=== PATIENT | female | born 1950 | race Caucasian/White ===

== ENCOUNTER 2017-01-15 14:22 | Emergency (ER) | payer MEDICARE, OTHER ==
[2017-01-15 14:43] VITALS: BP 113/45
--- NOTE | 2017-01-15 15:23 | UC ---
Minor Trauma HPI - HPI Summary HPI Summary: neck pain x 1 day s/p fall backward , hit her neck to a wooden stick , c/o neck pain , pain radiates to his shoulders, + numbness of both hand no loc , no headache, no n/v - History of Current Complaint Chief Complaint: UCHeadInjury Stated Complaint: DIZZY HEAD INJURY Time Seen by Provider: 01/15/17 14:45 Hx Obtained From: Patient Hx Last Menstrual Period: 08/29/92 Onset/Duration: Sudden Onset, Lasting Hours - 5, Still Present Onset Of Pain: Immediate Severity Initially: Moderate Severity Currently: Moderate Mechanism Of Injury: Blunt Trauma, Direct Blow, Fall From A Standing Position Aggravating Factor(s): Movement Alleviating Factor(s): Nothing Associated Signs And Symptoms: Negative: Loss Of Consciousness, Ecchymosis, Swelling - Allergies/Home Medications Allergies/Adverse Reactions: Allergies Allergy/AdvReac Type Severity Reaction Status Date / Time Bupropion [From Wellbutrin] Allergy See Comment Verified 01/15/17 14:31 Home Medications: Home Medications Ibuprofen [Ibuprofen 200 MG] 600 mg PO Q6H PRN 01/15/17 [History Confirmed 01/15] PMH/Surg Hx/FS Hx/Imm Hx Endocrine History: Diabetes Cardiovascular History: Cardiac Disease - Surgical History Surgical History: Yes Surgery Procedure, Year, and Place: t/a 1970, hysterectomy 1992, d & C x 8, cardiac stents x 6- last stent was placed 02/2015- [facility] - Family History Known Family History: Positive: Hypertension, Diabetes - Social History Alcohol Use: None Substance Use Type: Prescribed Smoking Status (MU): Never Smoked Tobacco - Immunization History Most Recent Tetanus Shot: 2009 Review of Systems Constitutional: Negative Skin: Negative Eyes: Negative ENT: Negative Respiratory: Negative Cardiovascular: Negative Neurovascular: Decreased Sensation - bilateral hand Musculoskeletal: Arthralgia - neck pain All Other Systems Reviewed And Are Negative: Yes Physical Exam Triage Information Reviewed: Yes Appearance: Well-Appearing, Pain Distress, Obese Vital Signs: Initial Vital Signs Temp 97.7 F 01/15/17 14:36 Pulse 65 01/15/17 14:36 Resp 18 01/15/17 14:36 BP 113/45 01/15/17 14:36 Pulse Ox 98 01/15/17 14:36 Vital Signs Reviewed: Yes Eyes: Positive: Conjunctiva Clear ENT: Positive: Normal ENT inspection, Hearing grossly normal, Pharynx normal Neck: Positive: Supple, Nontender, No Lymphadenopathy Respiratory: Positive: Chest non-tender, Lungs clear, Normal breath sounds Cardiovascular: Positive: RRR, No Murmur, Pulses Normal Abdominal Exam: Normal Abdomen Description: Positive: Nontender, Soft. Negative: CVA Tenderness (R), CVA Tenderness (L), Distended, Guarding Bowel Sounds: Positive: Present Musculoskeletal: Positive: Strength Intact, No Edema, ROM Limited @, Other: - neck: no cervical spine tenderness, limited ROM on flexion , extension, rotation Neurological: Positive: Alert Skin Exam: Normal Minor Trauma Course/Dx - Differential Dx/Diagnosis Provider Diagnoses: contusion neck Discharge - Discharge Plan Condition: Stable Disposition: HOME Patient Education Materials: Contusion in Adults (ED), Cervical Sprain (ED) Referrals: Jason Mercado MD [Primary Care Provider] - 5 Days
--- NOTE | 2017-01-15 15:46 | RAD ---
Indication: Neck pain. 3 views of the cervical spine demonstrates vertebral bodies to be normal in height. Disc space narrowing at C2-C3, C5-C6 is noted. The entire cervical spine is not visualized. IMPRESSION: Degenerative disc disease at C2-C3 and C5-C6. C7-T1 is not visualized.
== END 2017-01-15 15:50 | disposition home or self-care (01) ==
LOC: UCCORT 14:22
DX: S10.93XA Contusion of unspecified part of neck, initial encounter (principal); W18.09XA Striking against other object with subsequent fall, initial encounter; Y93.9 Activity, unspecified; Y92.9 Unspecified place or not applicable; E11.8 Type 2 diabetes mellitus with unspecified complications; E66.9 Obesity, unspecified; Z95.5 Presence of coronary angioplasty implant and graft; Z90.710 Acquired absence of both cervix and uterus
CPT/HCPCS: 72040; 99212; G0463

== ENCOUNTER 2017-05-14 06:50 | Inpatient (IN) | payer MEDICARE ==
--- NOTE | 2017-05-06 18:57 | HP ---
HISTORY AND PHYSICAL: DATE OF ADMISSION/SURGERY: 05/14/17 DATE OF OFFICE VISIT: 05/04/17 SURGEON: Cait Heller MD * (DICTATED BY THERESE DURON) PROCEDURE: Right total hip arthroplasty. CHIEF COMPLAINT: Right hip pain. HISTORY OF PRESENT ILLNESS: Ms. Smith is a 66-year-old female with complaints of right hip pain secondary to end-stage osteoarthritis. She has failed conservative management and elected to proceed with a right total hip arthroplasty, which is scheduled for 05/14/[address] Heller. PAST MEDICAL HISTORY: Diabetes, hypertension, prior KS, high cholesterol, hemochromatosis, sleep apnea. PAST SURGICAL HISTORY: Six cardiac stents placed, tonsillectomy, adenoidectomy , hysterectomy. CURRENT MEDICATIONS: 1. Oxycodone 15 mg every 4 hours. 2. Valsartan 40 mg daily. 3. Amlodipine 10 mg daily. 4. Cyclobenzaprine 10 mg 3 times a day as needed. 5. Lantus. 6. NovoLog. 7. Zolpidem tartrate 10 mg daily. 8. Atorvastatin calcium 40 mg daily. 9. Carvedilol 3.125 mg 3 times a day. 10. Plavix 75 mg daily. 11. Fenofibrate 54 mg daily. 12. Glipizide 10 mg twice a day. 13. Ranexa 1000 mg twice a day. 14. Aspirin 81 mg daily. 15. Gabapentin 600 mg twice a day, 300 mg q.h.s. ALLERGIES: To WELLBUTRIN and TYLENOL. FAMILY HISTORY: Heart disease, hypertension, diabetes, stroke, and Alzheimer's. SOCIAL HISTORY: She is a 66-year-old female. She lives with her daughter. She does not smoke, use drugs or alcohol. She is a retired nurse. REVIEW OF SYSTEMS: A complete 14-point review of systems was reviewed with the patient, was positive for diabetes. She denies history of DVT, PE, or anesthesia problems. PHYSICAL EXAMINATION GENERAL: She is well developed, well nourished, in no acute distress. VITAL SIGNS: She stands 5 feet 2 inches tall, weighs 197 pounds. Her blood pressure is 129/60, heart rate is 72. HEENT: Normocephalic, atraumatic. NECK: Supple. No palpable lymph nodes. PULMONARY: Lungs are clear to auscultation bilaterally. CARDIO: Regular rate and rhythm. Strong S1, S2. ABDOMEN: Soft, nontender, nondistended. NEUROLOGICAL: Alert and oriented x3. Cranial nerves II through XII are intact. MUSCULOSKELETAL: Right lower extremity, skin is intact. There are no open wounds or abrasions. She has decreased internal and external rotation of her right hip. She walks with an antalgic type gait. She has 2+ dorsalis pedis pulses. Her lower extremity muscle group strengths are intact at 5/5 and she has intact sensation. ASSESSMENT AND PLAN: Ms. Smith is a 66-year-old female with complaints of right hip pain secondary to end-stage osteoarthritis. She has failed conservative management and elected to proceed with a right total hip arthroplasty, which is scheduled for 05/14/[address] Heller discussed the risks and benefits of the surgery at today's visit and all of her questions were answered. She was told to stop her Plavix and aspirin 1 week prior to the surgery. She will follow up with Dr. Heller in 2 weeks after the surgery. THERESE DURON [id number]/[facility] #: [id number] MYRTLE
[~2017-05-14 06:50] MED LIST: Buffered Lidocaine 0.9% SYRIN* 5 ML/SYR SYRINGE INTRADERM ONE; Famotidine IV* 10 MG/ML 2 ML (20 mg) IV ONE; Metoclopramide TAB* 10 MG PO ONE
[2017-05-14] MEDS ORDERED: Metoclopramide TAB* 10 MG ONE (07:03)
[2017-05-14] MEDS ORDERED: Famotidine IV* 10 MG/ML 2 ML (20 mg) ONE (07:03)
[2017-05-14] MEDS ORDERED: Buffered Lidocaine 0.9% SYRIN* 5 ML/SYR SYRINGE ONE (07:04)
[2017-05-14] MEDS ORDERED: Ketorolac INJ* 30 MG/ML 1 ML VIAL ONE (07:40)
[2017-05-14] MEDS ORDERED: Propofol* 10 MG/ML 20 ML BTL IV PUSH ONE (07:40)
[2017-05-14] MEDS ORDERED: fentaNYL* 50 MCG/ML 2 ML VIAL (100 MCG VIAL) ONE ×3 (07:40→11:38)
[2017-05-14] MEDS ORDERED: Ondansetron INJ* 2 MG/ML VIAL ONE (07:40)
[2017-05-14] MEDS ORDERED: Lidocaine 2% PF * 5 ML VIAL ONE (07:40)
[2017-05-14] MEDS ORDERED: Dexamethasone IV* 4 MG/ML 1 ML (4 MG) ONE (07:40)
[2017-05-14] MEDS ORDERED: KETAMINE HCL* 50 MG/ML 10 ML VIAL ONE (07:40)
[2017-05-14] MEDS ORDERED: Midazolam* 1 MG/ML 5 ML VIAL (5 MG) ONE (07:40)
[2017-05-14] MEDS ORDERED: ceFAZolin 2 GM PREMIX (*) 2 GM/50 ML BAG IVPB ONE (07:53)
[2017-05-14] MEDS ORDERED: EPHEDrine (Pressors)* 50 MG/ML VIAL ONE (08:15)
[2017-05-14] MEDS ORDERED: Cisatracurium* 2 MG/ML MDV 5 ML ONE (08:15)
[2017-05-14] MEDS ORDERED: Phenylephrine IV* 40 MCG/ML 10 ML SYRINGE ONE ×2 (08:31→08:40)
[2017-05-14] MEDS ORDERED: Phenylephrine INJ* 10 MG/ML 1 ML VIAL (10 MG) ONE (08:40)
[2017-05-14] MEDS ORDERED: fentaNYL* 50 MCG/ML 5 ML VIAL (250 MCG VIAL) ONE (08:50)
[2017-05-14] MEDS ORDERED: Polyethylene Glycol 3350* 17 GM PACKET PO PRN (08:56)
[2017-05-14] MEDS ORDERED: diPHENhydraMINE IV* 50 MG/ML 1 ml VIAL (BENADRYL) IV PRN (08:56)
[2017-05-14] MEDS ORDERED: diPHENhydraMINE PO* 25 MG PO PRN (08:56)
[2017-05-14] MEDS ORDERED: Morphine INJ* 2 MG/ML 1 ML CARPUJECT IV PRN ×2 (08:56→09:14)
[2017-05-14] MEDS ORDERED: Ondansetron INJ* 2 MG/ML VIAL IV PRN ×2 (08:56→09:28)
[2017-05-14] MEDS ORDERED: Bisacodyl SUPP* 10 MG SUPP PR PRN (08:56)
[2017-05-14] MEDS ORDERED: Glycopyrrolate IV* 0.2 MG/ML 1 ML VIAL ONE (09:01)
[2017-05-14] MEDS ORDERED: Ibuprofen TAB* 600 MG PO PRN (09:06)
[2017-05-14] MEDS ORDERED: Bupivacaine 0.5% SDV PF* 30 ML VIAL ONE (09:59)
--- NOTE | 2017-05-14 10:21 | RAD ---
HISTORY: Right hip replacement COMPARISONS: February 23, 2017 VIEWS: 1, frontal portable intraoperative view of the right hip FINDINGS: Single portable intraoperative view of the right hip performed during right hip arthroplasty demonstrates a right hip arthroplasty with a temporary femoral sizing component. IMPRESSION: LIMITED PORTABLE INTRAOPERATIVE VIEW OF THE RIGHT HIP DURING ARTHROPLASTY
[2017-05-14] MEDS ORDERED: HYDROmorphone INJ* 1 MG/ML CARPUJECT SYRINGE ONE ×2 (10:53→12:32)
[2017-05-14] MEDS: HYDROmorphone INJ* 1 MG/ML CARPUJECT SYRINGE IV PRN ×2 (10:55→11:21)
[2017-05-14] MEDS ORDERED: Dextrose 50% Syringe 50 ML* 25 GM/50 ML SYRINGE IV PUSH PRN (11:00)
[2017-05-14] MEDS: fentaNYL* 50 MCG/ML 2 ML VIAL (100 MCG VIAL) IV PRN ×4 (11:02→12:18)
[2017-05-14] MEDS: oxyCODONE TAB* 5 MG TAB PO PRN ×3 (11:23→21:59)
[2017-05-14] MEDS ORDERED: oxyCODONE TAB* 5 MG TAB ONE (11:24)
--- NOTE | 2017-05-14 11:26 | RAD ---
INDICATION: Status post right hip arthroplasty COMPARISON: Preoperative x-ray February 23, 2017 TECHNIQUE: 3 views of the right hip were obtained. FINDINGS: The right hip prosthesis is anatomically aligned in the AP and lateral projections. There is no evidence of periprostatic fracture. Many visualized bones are intact and appropriately aligned. IMPRESSION: Anatomic alignment of recently placed right hip prosthesis.
[2017-05-14] MEDS: Insulin LISPRO* 1 UNITS UNIT SUBCUT SCH ×2 (13:56→17:51)
[2017-05-14] MEDS: Gabapentin CAP(*) 300 MG PO SCH ×2 (13:57→21:25)
[2017-05-14] MEDS: Cyclobenzaprine TAB* 10 MG PO SCH ×2 (13:57→21:25)
[2017-05-14] MEDS ORDERED: Carvedilol TAB* 3.125 MG PO SCH (14:00)
[2017-05-14] MEDS: Docusate CAP* 100 MG PO SCH ×2 (14:02→21:20)
[2017-05-14] MEDS: Carvedilol TAB* 3.125 MG PO SCH ×2 (14:31→21:23)
[2017-05-14] MEDS: Morphine INJ* 2 MG/ML 1 ML SYRINGE (TWO MG - NEW SYRINGE VERSION) IV PRN (15:31)
[2017-05-14] MEDS: ceFAZolin 1 GM VIAL(*) 1 GM in NS 0.9% 50 ML* 50 ML IVPB SCH (16:52)
[2017-05-14] MEDS ORDERED: Warfarin TAB(*) 6 MG PO ONE (17:00)
[2017-05-14] MEDS: Atorvastatin* 40 MG TAB PO SCH (17:50)
--- NOTE | 2017-05-14 19:13 | CONS ---
CC: Dr. Mercado; Dr. Heller * CONSULTATION REPORT: DATE OF CONSULT: 05/14/17 PRIMARY CARE PROVIDER: Dr. Mercado. REQUESTING PHYSICIAN IN CONSULT: Dr. Heller. ATTENDING PHYSICIAN WHILE IN THE HOSPITAL: Nicolasa Jean Baptiste MD (report being dictated by Yoshi James NP). REASON FOR MEDICAL CONSULTATION: Medical management of comorbid medical conditions. HISTORY OF PRESENTING ILLNESS: I refer you to Dr. Heller's H and P for further details. In short, Ms. Smith is a 66-year-old female patient with a complex medical history. She is diabetic, has a history of CAD, SHAKIR, hypertension, hyperlipidemia, hemochromatosis, history of arthritis, and neuropathy, who presented in the outpatient setting to Dr. Heller's services with complaints of right hip pain. She failed conservative therapy and it was felt that she would benefit from a possible right total hip replacement. The patient underwent the procedure today. She underwent cardiac risk stratification with her PCP and her poultry process worker, but because of her complexity , we were asked to evaluate and consult and help manage her during her hospital stay. She was evaluated in the PACU. She states she is not having any chest pain. She denies any shortness of breath. Biggest complaint right now is that she is having some right hip pain. She is denying having any abdominal discomfort. No nausea, no vomiting. She denies feeling lightheaded and states that she does not feel like she is going to pass out. She, otherwise, is offering no other complaints besides the right hip pain. PAST MEDICAL HISTORY: Significant for: 1. Diabetes. 2. Hypertension. 3. CAD. 4. Hyperlipidemia. 5. SHAKIR. 6. Hemochromatosis. 7. Arthritis. 8. Neuropathy. PAST SURGICAL HISTORY: 1. She has had heart catheterization. 2. She has had tonsillectomy. 3. Hysterectomy. HOME MEDICATIONS: According to the preop list include: 1. Glipizide 1 tablet p.o. b.i.d. 2. Carvedilol 3.125 mg p.o. t.i.d. 3. Neurontin 600 mg p.o. t.i.d. 4. Ranexa 1000 mg p.o. b.i.d. 5. Norvasc 10 mg p.o. daily. 6. Ambien 10 mg at bedtime. 7. Oxycodone 15 mg every 6 hours as needed. 8. Imdur 60 mg p.o. in the morning. 9. Losartan 40 mg p.o. daily. 10. Ibuprofen 600 mg every 6 hours as needed. 11. Lantus, she states she was taking 90 units in the morning and 80 units at bedtime. 12. Lispro 40 units t.i.d. 13. Aspirin 81 mg daily. 14. Lipitor 40 mg daily. 15. Plavix 75 mg daily. 16. Flexeril 10 mg p.o. t.i.d. 17. Fenofibrate 54 mg p.o. at bedtime. 18. Lasix 40 mg daily. ALLERGIES TO MEDICATIONS: Include WELLBUTRIN and TYLENOL. She states TYLENOL does not work. FAMILY HISTORY: Both her mom and father had a history of CAD. SOCIAL HISTORY: She does not smoke, she does not drink. Surrogate decision maker is her daughter, Ronnell. REVIEW OF SYSTEMS: There is no documented fever. She denied having any significant weight change. There is no double vision. She denies having any ear discharge. There is no rhinorrhea. No sore throat. No thyroid enlargement. She denies having any chest pain, there is no orthopnea, there is no nocturnal dyspnea. There was no abdominal pain. There is no nausea, no vomiting. There is no dysuria, no frequency, no seizure, no loss of consciousness. No pruritus and no skin ulcerations. Review of 14 systems completed, all others negative. PHYSICAL EXAMINATION: General: At this time, Ms. Smith is a 66-year-old female patient. She is sitting in the PACU stretcher. She does not appear to be in any acute distress. Vital Signs: Blood pressure 91/57, pulse 63, respirations 16, O2 sat 95% on 3 L, temperature 97.5. HEENT: Head: Atraumatic , normocephalic. Eyes: Sclerae anicteric, not pale. Pupils reactive to light. Neck: Supple. Throat: Oral mucosa appears to be dry. No oropharyngeal erythema. Lungs: Clear to auscultation bilaterally. No wheezes, rales, or rhonchi. Heart: Sounds S1, S2. Regular rate and rhythm. No murmurs, rubs or gallops. Abdomen: Soft, flat, nontender. Bowel sounds hypoactive. Extremities: Pulses 2+ throughout. Distal CSM checks are intact bilaterally. She is unable to move the lower extremity as she is in a hip abductor pillow. She is moving her upper extremities with 5/5 strength. Neurological: She is drowsy, but she does awaken to her name being called. She answers questions. She is alert and oriented x3. Her speech is clear. Her tongue is midline. She had no gross focal deficits. Skin: Skin is intact with the exception that she has an incision to the right hip, which is covered with ABD dressing, which is clean, dry, and intact. DIAGNOSTIC STUDIES/LAB DATA: Her labs preoperatively, WBC is 6.8, RBC of 3.96, hemoglobin of 12.6, hematocrit 36, platelet count of 249,000. INR 1.04. Sodium 140, potassium 4.1, chloride 105, bicarb 28, BUN 16, creatinine 0.96, glucose of 71. Total bili 0.4, AST 15, ALT 6, and alk phos 78. Urine preop showed 2+ leukocyte esterase, 2+ WBC. Microbiology was negative. She did have a verbal report of a stress test from November of this year, which was negative from her cardiology notes. Also, EKG showed a sinus rhythm, rate of 71, no ST elevations or T-wave inversions. She did have a preop chest x-ray, which showed no acute disease. Old medical records reviewed. ASSESSMENT AND PLAN: Ms. Smith is a 66-year-old female patient with multiple medical problems, coming into our orthopedic services today for elective right total hip. Recommendations at this point are: 1. Status post right total hip. We will defer the management to Dr. Heller and her team. 2. Diabetes. I am going to cut her Lantus in half to 45 units subcu b.i.d. She is on 80 at night and 90 in the morning typically. When she is more awake and eating more, we will slowly increase her dose back to her baseline and we will continue the sliding scale. When she goes home, she can go back on glipizide and Lantus. 3. Hypertension. I am just going to continue her Imdur and her carvedilol with hold parameters. I am holding the amlodipine and the Lasix for the time being. We will restart these when her blood pressure tolerates. Her last blood pressure was 105/66. We will continue to follow this closely. 4. Coronary artery disease. The Orthopedics did restart her Plavix. When it is deemed safe, she should go back also on her aspirin, but this could be addressed with the primary as long as she is at least on the Plavix. We will go ahead and continue the beta navi and her Imdur, and I would continue her Ranexa. In the immediate postoperative setting, I am holding her ARB. She is on valsartan. 5. Coronary artery disease. We will restart her ARB when able. Also, she is on a statin therapy as well. 6. Hyperlipidemia. Continue statin therapy. 7. Obstructive sleep apnea. Continue CPAP. 8. Arthritis. She can follow up with her PCP. 9. Neuropathy. P.r.n. pain meds have been made available. 10. Hemochromatosis. Again, we will continue to monitor. Not an active issue currently. 11. DVT prophylaxis. Defer to the primary team. 12. Code status. Full code. 13. Fluids, electrolytes, and nutrition. I would recommend a consistent carb diet. TIME SPENT: On this consult, 60 minutes, greater than half the time was spent face- to-face with the patient obtaining my history and physical, other half time was spent going over the plan of care with the patient and implementing the plan of care. I did discuss the plan of care with my attending, Dr. Jean Baptiste; she is in agreement. YOSHI JAMES, LINA [id number]/[facility] #: [id number] MYRTLE
[2017-05-14] MEDS ORDERED: Zolpidem TAB* 10 MG PO SCH (21:00)
[2017-05-14] MEDS: CMCS:Ranolazine (NF) 500 MG TAB PO SCH (21:25)
[2017-05-14] MEDS: Magnesium Hydroxide LIQ* 30 ML UDC PO SCH (21:26)
[2017-05-14] MEDS: Insulin GLARGINE(*) 1 UNITS UNIT SUBCUT SCH (21:26)
[2017-05-14] MEDS: FENOFIBRATE 54 MG PO SCH (21:26)
[2017-05-15] MEDS: ceFAZolin 1 GM VIAL(*) 1 GM in NS 0.9% 50 ML* 50 ML IVPB SCH ×2 (00:28→09:47)
[2017-05-15] MEDS: Morphine INJ* 2 MG/ML 1 ML SYRINGE (TWO MG - NEW SYRINGE VERSION) IV PRN ×3 (00:29→20:51)
[2017-05-15] MEDS: Zolpidem TAB* 10 MG PO PRN ×2 (00:29→23:39)
[2017-05-15 05:40] LABS: Hematocrit 25 % (35-47); Hemoglobin 8.5 g/dl (12.0-16.0); Mean Corpuscular HGB Conc 34 g/dl (31-36); Mean Corpuscular Hemoglobin 32 pg (27-31); Mean Corpuscular Volume 94 fL (80-97); Mean Platelet Volume 10 um3 (7.4-10.4); Red Blood Count 2.66 10^6/ul (4.0-5.4); Red Cell Distribution Width 13 % (10.5-15); White Blood Count 12.9 10^3/ul (3.5-10.8)
[2017-05-15 05:50] LABS: BUN/Creatinine Ratio 24.1 (8-20); Calcium 8.7 mg/dL (8.6-10.3); EGFR African American 60.5 (>60)
[2017-05-15 05:52] LABS: Potassium 5.1 mmol/L (3.5-5.0)
[2017-05-15] MEDS: Insulin LISPRO* 1 UNITS UNIT SUBCUT SCH ×3 (08:38→17:33)
[2017-05-15] MEDS: Insulin GLARGINE(*) 1 UNITS UNIT SUBCUT SCH ×2 (08:39→20:48)
[2017-05-15] MEDS: Cyclobenzaprine TAB* 10 MG PO SCH ×3 (08:42→20:47)
[2017-05-15] MEDS: oxyCODONE TAB* 5 MG TAB PO PRN ×4 (08:42→23:39)
[2017-05-15] MEDS: CMCS:Ranolazine (NF) 500 MG TAB PO SCH ×2 (08:42→20:50)
[2017-05-15] MEDS: Gabapentin CAP(*) 300 MG PO SCH ×3 (08:43→20:48)
[2017-05-15] MEDS: Docusate CAP* 100 MG PO SCH ×2 (08:43→20:47)
[2017-05-15] MEDS: Carvedilol TAB* 3.125 MG PO SCH ×3 (08:44→20:46)
[2017-05-15] MEDS: Isosorbide Mononitrate ER TAB* 60 MG PO SCH (08:44)
[2017-05-15] MEDS: Magnesium Hydroxide LIQ* 30 ML UDC PO SCH ×2 (08:47→20:28)
[2017-05-15] MEDS ORDERED: amLODIPine TAB* 5 MG PO SCH (09:00)
[2017-05-15] MEDS ORDERED: Enoxaparin(*) 40 MG/0.4 ML SYR SUBCUT SCH (09:00)
[2017-05-15] MEDS ORDERED: Vitamin THERAPEUTIC TAB PO SCH (09:00)
[2017-05-15] MEDS ORDERED: Pneumococcal *Vac Polyvalent 0.5 ML VIAL IM ONE (09:00)
[2017-05-15] MEDS ORDERED: Isosorbide Mononitrate ER TAB* 60 MG PO SCH (09:00)
[2017-05-15] MEDS ORDERED: Furosemide TAB* 20 MG PO SCH (09:00)
[2017-05-15] MEDS ORDERED: Valsartan TAB* 40 MG PO SCH (09:00)
--- NOTE | 2017-05-15 09:33 | PN ---
Subjective Date of Service: 05/15/17 Interval History: Patient seen this morning. Reports pain fairly well controlled. Appetite is returning. No N/V. Pires removed, has not urinated yet. Passing gas. States she has had 6 stents placed, has been told she will need CABG in the future. Family History: Unchanged from Admission Social History: Unchanged from Admission Past Medical History: Unchanged from Admission Objective Active Medications: Atorvastatin Calcium (Lipitor*) 40 mg PO QPM [facility] Last Admin: 05/14/17 17:50 Dose: 40 mg Bisacodyl (Dulcolax Supp*) 10 mg MS DAILY PRN PRN Reason: constipation Carvedilol (Coreg Tab*) 3.125 mg PO TID [facility] Last Admin: 05/15/17 08:44 Dose: 3.125 mg Clopidogrel Bisulfate (Plavix Tab*) 75 mg PO QAM [facility] Cyclobenzaprine HCl (Flexeril Tab*) 10 mg PO TID [facility] Last Admin: 05/15/17 08:42 Dose: 10 mg Dextrose (D50w Syringe 50 Ml*) 12.5 gm IV PUSH .FOR FS < 60 - SS PRN PRN Reason: FS < 60 Diphenhydramine HCl (Benadryl Iv*) 25 mg IV Q6H PRN PRN Reason: itching Diphenhydramine HCl (Benadryl Po*) 25 mg PO Q6H PRN PRN Reason: itching Docusate Sodium (Colace Cap*) 100 mg PO BID [facility] Last Admin: 05/15/17 08:43 Dose: 100 mg Enoxaparin Sodium (Lovenox(*)) 40 mg SUBCUT Q24H [facility] Last Admin: 05/15/17 08:47 Dose: 40 mg Gabapentin (Neurontin Cap(*)) 600 mg PO TID [facility] Last Admin: 05/15/17 08:43 Dose: 600 mg Lactated Ringer's (Lactated Ringers 1000 Ml Bag*) 1,000 mls @ 100 mls/hr IV PER RATE [facility] Last Admin: 05/15/17 00:27 Dose: 100 mls/hr Ibuprofen (Motrin Tab*) 600 mg PO Q6H PRN PRN Reason: PAIN Insulin Glargine (Lantus(*)) 45 units SUBCUT Q12H [facility] Last Admin: 05/15/17 08:39 Dose: 45 units Insulin Human Lispro (Humalog*) 0 units SUBCUT AC [facility] PRN Reason: Protocol Last Admin: 05/15/17 08:38 Dose: 2 units Isosorbide Mononitrate (Imdur Er Tab*) 60 mg PO QAM [facility] Last Admin: 05/15/17 08:44 Dose: 60 mg Lactulose (Lactulose*) 30 ml PO Q6H PRN PRN Reason: constipation Magnesium Hydroxide (Milk Of Magnesia Liq*) 30 ml PO BID [facility] Last Admin: 05/15/17 08:47 Dose: Not Given Morphine Sulfate (Morphine Inj (Syringe)*) 2 mg IV Q3H PRN PRN Reason: PAIN Last Admin: 05/15/17 00:29 Dose: 2 mg Multivitamins (Theragran Tab*) 1 tab PO DAILY [facility] Last Admin: 05/15/17 08:43 Dose: 1 tab Nf* (Fenofibrate [ (Fenofibrate] 54 Mg)) 54 mg PO BEDTIME [facility] Last Admin: 05/14/17 21:26 Dose: Not Given Ondansetron HCl (Zofran Inj*) 4 mg IV Q6H PRN PRN Reason: nausea Oxycodone HCl (Roxycodone Tab*) 15 mg PO Q4H PRN PRN Reason: PAIN - MILD TO MODERATE Last Admin: 05/14/17 17:57 Dose: 15 mg Oxycodone HCl (Roxycodone Tab*) 20 mg PO Q4H PRN PRN Reason: PAIN - MODERATE TO SEVERE Last Admin: 05/15/17 08:42 Dose: 20 mg Polyethylene Glycol/Electrolytes (Miralax*) 17 gm PO DAILY PRN PRN Reason: Constipation Ranolazine (Ranexa (Nf)) 1,000 mg PO BID [facility] Last Admin: 05/15/17 08:42 Dose: 1,000 mg Zolpidem Tartrate (Ambien Tab*) 10 mg PO BEDTIME PRN PRN Reason: SLEEP Last Admin: 05/15/17 00:29 Dose: 10 mg Vital Signs 05/14/17 05/14/17 05/14/17 10:42 10:45 10:49 Temperature 97.5 F Pulse Rate 63 64 Respiratory 16 16 Rate Blood Pressure 91/57 78/45 (mmHg) O2 Sat by Pulse 95 95 94 Oximetry 05/14/17 05/14/17 05/14/17 12:30 12:45 13:18 Temperature 97.7 F Pulse Rate 68 67 66 Respiratory 23 18 18 Rate Blood Pressure 114/54 103/55 101/52 (mmHg) O2 Sat by Pulse 97 96 99 Oximetry 05/15/17 05/15/17 05/15/17 03:23 07:41 08:42 Temperature 98.3 F 98.2 F Pulse Rate 79 77 Respiratory 18 16 16 Rate Blood Pressure 112/45 103/49 (mmHg) O2 Sat by Pulse 98 94 Oximetry Oxygen Devices in Use Now: None Appearance: Middle-aged, F, sitting in chair in NAD Eyes: No Scleral Icterus Ears/Nose/Mouth/Throat: Mucous Membranes Moist Neck: NL Appearance and Movements; NL JVP Respiratory: Symmetrical Chest Expansion and Respiratory Effort, Clear to Auscultation Cardiovascular: NL Sounds; No Murmurs; No JVD, RRR Abdominal: NL Sounds; No Tenderness; No Distention Lymphatic: No Cervical Adenopathy Extremities: - - R hip dressing in place, c/d/i, minimal edema in RLE Skin: No Rash or Ulcers Neurological: Alert and Oriented x 3 Result Diagrams: 05/15/17 04:53 05/15/17 04:53 Assess/Plan/Problems-Billing Assessment: R LUIS ARMANDO in a 66 yo F with hx of HTN, CAD s/p stent x 6, DM, hemochromatosis, neuropathy, SHAKIR, hemochromatosis - Patient Problems (1) Status post total hip replacement, right Current Visit: Yes Comment: Mangement as per Ortho. Patient on Coumadin/Lovenox. (2) HTN (hypertension) Current Visit: Yes Comment: BPs stable. Continue Coreg and Imdur. Continue to hold Losartan, Amlodipine and Lasix for now. (3) Diabetes Current Visit: Yes Comment: BGs well controlled. Continue reduced Lantus and HISS. Holding home Glipizide. (4) CAD (coronary artery disease) Current Visit: Yes Comment: Plavix to resume today. Holding ASA as patient will be on Coumadin. Continue beta-navi and statin. Continue Ranexa. (5) SHAKIR (obstructive sleep apnea) Current Visit: Yes Comment: CPAP qhs (6) Hemochromatosis Current Visit: Yes Comment: Not an active issue at this time. F/U as outpatient. (7) DVT prophylaxis Current Visit: Yes Comment: Lovenox/Coumadin
[2017-05-15] MEDS: Clopidogrel TAB* 75 MG PO SCH (09:47)
--- NOTE | 2017-05-15 11:28 | PN ---
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 Patient c/o hip pain, however is doing well with pain medication. VSS afebrile overnight. Objective: General- Well appearing, NAD, AO MSK- Dressing intact, no drainage noted, non-indurated. + DF/PF b/l, PT 2+ b/ l, neg homans b/l. 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 Plan: - Elevated K- continue to monitor, D/C daily MVI, lab draw tomorrow - DVT prophl- Coumadin 4mg tonight, continue lovenox. - Elevated creatinine- mild, continue to monitor - Resume plavix for stents - Continue PT - Continue current pain regimen - Patient for D/C to [facility], likely Thursday, has own transportation. Active Medications Generic Name Dose Route Start Last Admin Trade Name Freq PRN Reason Stop Dose Admin Atorvastatin Calcium 40 mg 05/14/17 18:00 05/14/17 17:50 Lipitor* PO 40 mg QPM YONNY Administration Bisacodyl 10 mg 05/14/17 08:56 Dulcolax Supp* DE DAILY PRN constipation Carvedilol 3.125 mg 05/14/17 14:00 05/15/17 08:44 Coreg Tab* PO 3.125 mg TID YONNY Administration Clopidogrel Bisulfate 75 mg 05/15/17 09:00 05/15/17 09:47 Plavix Tab* PO 75 mg QAM YONNY Administration Cyclobenzaprine HCl 10 mg 05/14/17 14:00 05/15/17 08:42 Flexeril Tab* PO 10 mg TID YONNY Administration Dextrose 12.5 gm 05/14/17 11:00 D50w Syringe 50 Ml* IV PUSH .FOR FS < 60 - SS PRN FS < 60 Diphenhydramine HCl 25 mg 05/14/17 08:56 Benadryl Iv* IV Q6H PRN itching Diphenhydramine HCl 25 mg 05/14/17 08:56 Benadryl Po* PO Q6H PRN itching Docusate Sodium 100 mg 05/14/17 09:00 05/15/17 08:43 Colace Cap* PO 100 mg BID YONNY Administration Enoxaparin Sodium 40 mg 05/15/17 09:00 05/15/17 08:47 Lovenox(*) SUBCUT 40 mg Q24H YONNY Administration Gabapentin 600 mg 05/14/17 14:00 05/15/17 08:43 Neurontin Cap(*) PO 600 mg TID YONNY Administration Lactated Ringer's 1,000 mls @ 100 mls/hr 05/14/17 09:00 05/15/17 00:27 Lactated Ringers 1000 Ml Bag* IV 100 mls/hr PER RATE YONNY Administration Insulin Glargine 45 units 05/14/17 21:00 05/15/17 08:39 Lantus(*) SUBCUT 45 units Q12H YONNY Administration Insulin Human Lispro 0 units 05/14/17 11:30 05/15/17 08:38 Humalog* SUBCUT 2 units AC YONNY Administration Protocol Isosorbide Mononitrate 60 mg 05/15/17 09:00 05/15/17 08:44 Imdur Er Tab* PO 60 mg QAM YONNY Administration Lactulose 30 ml 05/14/17 08:56 Lactulose* PO Q6H PRN constipation Magnesium Hydroxide 30 ml 05/14/17 21:00 05/15/17 08:47 Milk Of Magnesia Liq* PO Not Given BID YONNY Morphine Sulfate 2 mg 05/14/17 15:21 05/15/17 11:12 Morphine Inj (Syringe)* IV 2 mg Q3H PRN Administration PAIN Nf* (Fenofibrate [ 54 mg 05/14/17 21:00 05/14/17 21:26 Fenofibrate] 54 Mg) PO Not Given BEDTIME YONNY Ondansetron HCl 4 mg 05/14/17 08:56 Zofran Inj* IV Q6H PRN nausea Oxycodone HCl 15 mg 05/14/17 08:56 05/14/17 17:57 Roxycodone Tab* PO 15 mg Q4H PRN Administration PAIN - MILD TO MODERATE Oxycodone HCl 20 mg 05/14/17 09:09 05/15/17 08:42 Roxycodone Tab* PO 20 mg Q4H PRN Administration PAIN - MODERATE TO SEVERE Polyethylene Glycol/Electrolytes 17 gm 05/14/17 08:56 Miralax* PO DAILY PRN Constipation Ranolazine 1,000 mg 05/14/17 21:00 05/15/17 08:42 Ranexa (Nf) PO 1,000 mg BID YONNY Administration Warfarin Sodium 4 mg 05/15/17 17:00 Coumadin Tab(*) PO 05/15/17 17:01 ONCE@1700 ONE Protocol Zolpidem Tartrate 10 mg 05/14/17 10:59 05/15/17 00:29 Ambien Tab* PO 10 mg BEDTIME PRN Administration SLEEP
--- NOTE | 2017-05-15 14:03 | OP ---
OPERATIVE REPORT: DATE OF OPERATION: 05/14/17 DATE OF : 54 SURGEON: Cait Heller MD. HUMAN RESOURCES MGR: THERESE Gil. Douglas did help throughout the procedure with preparation of the leg, wound retraction, manipul ation of the hip, and wound closure. ANESTHESIOLOGIST: Dr. Nichols. ANESTHESIA: General. PRE-OP DIAGNOSIS: Severe endstage degenerative osteoarthritis of the right hip joint. POST-OP DIAGNOSIS: Severe endstage degenerative osteoarthritis of the right hip joint. OPERATIVE PROCEDURE: Right total hip arthroplasty. HARDWARE USED: This is Oli uncemented total hip arthroplasty hardware. For the cup, a Tritanium cluster hole hell 50D. A single 20 mm cancellous bone screw. For the insert, a Trident X3 0-degree polyethylene insert 32D. For the stem, an Accolade TMZF size 1 with 127 degree neck. For the head, a Biolox delta ceramic V40 femoral head 32, +0. COMPLICATIONS: None. ESTIMATED BLOOD LOSS: 300 cc. SPECIMEN: Femoral head and acetabular reaming sent to pathology. BRIEF HISTORY/INDICATIONS: Ms. Smith is a 66-year-old female with over 6 months of increasingly severe right hip pain. Radiographs showed [id number] arthritis. She failed conservative treatment with anti-inflammatories, pain medication, physical therapy, and ambulatory assistive devices. She elected to undergo right total hip arthroplasty due to continued pain and decreased quality of life. Informed consent was obtained from the patient. She understood the risks of surgery included but we re not limited to bleeding, infection, damage to nearby structures, continued pain, need for further surgery, intraoperative fracture, nerve palsy, hardware failure or loosening, dislocation, leg length discrepancy, stroke, heart attack, blood clot, and . She wished to proceed. INTRAOPERATIVE FINDINGS: Intraoperatively, the patient was noted to have endstage arthritis with com plete loss of cartilage along the acetabulum and femoral head. There was significant osteophyte forma tion as well. DESCRIPTION OF PROCEDURE: Ms. Smith was identified in the preanesthesia unit. Her right lower ex tremity was marked as the correct operative side. Informed consent was signed and placed in the aster t. The patient was taken to the operating room and placed under general anesthesia. A Pires cathete r was placed. She was placed in the left lateral decubitus position on the pegboard. All bony promi nences were well padded. Right lower extremity was prepped and draped in the usual sterile fashion. Preop time-out was made to correctly identify the patient's side and site. Appropriate perioperativ e antibiotics were given within 1 hour of incision. A 12-cm posterior hip incision was made with a 10 blade and carried down to the lateral fascial layer . The lateral fascial layer was then incised in line with the skin and a Charnley retractor was plac ed. The piriformis and conjoined tendons were identified off the posterolateral femur and tagged wit h #5 Ethibonds. The posterolateral capsular flap was also made with electrocautery and tagged with # 5 Ethibonds. The hip was carefully dislocated. Lesser troch to center of the femoral head measured 55 mm. The oscillating saw was used to make the appropriate femoral neck cut. Femoral head was sent to Pathology. The femur was carefully retracted anteriorly. After appropriate placement of retractors, the acetabu lum was visualized. Long handled knife was used to sharply remove any labrum from the acetabular rim . Any soft tissue was removed from the condylar notch. The acetabulum was sequentially reamed up to a size 49. Subchondral bleeding bone bed was obtained. A 49 trial had excellent fit and stability. Final implant chosen was Tritanium cluster hole shell 50D. This was impacted into the acetabulum wit hout difficulty. Stability of the cup was excellent with appropriate anteversion and abduction angle . A single 20 mm screw was placed in the superior posterior quadrant for extra stability. Trident X 3 0- degree liner 32D was chosen and impacted into the acetabulum. Stability of the liner was checke d and rechecked and noted to be stable. Attention was next turned to the preparation of the femoral canal. A canal finder was used to enter the proximal femur. The femur was sequentially broached up to a size 1. Size 1 had excellent fit an d appropriate anteversion. Final implant chosen was an Accolade TMZF size 1 with a 127 degree neck. This was impacted into the femur without difficulty. A 32, +0 femoral head trial was chosen and viviana martin. Lesser troch to the center of the femoral head measured 56 mm. The hip was reduced and taken th rough range of motion. The hip was stable in all positions. There was good soft tissue tension and appropriate leg lengths. A 36, +0 ceramic Biolox V40 femoral head was chosen as the final implant. This was impacted onto the femoral neck without difficulty. The hip was copiously irrigated with miguel rile saline. The hip was carefully reduced and taken through range of motion. The hip was stable in all positions. Previously tagged capsule and tendons were reapproximated to the posterolateral femu r through 2 trochanteric drill holes. Lateral fascia layer was closed using interrupted #1 Vicryls. The rest of the incision was closed in a layered fashion using 0 and 2-0 Vicryls. Skin was closed u sing running 3-0 Monocryl suture and Dermabond. Sterile Adaptic, 4x4s, and paper tape were placed ov er the incision. The patient's anesthesia was reversed without difficulty. She was taken to the PACU in stable condit ion. Intended weightbearing will be weightbearing as tolerated with posterior hip precautions. Inte nded DVT prophylaxis will be Coumadin with a Lovenox bridge. [id number]/[facility] #: [id number]
[2017-05-15] MEDS ORDERED: Warfarin TAB(*) 4 MG PO ONE (17:00)
[2017-05-15] MEDS ORDERED: Nitroglycerin TAB 0.4 MG* 0.4 MG TAB SL PRN (17:29)
[2017-05-15] MEDS: Atorvastatin* 40 MG TAB PO SCH (17:53)
[2017-05-15] MEDS: FENOFIBRATE 54 MG PO SCH (20:47)
[2017-05-15] MEDS: Isosorbide Mononitrate ER TAB* 30 MG PO SCH (20:50)
[2017-05-16] MEDS: oxyCODONE TAB* 5 MG TAB PO PRN ×4 (03:48→22:47)
[2017-05-16 05:14] LABS: Hematocrit 24 % (35-47); Hemoglobin 8.6 g/dl (12.0-16.0)
[2017-05-16 05:28] LABS: BUN/Creatinine Ratio 24.8 (8-20); Calcium 8.5 mg/dL (8.6-10.3); EGFR African American 67.9 (>60); EGFR Non-African American 52.8 (>60); Potassium 3.9 mmol/L (3.5-5.0)
[2017-05-16] MEDS: Insulin LISPRO* 1 UNITS UNIT SUBCUT SCH ×3 (07:49→16:47)
[2017-05-16] MEDS: Gabapentin CAP(*) 300 MG PO SCH ×3 (08:47→22:23)
[2017-05-16] MEDS: Isosorbide Mononitrate ER TAB* 60 MG PO SCH (08:47)
[2017-05-16] MEDS: Docusate CAP* 100 MG PO SCH ×2 (08:47→22:23)
[2017-05-16] MEDS: Cyclobenzaprine TAB* 10 MG PO SCH ×3 (08:47→22:19)
[2017-05-16] MEDS: CMCS:Ranolazine (NF) 500 MG TAB PO SCH ×2 (08:47→22:20)
[2017-05-16] MEDS: Clopidogrel TAB* 75 MG PO SCH (08:47)
[2017-05-16] MEDS: Carvedilol TAB* 3.125 MG PO SCH ×3 (08:47→22:19)
[2017-05-16] MEDS: Insulin GLARGINE(*) 1 UNITS UNIT SUBCUT SCH ×3 (08:48→23:26)
[2017-05-16] MEDS: Magnesium Hydroxide LIQ* 30 ML UDC PO SCH ×2 (08:48→22:24)
--- NOTE | 2017-05-16 09:23 | PN ---
Progress Note - Progress Note Date of Service: 05/16/17 SOAP: Subjective: Pt. is alert, pain is controlled. Plan to go to [facility] in [place] tomorrow 10 am. Objective: RLE - dressing changed, inc c/i, with mod drainage. distally nvi. Vital Signs: Temp Pulse Resp BP Pulse Ox 98.7 F 78 16 119/56 95 05/16/17 07:53 05/16/17 07:53 05/16/17 08:47 05/16/17 07:53 05/16/17 07:53 Laboratory Results - last 24 hr 05/15/17 05/15/17 05/16/17 12:16 17:09 04:58 Hgb 8.6 L Hct 24 L INR (Anticoag Therapy) Sodium Potassium Chloride Carbon Dioxide Anion Gap BUN Creatinine Est GFR ( Amer) Est GFR (Non-Af Amer) BUN/Creatinine Ratio Glucose POC Glucose (mg/dL) 184 H 94 Calcium 05/16/17 05/16/17 05/16/17 04:58 04:58 07:33 Hgb Hct INR (Anticoag Therapy) 2.86 H Sodium 135 Potassium 3.9 Chloride 102 Carbon Dioxide 30 Anion Gap 3 BUN 26 H Creatinine 1.05 H Est GFR ( Amer) 67.9 Est GFR (Non-Af Amer) 52.8 BUN/Creatinine Ratio 24.8 H Glucose 108 H POC Glucose (mg/dL) 114 H Calcium 8.5 L Assessment: 66 yo F pod 2 s/p RTHA Plan: wbat - post hip precautions pt/ot d/c lovenox hold coumadin tonight plan d/c to [facility] in [place] tomorrow 05/17
[2017-05-16] MEDS: Morphine INJ* 2 MG/ML 1 ML SYRINGE (TWO MG - NEW SYRINGE VERSION) IV PRN (10:20)
--- NOTE | 2017-05-16 15:36 | PN ---
Subjective Date of Service: 05/16/17 Interval History: Patient seen this afternoon. Reports episode of chest pain last night that she said she would normally take nitro for, however it resolved prior to nitro being available. Initially I was under the impression that these episodes were fairly common for the patient but she states it has been months since her last anginal episode. Today has not had any further events. Feels she did well with PT today, planning for SNF tomorrow. Family History: Unchanged from Admission Social History: Unchanged from Admission Past Medical History: Unchanged from Admission Objective Active Medications: Atorvastatin Calcium (Lipitor*) 40 mg PO QPM YONNY Bisacodyl (Dulcolax Supp*) 10 mg AR DAILY PRN Carvedilol (Coreg Tab*) 3.125 mg PO TID YONNY Clopidogrel Bisulfate (Plavix Tab*) 75 mg PO QAM YONNY Cyclobenzaprine HCl (Flexeril Tab*) 10 mg PO TID YONNY Dextrose (D50w Syringe 50 Ml*) 12.5 gm IV PUSH .FOR FS < 60 - SS PRN Diphenhydramine HCl (Benadryl Iv*) 25 mg IV Q6H PRN Diphenhydramine HCl (Benadryl Po*) 25 mg PO Q6H PRN Docusate Sodium (Colace Cap*) 100 mg PO BID YONNY Gabapentin (Neurontin Cap(*)) 600 mg PO TID YONNY Lactated Ringer's (Lactated Ringers 1000 Ml Bag*) 1,000 mls @ 100 mls/hr IV PER RATE YONNY Insulin Glargine (Lantus(*)) 45 units SUBCUT Q12H YONNY Insulin Human Lispro (Humalog*) 0 units SUBCUT AC YONNY Isosorbide Mononitrate (Imdur Er Tab*) 60 mg PO QAM YONNY Isosorbide Mononitrate (Imdur Er Tab*) 30 mg PO BEDTIME YONNY Lactulose (Lactulose*) 30 ml PO Q6H PRN Magnesium Hydroxide (Milk Of Magnesia Liq*) 30 ml PO BID YONNY Morphine Sulfate (Morphine Inj (Syringe)*) 2 mg IV Q3H PRN Nitroglycerin (Nitroglycerin Tab 0.4 Mg*) 0.4 mg SL Q5M PRN Nf* (Fenofibrate [ (Fenofibrate] 54 Mg)) 54 mg PO BEDTIME YONNY Ondansetron HCl (Zofran Inj*) 4 mg IV Q6H PRN Oxycodone HCl (Roxycodone Tab*) 15 mg PO Q4H PRN Oxycodone HCl (Roxycodone Tab*) 20 mg PO Q4H PRN Pharmacy Profile Note (Coumadin Daily Reminder*) 1 note FOLLOW UP 1700 YONNY Polyethylene Glycol/Electrolytes (Miralax*) 17 gm PO DAILY PRN Ranolazine (Ranexa (Nf)) 1,000 mg PO BID OYNNY Zolpidem Tartrate (Ambien Tab*) 10 mg PO BEDTIME PRN Vital Signs 05/15/17 05/15/17 05/15/17 17:32 17:53 20:01 Temperature 98.0 F Pulse Rate 80 Respiratory 16 16 18 Rate Blood Pressure 120/52 (mmHg) O2 Sat by Pulse 97 Oximetry 05/16/17 05/16/17 05/16/17 07:53 08:47 10:20 Temperature 98.7 F Pulse Rate 78 Respiratory 18 16 16 Rate Blood Pressure 119/56 (mmHg) O2 Sat by Pulse 95 Oximetry 05/16/17 05/16/17 05/16/17 10:47 11:24 11:31 Temperature 98.7 F Pulse Rate 72 Respiratory 16 16 16 Rate Blood Pressure 109/57 (mmHg) O2 Sat by Pulse 96 Oximetry Oxygen Devices in Use Now: None Appearance: Middle-aged, F, laying in bed in NAD Eyes: No Scleral Icterus Ears/Nose/Mouth/Throat: Mucous Membranes Moist Neck: NL Appearance and Movements; NL JVP Respiratory: Symmetrical Chest Expansion and Respiratory Effort, Clear to Auscultation Cardiovascular: NL Sounds; No Murmurs; No JVD, RRR Abdominal: NL Sounds; No Tenderness; No Distention Lymphatic: No Cervical Adenopathy Extremities: No Edema Skin: - - Did not assess wound area Neurological: Alert and Oriented x 3 Result Diagrams: 05/16/17 04:58 05/16/17 04:58 Assess/Plan/Problems-Billing Assessment: R LUIS ARMANDO in a 66 yo F with hx of HTN, CAD s/p stent x 6, DM, hemochromatosis, neuropathy, SHAKIR, hemochromatosis - Patient Problems (1) Status post total hip replacement, right Current Visit: Yes Comment: Mangement as per Ortho. Mild post-op anemia, normally would not transfuse but with patient's history of CAD and anginal episode yesterday, will order 1u PRBC. Patient on Coumadin for DVT ppx. (2) HTN (hypertension) Current Visit: Yes Comment: BPs stable. Continue Coreg and Imdur 60 mg in AM and 30 mg qPM (corrected on home meds). Continue to hold Losartan, Amlodipine and Lasix for now. (3) Diabetes Current Visit: Yes Comment: BGs well controlled. Continue reduced Lantus and HISS. Holding home Glipizide. (4) CAD (coronary artery disease) Current Visit: Yes Comment: Transfuse as above. Continue Plavix. Holding ASA as patient will be on Coumadin. Continue beta-navi and statin. Continue Ranexa. (5) SHAKIR (obstructive sleep apnea) Current Visit: Yes Comment: CPAP qhs (6) Hemochromatosis Current Visit: Yes Comment: Not an active issue at this time. F/U as outpatient. (7) DVT prophylaxis Current Visit: Yes Comment: Coumadin
[2017-05-16] MEDS: Atorvastatin* 40 MG TAB PO SCH (17:54)
[2017-05-16] MEDS: Isosorbide Mononitrate ER TAB* 30 MG PO SCH (22:20)
[2017-05-16] MEDS: FENOFIBRATE 54 MG PO SCH (22:23)
[2017-05-16] MEDS ORDERED: Insulin GLARGINE(*) 1 UNITS UNIT ONE (23:26)
[2017-05-17] MEDS: Morphine INJ* 2 MG/ML 1 ML SYRINGE (TWO MG - NEW SYRINGE VERSION) IV PRN (01:03)
[2017-05-17 05:48] LABS: Hematocrit 26 % (35-47); Hemoglobin 9.3 g/dl (12.0-16.0)
[2017-05-17] MEDS: oxyCODONE TAB* 5 MG TAB PO PRN ×2 (05:58→10:04)
[2017-05-17] MEDS: Insulin LISPRO* 1 UNITS UNIT SUBCUT SCH ×2 (08:35→12:43)
[2017-05-17] MEDS: Clopidogrel TAB* 75 MG PO SCH (10:03)
[2017-05-17] MEDS: Cyclobenzaprine TAB* 10 MG PO SCH ×2 (10:03→12:50)
[2017-05-17] MEDS: Gabapentin CAP(*) 300 MG PO SCH ×2 (10:03→12:50)
[2017-05-17] MEDS: Isosorbide Mononitrate ER TAB* 60 MG PO SCH (10:03)
[2017-05-17] MEDS: Carvedilol TAB* 3.125 MG PO SCH ×2 (10:04→12:49)
[2017-05-17] MEDS: CMCS:Ranolazine (NF) 500 MG TAB PO SCH (10:04)
[2017-05-17] MEDS: Docusate CAP* 100 MG PO SCH (10:04)
[2017-05-17] MEDS: Magnesium Hydroxide LIQ* 30 ML UDC PO SCH (10:08)
--- NOTE | 2017-05-17 10:16 | PN ---
Progress Note - Progress Note Date of Service: 05/17/17 SOAP: Subjective: Pt is doing well. She had pain overnight in her hips and shoulders and required IV morphine. She is feeling a little better this am. She is doing well with PT. She denies Cp,SOB, F/C or calf pain. Objective: General 66 y/o F NAD lying in bed comfortably RLE- dressing changed, inc no warmth, erythema or discharge, +F/E knee, +DF/PF ankle, calf soft NT, NVI Vital Signs Temp Pulse Resp BP Pulse Ox 98.2 F 79 16 110/67 95 05/17/17 07:31 05/17/17 07:31 05/17/17 10:04 05/17/17 07:31 05/17/17 08:25 Laboratory Results - last 24 hr 05/16/17 05/16/17 05/16/17 04:55 11:46 16:22 Hgb Hct INR (Anticoag Therapy) POC Glucose (mg/dL) 103 H 88 Blood Type Cancelled Antibody Screen Cancelled Crossmatch See Detail 05/16/17 05/17/17 05/17/17 21:22 05:20 05:20 Hgb 9.3 L Hct 26 L INR (Anticoag Therapy) 2.21 H POC Glucose (mg/dL) 94 Blood Type Antibody Screen Crossmatch 05/17/17 08:27 Hgb Hct INR (Anticoag Therapy) POC Glucose (mg/dL) 83 Blood Type Antibody Screen Crossmatch Assessment: 66 yo F pod 3 s/p RTHA Plan: wbat - post hip precautions pt/ot hold coumadin tonight cont coumadin for dvt prophylaxis, plavix for stents, colace for constipation and oxycodone and oxycontin for pain plan d/c to [facility] in [place] today
[2017-05-17] MEDS ORDERED: oxyCODONE SR TAB(*) 10 MG TAB.SR PO ONE (12:00)
[2017-05-17 12:25] VITALS: BP 135/52
[2017-05-17] MEDS: Insulin GLARGINE(*) 1 UNITS UNIT SUBCUT SCH (12:50)
--- NOTE | 2017-05-18 00:13 | DS ---
DISCHARGE SUMMARY: DATE OF ADMISSION: 05/14/17 DATE OF DISCHARGE: 05/17/17 PROVIDER: Cait Heller MD * (DICTATED BY THERESE SIMMONS) ADMITTING DIAGNOSIS: Status post right total hip arthroplasty for treatment of severe right hip osteoarthritis. SECONDARY DIAGNOSES: 1. Diabetes. 2. Hypertension. 3. Prior myocardial infarction with 6 stents. 4. High cholesterol. 5. Hemochromatosis. 6. Sleep apnea. CONSULTATIONS: Physical Therapy, Occupational Therapy, Medicine. HISTORY OF PRESENT ILLNESS: Ms. Smith is a 66-year-old female with complaints of right hip pain due to severe end-stage osteoarthritis. She failed conservative measures, therefore elected to undergo a right total hip arthroplasty with Dr. Heller on 05/14/17. HOSPITAL COURSE: The patient was admitted to [facility] on 05/14/17. She underwent a right total hip arthroplasty. Post-operatively, she recovered on the short- stay surgical unit. By postop day 1, the Pires was removed. She was able to urinate on her own. She was advanced to a regular diet without difficulty and her pain was controlled with p.o. Percocet. She was restarted on home medications. Labs and vitals remained stable. She was able to weight bear as tolerated on the right lower extremity. She advanced appropriately with physical therapy and occupational therapy. DVT prophylaxis was managed with Lovenox and Coumadin until she reached a therapeutic INR. By postop day 3, she was orthopedically and medically stable for discharge to [facility] for acute rehab. PHYSICAL EXAMINATION: General: A 66-year-old well-developed, well-nourished female, in no acute distress. Alert and oriented x3 with appropriate mood and affect. Right lower extremity: The dressing was changed. The incision is healing well with no warmth, erythema or signs of infection. Able to flex and extend the knee. Positive plantar flexion and dorsiflexion of the ankle. Calves soft and nontender. Posterior DP pulses. Sensation is intact to light touch distally. DISCHARGE CONDITION: Stable. DISCHARGE MEDICATIONS: Home medications continued on discharge to include: 1. Gabapentin 300 mg, 600 mg by mouth 3 times a day. 2. Flexeril 10 mg 1 by mouth 3 times a day. 3. Aspirin 81 mg by mouth in the morning. The patient should discontinue this while on the Coumadin. 4. Zolpidem (Ambien) 10 mg 1 by mouth at bedtime. 5. Humalog 1 unit-0.01 mL per vial 400 units 3 times a day. 6. Lantus 100 units per mL 90 units subcu twice a day. 7. Plavix 75 mg 1 by mouth in the morning. 8. Isosorbide mononitrate 60 mg by mouth every morning. 9. Lasix 20 mg, 40 mg by mouth daily. 10. Fenofibrate 54 mg 1 by mouth at bedtime. 11. Atorvastatin 40 mg 1 by mouth in the evening. 12. Ranexa 1000 mg 1 by mouth twice a day. 13. Coreg 3.125 mg by mouth 3 times a day. 14. Amlodipine 5 mg, 10 mg by mouth in the morning. 14. Ibuprofen 200 mg, 600 mg by mouth every 6 hours as needed. 15. Valsartan 40 mg 1 by mouth in the morning. 16. Glipizide 10 mg 1 by mouth twice a day. 17. Isosorbide mononitrate ER 30 mg at bedtime. 18. Oxycodone 50 mg 1 to 2 by mouth every 6 hours as needed for pain with an MDD of 6. New medications on discharge to include: 1. Colace 100 mg 1 by mouth twice a day. 2. Warfarin 2 mg 1 to 5 tablets by mouth daily as directed by the doctor. 3. Oxycodone SR 10 mg tablets 1 by mouth twice a day x5 days for pain. DISCHARGE INSTRUCTIONS: The patient is weightbearing as tolerated on the right lower extremity. It is okay for her to shower. No bathing, swimming, or submerging in the water. She should use gentle soap and pat dry. Cover with gauze and tape. She should call the orthopedic office with increased drainage, redness, increased pain or fever. She should go to the ER with shortness of breath or chest pain. Diet, regular diet. Increase fluids and fiber. Continue to use a stool softener and call if no bowel movement within 48 hours. Continue posterior hip precautions. Do not cross the legs or bend the leg greater than 90 degrees. Continue PT and OT. Nurses to do wound checks and blood draws. Continue Coumadin for DVT prophylaxis x1 month, dose on Thursday, hold, redraw on 11/20/17. Continue Plavix. Do not take the aspirin. We will restart the aspirin in 1 month when the Coumadin is discontinued. This was explained to the patient. Pain control with oxycodone 15 mg 1 to 2 tablets every 6 hours as needed for pain. Oxycodone twice a day x5 days. Continue Colace for constipation. She will require antibiotics prior to any future dental work. She will follow up with Dr. Heller 10 to 14 days postop. THERESE SIMMONS [id number]/[facility] #: [id number] [facility]ALSy
== END 2017-05-17 13:35 | DRG 470 ==
LOC: AA 06:50 → SSU 13:14
PROVIDERS: ADMIT Orthopaedic Surgery Adult Reconstructive Orthopaedic Surgery; ATTEND Hospitalist
PROC: 0SR904A Replacement of Right Hip Joint with Ceramic on Polyethylene Synthetic Substitute, Uncemented, Open Approach (ICD-10-PCS; 2017-05-14)
PROC: 30233N1 Transfusion of Nonautologous Red Blood Cells into Peripheral Vein, Percutaneous Approach (ICD-10-PCS; principal; 2017-05-14 08:00)
DX: M16.11 Unilateral primary osteoarthritis, right hip (principal); E11.40 Type 2 diabetes mellitus with diabetic neuropathy, unspecified; I10 Essential (primary) hypertension; E83.119 Hemochromatosis, unspecified; I25.10 Atherosclerotic heart disease of native coronary artery without angina pectoris; G47.33 Obstructive sleep apnea (adult) (pediatric); D64.9 Anemia, unspecified; E78.5 Hyperlipidemia, unspecified; M25.751 Osteophyte, right hip; I25.2 Old myocardial infarction; Z95.5 Presence of coronary angioplasty implant and graft; Z79.82 Long term (current) use of aspirin; Z79.4 Long term (current) use of insulin; Z79.02 Long term (current) use of antithrombotics/antiplatelets; Z79.01 Long term (current) use of anticoagulants; Z90.710 Acquired absence of both cervix and uterus; Z88.8 Allergy status to other drugs, medicaments and biological substances; Z88.6 Allergy status to analgesic agent; Z82.49 Family history of ischemic heart disease and other diseases of the circulatory system; Z83.3 Family history of diabetes mellitus; Z82.3 Family history of stroke; Z82.0 Family history of epilepsy and other diseases of the nervous system; Z23 Encounter for immunization
CPT/HCPCS: 36415; 80048; 85014; 85018; 85025; 85610; 88304; 88311; 90732; 94660; A9270-GY; C1713; C1776; J0690; J1100; J1170; J1650; J1885; J2250; J2270; J2405; J2704; J3010

== ENCOUNTER 2017-11-05 06:24 | Day surgery (SDC) | payer MEDICARE ==
--- NOTE | 2017-10-26 10:59 | HP ---
HISTORY AND PHYSICAL: DATE OF SURGERY: 11/05/17 DATE OF OFFICE VISIT: 10/09/17 SURGEON: Cait Heller MD * (DICTATED BY THERESE DURON) PROCEDURE: Right carpal tunnel release. CHIEF COMPLAINT: Right wrist pain. HISTORY OF PRESENT ILLNESS: Ms. Smith is a 67-year-old female with continued complaints of right wrist pain and numbness and tingling in the first 3 fingers of her right hand. The symptoms are worse at night, waking her up from sleep. She has failed conservative management and EMG studies do confirm bilateral carpal tunnel syndrome and she has elected to proceed with right carpal tunnel release. PAST MEDICAL HISTORY: Diabetes, hypertension, prior SC, high cholesterol, hemochromatosis and sleep apnea. PAST SURGICAL HISTORY: Right total hip arthroplasty, 6 cardiac stents, tonsillectomy, adenoidectomy and hysterectomy. CURRENT MEDICATIONS: 1. Oxycodone 10 mg twice a day. 2. Valsartan 40 mg daily. 3. Carvedilol 3.125 three times a day. 4. Plavix 75 mg daily. 5. Amlodipine 10 mg daily. 6. Flexeril 10 mg daily. 7. Aldactone 25 mg twice a day. 8. Fenofibrate 54 mg q.h.s. 9. Ranexa 1000 mg twice a day. 10. Aspirin 81 mg daily. 11. Gabapentin 600 mg 3 times a day. 12. Atorvastatin calcium 40 mg daily. 13. Zolpidem 10 mg daily. 14. NovoLog. 15. Lantus. ALLERGIES: WELLBUTRIN and TYLENOL. FAMILY HISTORY: Heart disease, hypertension, diabetes, stroke, and Alzheimer's disease. SOCIAL HISTORY: She is a 67-year-old female. She lives with her daughter. She does not smoke, use drugs or alcohol. REVIEW OF SYSTEMS: A complete 14-point review of systems was reviewed with the patient; it was positive for diabetes, seizures, hemochromatosis, and occasional exertional chest pain. PHYSICAL EXAMINATION GENERAL: She is well developed, well nourished, in no acute distress. VITAL SIGNS: She stands 5 feet 2 inches tall, weighs 190 pounds. Blood pressure is 136/60, heart rate is 72. HEENT: Normocephalic, atraumatic. NECK: Supple. No palpable lymph nodes. PULMONARY: Lungs are clear to auscultation bilaterally. CARDIO: Regular rate and rhythm. Strong S1, S2. ABDOMEN: Soft, nontender, nondistended. NEUROLOGICAL: She is alert and oriented x3. Cranial nerves II through XII are intact. MUSCULOSKELETAL: Right upper extremity, the skin is intact. There are no open wounds or abrasions. She has a positive Tinel's at the right wrist. She has slightly diminished sensation over the first 3 fingers of the right hand, 5/5 right handgrip, 2+ distal radial pulses. ASSESSMENT AND PLAN: Ms. Smith is a 67-year-old female with complaints of right wrist pain, numbness and tingling of the first 3 fingers of the right hand. EMG has confirmed carpal tunnel syndrome and she has elected to proceeded with a right carpal tunnel release, which is scheduled for 11/05/[address] Heller discussed the risks and benefits of the surgery at today's visit and all of her questions were answered. She will follow up with Dr. Heller in 10 to 14 days after the surgery. THERESE DURON [id number]/CPS #: [id number] MYRTLE
[~2017-11-05 06:24] MED LIST changes: -Famotidine IV* 10 MG/ML 2 ML (20 mg) IV ONE; +Famotidine TAB* 20 MG PO ONE; -Metoclopramide TAB* 10 MG PO ONE
[2017-11-05] MEDS ORDERED: Famotidine TAB* 20 MG ONE (06:37)
[2017-11-05] MEDS ORDERED: ceFAZolin 2 GM PREMIX (*) 2 GM/50 ML BAG IVPB ONE (06:38)
[2017-11-05] MEDS ORDERED: Midazolam* 1 MG/ML 5 ML VIAL (5 MG) ONE (07:03)
[2017-11-05] MEDS ORDERED: fentaNYL* 50 MCG/ML 2 ML VIAL (100 MCG VIAL) ONE (07:03)
[2017-11-05] MEDS ORDERED: Ondansetron INJ* 2 MG/ML VIAL ONE (07:03)
[2017-11-05] MEDS ORDERED: Dexamethasone IV* 4 MG/ML 1 ML (4 MG) ONE (07:03)
[2017-11-05] MEDS ORDERED: Propofol* 10 MG/ML 20 ML BTL IV PUSH ONE (07:03)
[2017-11-05] MEDS ORDERED: Lidocaine 2% PF * 5 ML VIAL ONE (07:03)
[2017-11-05] MEDS ORDERED: Ketorolac INJ* 30 MG/ML 1 ML VIAL ONE (07:03)
[2017-11-05] MEDS ORDERED: Bupivacaine 0.25% SDV* 30 ML ONE (07:31)
[2017-11-05] MEDS ORDERED: Lidocaine 1% INJ* 10 MG/ML 30 ML SDV ONE (07:39)
[2017-11-05] MEDS ORDERED: EPHEDrine (Pressors)* 50 MG/ML VIAL ONE (07:43)
[2017-11-05] MEDS ORDERED: Ondansetron ODT TAB* 4 MG PO PRN (08:26)
[2017-11-05] MEDS ORDERED: Naloxone* 0.4 MG/ML 1 ML VIAL IV PRN (08:26)
[2017-11-05] MEDS ORDERED: fentaNYL* 50 MCG/ML 2 ML VIAL (100 MCG VIAL) IV PRN (08:26)
[2017-11-05] MEDS ORDERED: oxyCODONE TAB* 5 MG TAB PO PRN (08:26)
[2017-11-05 09:37] VITALS: BP 128/57
--- NOTE | 2017-11-06 09:18 | OP ---
DATE OF OPERATION: 11/05/17 - [facility] DATE OF : 54 SURGEON: Cait Heller M.D. INSIDE SALES: THERESE Ryan. Ms. Mckay did help throughout the procedure with preparation of the arm retraction and wound retraction. ANESTHESIOLOGIST: Dr. Nichols. ANESTHESIA: Local MAC with 0.25% Marcaine. PRE-OP DIAGNOSIS: Right wrist carpal tunnel syndrome or median nerve compression at the wrist. POST-OP DIAGNOSIS: Right wrist carpal tunnel syndrome or median nerve compression at the wrist. OPERATIVE PROCEDURE: Open right carpal tunnel release at the wrist. TOURNIQUET TIME: Six minutes. COMPLICATIONS: None. EBL: Less than 25 mL. SPECIMEN: None. BRIEF HISTORY/INDICATIONS: Ms. Smith is a 67-year-old female who developed right wrist carpal tunnel syndrome with numbness and weakness with pinch strength. She has some thenar wasting. EMG nerve conduction study did confirm carpal tunnel syndrome. We discussed the risks and benefits of an open carpal tunnel release and she wished to proceed due to the failure of conservative treatment. INTRAOPERATIVE FINDINGS: Intraoperatively, the patient had no mass or abnormal appearance of the nerve or tendon. DESCRIPTION OF PROCEDURE: Ms. Smith was identified in the preanesthesia unit. Her right upper extremity was marked as the correct operative side. Informed consent was signed and placed in the chart. The patient was taken to the operating room and placed under anesthesia. A tourniquet was placed on the right arm. Right upper extremity was prepped and draped in the usual sterile fashion. Preop time-out was made to correctly identify the patient's side and site. Appropriate perioperative antibiotics were given within 1 hour of incision. A 10-mL of 0.5% Marcaine was used for local anesthesia near the carpal tunnel. Tourniquet was inflated and total tourniquet time for this procedure was 6 minutes. A 2-cm incision was made in the thenar crease. Tenotomies were used to dissect down to the becker fascia. A 10 blade was used to incise the becker fascia in line with these skin incisions. After appropriate placement of retractors, the transverse becker ligament was easily visualized. 10 blade was then used to carefully incise the transverse carpal ligament in line with the skin incision. Tenotomies were used to extend this release distally and proximally until there was no further compression of the nerves and tendon. Median nerves and some tendons were clearly visualized. There was no masses or abnormal appearance noted. The wound was copiously irrigated with sterile saline. Tourniquet was turned down at 6 minutes. A vertical mattress interrupted 4-0 nylon sutures were used to close the incision. Sterile Xeroform , 4x4s, and Webril were used to cover the incision. A well-padded volar plaster splint was applied. The patient's anesthesia was reversed without difficulty. She was taken to the PACU in stable condition. Intended weightbearing will be nonweightbearing, no heavy lifting with the right upper extremity. She will follow up in clinic in one week time for a dressing change. [id number]/CPS #: [id number] MTDD
== END 2017-11-05 09:39 | disposition home or self-care (01) ==
LOC: OR 06:24
PROVIDERS: ATTEND Orthopaedic Surgery Adult Reconstructive Orthopaedic Surgery
DX: G56.01 Carpal tunnel syndrome, right upper limb (principal); E11.9 Type 2 diabetes mellitus without complications; Z79.4 Long term (current) use of insulin; I10 Essential (primary) hypertension; I25.2 Old myocardial infarction; E78.00 Pure hypercholesterolemia, unspecified; E83.119 Hemochromatosis, unspecified; G47.30 Sleep apnea, unspecified; Z95.5 Presence of coronary angioplasty implant and graft; Z79.01 Long term (current) use of anticoagulants
CPT/HCPCS: A9270-GY; J0690; J1100; J1885; J2250; J2405; J2704; J3010

== ENCOUNTER 2018-08-10 06:39 | Inpatient (IN) | payer MEDICARE ==
--- NOTE | 2018-07-29 15:03 | HP ---
HISTORY AND PHYSICAL: DATE OF ADMISSION/SURGERY: 08/10/18 DATE OF OFFICE VISIT: 07/28/18 SURGEON: Cait Heller MD.* (DICTATED BY THERESE DURON) PROCEDURE: Left total hip arthroplasty. CHIEF COMPLAINT: Left hip pain. HISTORY OF PRESENT ILLNESS: Ms. Smith is a 68-year-old female with continued complaints of left hip pain. She has failed conservative treatment and elected to proceed with the left total hip arthroplasty. PAST MEDICAL HISTORY: Hypertension, diabetes, high cholesterol, coronary artery disease, prior AR, 6 heart stents, hemochromatosis, and sleep apnea. PAST SURGICAL HISTORY: Stent placements, hysterectomy, tonsillectomy, adenoidectomy, right total hip arthroplasty, and right carpal tunnel release. CURRENT MEDICATIONS: 1. Oxycodone 10 mg every 4 hours. 2. Amlodipine 10 mg daily. 3. Tizanidine 4 mg. 4. Lantus 30 units in the morning, 30 at night. 5. Carvedilol 6.25 mg twice a day. 6. Fenofibrate 54 mg daily. 7. Ranexa 1000 mg twice a day. 8. Plavix 75 mg daily. 9. Aspirin 81 mg daily. 10. Imdur 90 mg a day. 11. Gabapentin 600 mg 3 times a day. 12. Lipitor 40 mg q.h.s. 13. Ambien 10 mg q.h.s. 14. Spironolactone 50 mg daily. 15. Furosemide 20 mg daily. 16. Losartan 25 mg daily. ALLERGIES: WELLBUTRIN, TYLENOL, and IBUPROFEN. FAMILY HISTORY: Hemochromatosis, diabetes, and coronary artery disease. SOCIAL HISTORY: She is a 68-year-old female. Lives with her daughter. She does not smoke or use drugs or alcohol. REVIEW OF SYSTEMS: A complete 14-point review of systems was reviewed with the patient, it was positive for diabetes and a history of seizure in 1995. She denies history of DVT, PE, hepatitis, HIV, or anesthesia problems. PHYSICAL EXAMINATION GENERAL: She is well developed, well nourished in no acute distress. VITAL SIGNS: She stands 62 inches tall, weighs 195 pounds. Blood pressure is 158/68, heart rate 78. HEENT: Normocephalic, atraumatic. NECK: Supple. No palpable lymph nodes. PULMONARY: The lungs are clear to auscultation bilaterally. CARDIO: Regular rate and rhythm. Strong S1 and S2. ABDOMEN: Soft, nontender, nondistended. NEUROLOGIC: She is alert and oriented x3. MUSCULOSKELETAL: Left lower extremity: The skin is intact. There are no open wounds or abrasions. She walks with an antalgic type gait, favoring the left leg. She has decreased internal and external rotation of the left hip. She has 2+ dorsalis pedis pulse. Intact sensation to lower extremity. Muscular group strengths are intact at 5/5. ASSESSMENT AND PLAN: Ms. Smith is a 68-year-old female with continued complaints of left hip pain. She has failed conservative treatment and elected to proceed with a left total hip arthroplasty. The surgery is scheduled for 08/10/[address] Heller discussed the risks and benefits of the surgery at today's visit and all of her questions were answered. She will follow with Dr. Heller 2 weeks after the surgery. THERESE DURON [id number]/CPS #: [id number]
[~2018-08-10 06:39] MED LIST changes: -Buffered Lidocaine 0.9% SYRIN* 5 ML/SYR SYRINGE INTRADERM ONE; +Buffered Lidocaine 1% SYRIN* 1 ML/SYRINGE INTRADERM ONE; -Famotidine TAB* 20 MG PO ONE; +Gabapentin CAP(*) 300 MG PO ONE; +Lactated Ringers 1000 ML Bag* 1,000 ML IV SCH
--- OUTSIDE RECORDS SUMMARY | 2018-08-10 06:42 | XMS REPORT | Continuity of Care Document ---
:1950 External Reference #:[id number] Author Name Zahra Gonsalves Care Team Providers Name Role Phone Jason Mercado MD Primary Care Physician Unavailable Payers Type Date Identification Numbers Payment Provider Subscriber Policy Number: [id number] [facility] Bethany Nunezerty PayID: [id number] [address] [address] Attn: [place] [address] Policy Number: [id number] [facility] Ppo Bethany Nunezerty PayID: [id number] [address] [address] [place] [address] Advance Directives Description No Information Available Problems Date Description Provider Status Onset: 03/16/2017 Localized, primary osteoarthritis of Karly Heller M.D. Active pelvic region and thigh Onset: 03/16/2017 Arthralgia of the pelvic region and thigh Cait Heller M.D. Active Onset: 09/11/2017 Carpal tunnel syndrome of right wrist Cait Heller M.D. Active Onset: 09/11/2017 Carpal tunnel syndrome of left wrist Cait Heller M.D. Active Onset: 09/11/2017 Acquired trigger finger Cait Heller M.D. Active Onset: 11/11/2017 Localized, primary osteoarthritis of the Cait Heller M.D. Active shoulder region Onset: 11/11/2017 Disorder of shoulder Cait Heller M.D. Active Onset: 11/11/2017 Sprain of shoulder and upper arm Cait Heller M.D. Active Family History Date Family Member(s) Problem(s) Comments General Diabetes General Heart Disease General Hypertension General Stroke General Hemochromatosis Father Heart Disease Father Diabetes Type II Father Hemochromatosis with liver complications Father Hypertension Father open heart surgery Father paternal grandfather-diabetes,heart disease and hemochromatosis Father paternal grandmother-heart disease,stroke Mother Heart Disease Mother Hypertension Mother Osteoarthritis Mother spinal stenosis Mother maternal grandmother-heart and liver disease.aLzeheimers Mother maternal grandfather-diabetes and HTN Social History Type Date Description Comments Sex Unknown Marital Status Lives With Daughter Occupation Retired ETOH Use Denies alcohol use Tobacco Use Start: Unknown Patient has never smoked Recreational Drug Use Denies Drug Use Smoking Status Reviewed: 06/14/18 Patient has never smoked Exercise Type/Frequency Exercises regularly JOINED [employer] Allergies, Adverse Reactions, Alerts Date Description Reaction Status Severity Comments 02/23/2017 Wellbutrin Active seizures 03/16/2017 Tylenol Active 12/21/2017 Ibuprofen Active Severe kidneys Medications Medication Date Status Form Strength Qnty SIG Indications Ordering Provider Dayron 12/15 Active Gel 1% 100gm apply 2 grams to affected Arron, area 2-3 M.D. times daily for pain Tramadol HCL 11/06 Active Tablets 50mg 14tab 1 tablet by s mouth every 8 Arron, hours as M.D. needed pain Oxycodone HCL Active Tablets 10mg 1 po every 4 [place], /0000 hrs terrance Gomez MD Amlodipine Active Tablets 10mg 1 po daily Davidsera Besylate /0000 , MD You Cyclobenzaprine Active Tablets 10mg Take One Unknown HCL /0000 Tablet By Mouth Three Times A Day as Needed Lantus Solostar Active Solution 100Unit/M Inject 40 Unknown /0000 Pen-Injec L Units Under t The Skin In A.M and 40 Uints at hs Carvedilol Active Tablets 3.125mg Take One Unknown /0000 Tablet By Mouth Three Times A Day Fenofibrate Active Tablets 54mg Take One Unknown /0000 Tablet By Mouth Every Day Ranexa Active Tablets 1000mg Take One Unknown /0000 ER 12HR Tablet By Mouth Twice A Day Plavix Active Tablets 75mg 1 by mouth Unknown /0000 every day Aspirin Active Tablets 81mg 1 by mouth Unknown /0000 DR every day Imdur Active Tablets 90mg 1 by mouth Unknown /0000 ER 24HR every day Gabapentin Active Tablets 600-600-6 Unknown /0000 00 Lipitor Active Tablets 40mg 1 by mouth at Unknown /0000 bedtime Ambien Active Tablets 10mg take 1 tab as Unknown /0000 needed for insomnia Valsartan Active Tablets 40mg Take One Unknown /0000 Tablet By Mouth Every Day Spironolactone Active Tablets 25mg Take One Unknown /0000 Tablet By Mouth Every Day Furosemide Active Tablets 20mg 1 by mouth Unknown /0000 every day Ibuprofen 07/03 Hx Tablets 800mg 60tab 1 tab by s mouth every 8 Arron, - hours as M.D. 12/21 needed with food Oxycontin 05/17 Hx Tab ER 10mg 10tab take 1 by 12H s mouth two Arron, - Abuse-Det times a day x M.D. 05/28 Warfarin Sodium 05/16 Hx Tablets 2mg 60tab take 1-5 tabs s by mouth Arron, - daily as M.D. 12/21 directed by doctor Colgeorge 05/16 Hx Capsules 100mg 90cap 1 tab by s mouth three Arron, - times a day M.D. 12/21 as needed constipation Valsartan Hx Tablets 40mg 1 po daily Jess, /0000 Antionette Gomez MD 03/15 Spironolactone Hx Tablets 25mg Jess, Antionette Gomez MD 02/22 Novolog Flexpen Hx Solution 100Unit/M Inject 4O Unknown /0000 Pen-Injec L Units 40 - t Units And 30 03/15 Units Directed Zolpidem Hx Tablets 10mg Take One Unknown Tartrate /0000 Tablet By - Mouth prn 03/15 Atorvastatin Hx Tablets 40mg Take One Unknown Calcium /0000 Tablet By - Mouth Every Clopidogrel Hx Tablets 75mg Take One Unknown Bisulfate /0000 Tablet By - Mouth Every Glipizide Hx Tablets 10mg Take One Unknown /0000 Tablet By - Mouth Twice A Humalog Hx 45-45-30 Unknown /0000 - 12/21 Lasix Hx Tablets 40mg 1 by mouth as Unknown /0000 needed - 12/21 Medications Administered in Office Medication Date Status Form Strength Qnty SIG Indications Ordering Provider [place] Administered Injection Cait 40MG 018 Vargas Heller Immunizations Description No Information Available Vital Signs Date Vital Result Comment 06/14/2018 3:07pm Height 62 inches 5'2" Weight 195.00 lb Heart Rate 64 /min Respiratory Rate 18 /min Pain Level 9 BMI (Body Mass Index) 35.7 kg/m2 02/03/2018 10:17am Height 62 inches 5'2" Weight 195.00 lb Heart Rate 58 /min BP Systolic Sitting 104 mmHg BP Diastolic Sitting 60 mmHg Respiratory Rate 16 /min Pain Level 2 BMI (Body Mass Index) 35.7 kg/m2 12/21/2017 1:50pm Height 62 inches 5'2" Weight 190.00 lb BP Systolic Sitting 130 mmHg BP Diastolic Sitting 70 mmHg Respiratory Rate 16 /min Body Temperature 97.9 F Pain Level 6 BMI (Body Mass Index) 34.7 kg/m2 11/16/2017 12:58pm Height 62 inches 5'2" Weight 190.00 lb Heart Rate 56 /min BP Systolic 142 mmHg BP Diastolic 66 mmHg Body Temperature 97.6 F Pain Level 3 BMI (Body Mass Index) 34.7 kg/m2 11/11/2017 8:12am Height 62 inches 5'2" Heart Rate 60 /min BP Systolic 122 mmHg BP Diastolic 60 mmHg Respiratory Rate 20 /min Body Temperature 97.7 F Pain Level 0 10/09/2017 8:24am Height 62 inches 5'2" Heart Rate 72 /min BP Systolic 136 mmHg BP Diastolic 60 mmHg Respiratory Rate 16 /min Body Temperature 98.2 F Pain Level 2 09/11/2017 9:47am Height 62 inches 5'2" Weight 190.00 lb Heart Rate 83 /min Respiratory Rate 16 /min Body Temperature 98.1 F Pain Level 4 BMI (Body Mass Index) 34.7 kg/m2 07/08/2017 9:16am Height 62 inches 5'2" Weight 190.00 lb per pt Heart Rate 78 /min reg BP Systolic Sitting 140 mmHg Rue, lg cuff BP Diastolic Sitting 80 mmHg Rue, lg cuff Respiratory Rate 16 /min Pain Level 4 right hip BMI (Body Mass Index) 34.7 kg/m2 05/29/2017 10:21am Height 62 inches 5'2" Weight 190.00 lb BP Systolic 108 mmHg BP Diastolic 56 mmHg Body Temperature 98.3 F Pain Level 4 BMI (Body Mass Index) 34.7 kg/m2 05/04/2017 9:23am Height 62 inches 5'2" Weight 197.00 lb Heart Rate 72 /min BP Systolic 129 mmHg BP Diastolic 60 mmHg BMI (Body Mass Index) 36.0 kg/m2 03/16/2017 2:55pm Height 62 inches 5'2" Weight 202.00 lb Heart Rate 79 /min BP Systolic 129 mmHg BP Diastolic 66 mmHg Body Temperature 98.8 F BMI (Body Mass Index) 36.9 kg/m2 02/23/2017 11:24am Height 62.75 inches 5'2.75" Weight 202.00 lb Heart Rate 72 /min BP Systolic Sitting 132 mmHg BP Diastolic Sitting 66 mmHg Respiratory Rate 24 /min No respiratory difficulties Pain Level 3 BMI (Body Mass Index) 36.1 kg/m2 Results Test Date Facility Test Result H/L Range Note Laboratory test 11/05/2017 [facility] Point of Care 131 mg/dL High 70-100 [address] [place] [address] [phone] Laboratory test 11/05/2017 [facility] Point of Care 140 mg/dL High 70-100 [address] [place] [address] [phone] Comp Metabolic 05/04/2017 [facility] Sodium 140 mmol/L N 133- [address] [place] [address] [phone] Potassium 4.1 mmol/L N 3.5-5.0 Chloride 105 mmol/L N 101-111 Co2 Carbon Dioxide 28 mmol/L N 22-32 Anion Gap 7 mmol/L N 2-11 Glucose 71 mg/dL N 70-100 Blood Urea Nitrogen 16 mg/dL N 6-24 Creatinine 0.96 mg/dL High 0.51-0.95 BUN/Creatinine Ratio 16.7 N 8-20 Calcium 9.8 mg/dL N 8.6-10.3 Total Protein 7.7 g/dL N 6.4-8.9 Albumin 4.3 g/dL N 3.2-5.2 Globulin 3.4 g/dL N 2-4 Albumin/Globulin Ratio 1.3 N 1-3 Total Bilirubin 0.40 mg/dL N 0.2-1.0 Alkaline Phosphatase 78 U/L N 34-104 Alt 16 U/L N 7-52 Ast 15 U/L N 13-39 Egfr Non- 58.5 N >60 Egfr 75.3 N >60 3 Type & Screen 05/04/2017 [facility] Patient Blood Type O Negative [address] [place], [place] [id number] [phone] Antibody Screen NEGATIVE Urine Culture And 05/04/2017 [facility] Urine Culture SEE RESULT [address] [place], [place] [id number] [phone] Laboratory test 05/04/2017 [facility] Packed Cells SEE RESULTS [address] [place]O <[place] [address] NOTE> [phone] Laboratory test 05/04/2017 [facility] Partial 30.2 seconds N 26.0- finding [address] Thrombo Time 36.3 [place] [address] PTT [phone] Inr/Protime 05/04/2017 [facility] Inr 1.02 N 0.89- [address] 1.11 [place] [address] [phone] CBC No Diff 05/04/2017 [facility] White Blood 6.8 10^3/uL N 3.5-[address] Count 0.8 [place] [address] [phone] Red Blood Count 3.96 10^6/uL Low 4.0-5.4 Hemoglobin 12.6 g/dL N 12.0-16.0 Hematocrit 36 % N 35-47 Mean Corpuscular Volume 92 fL N 80-97 Mean Corpuscular Hemoglobin 32 pg High 27-31 Mean Corpuscular HGB Conc 35 g/dL N 31-36 Red Cell Distribution Width 13 % N 10.5-15 Platelet Count 249 10^3/uL N 150-450 Mean Platelet Volume 10 um3 N 7.4-10.4 Urinalysis Profile 05/04/2017 [facility] Urine Color Yellow N [address] [place] [address] [phone] Urine Appearance Clear N Urine Specific Gay 1.012 N 1.010-1.030 Urine pH 5.0 N 5-9 Urine Urobilinogen Negative N Negative Urine Ketones Negative N Negative Urine Protein Negative N Negative Urine Leukocytes 2+ Abnormal Negative Urine Blood Negative N Negative Urine Nitrite Negative N Negative Urine Bilirubin Negative N Negative Urine Glucose Negative N Negative Urine White Blood Cell 3+(>20/hpf) Abnormal Absent Urine Red Blood Cell Absent N Absent Urine Bacteria Absent N Absent Urine Squamous Epithelial Cell Present Abnormal Absent Urine Hyaline Casts Present Abnormal Absent 1 Partridge Farmer: [id number] 2 Partridge Farmer: [id number] 3 Because ethnic data is not always readily available, this report includes an eGFR for both -Americans and non- Americans. The National Kidney Disease Education Program (NKDEP) does not endorse the use of the MDRD equation for patients that are not between the ages of 18 and 70, are , have extremes of body size, muscle mass, or nutritional status, or are non- or non-. According to the National Kidney Foundation, irrespective of diagnosis, the stage of the disease is based on the level of kidney function: Stage Description GFR(mL/min/1.73 m(2)) 1 Kidney damage with normal or decreased GFR 90 2 Kidney damage with mild decrease in GFR 60-89 3 Moderate decrease in GFR 30-59 4 Severe decrease in GFR 15-29 5 Kidney failure <15 (or dialysis) 4 SEE RESULT BELOW Name: BETHANY EDWARDS : [address]: Cait Heller MD Acct: [id number] Unit: [id number] AGE: 66 Location: [facility] Re05/04/17 SEX: F Status: REG REF SPEC: [id number] JAZMINE: 05/04/17 [facility] DR: Cait Heller MD REQ: [id number] RECD: 05/04/17 STATUS: IVELISSE FELDER DR: Jason Mercado MD _ SOURCE: URINE SPDESC: ORDERED: Urine Culture QUERIES: Urine Source: Clean Catch Procedure Result Reported Site Urine Culture Final 05/05/17- 1218 ML No Growth (<1,000 CFU/mL) * ML - MAIN LAB ([facility]) . END OF REPORT * ML=Testing performed at Main Lab DEPARTMENT OF PATHOLOGY, [address] [place] [address] [place] [address] Frank Monroy M.D. Director [facility] # [id number] 5 SEE RESULTS BELOW [id number] ON TRANSFUSED 05/16/17 1611 Procedures Date Code Description Status 11/11/2017 16297 Inject/Drain Joint/Bursa Major W/O US Completed 11/05/2017 85191 Carpal Tunnel Release Completed 11/05/2017 06102 Carpal Tunnel Release Completed 10/07/2017 78345 Nerve Conduction 07-08 Studies Completed 05/14/2017 20326 THR Total Hip Replacement Completed 05/14/2017 59108 THR Total Hip Replacement Completed 05/04/2017 17793 EKG, Interpretation Only Completed 02/23/2017 20864 Radiologic Exam Hip Unilateral With Pelvis 2-3 Views Completed Encounters Type Date Location Provider Dx Diagnosis Office Visit 06/14/2018 [facility] Carpal tunnel 2:30p Of [place] Kaye syndrome, right upper limb G56.02 Carpal tunnel syndrome, left upper limb M25.532 Pain in left wrist M25.531 Pain in right wrist M25.551 Pain in right hip Z96.641 Presence of right artificial hip joint M25.552 Pain in left hip M16.12 Unilateral primary osteoarthritis, left hip Office Visit 11/16/2017 1:00p [facility] Carpal tunnel Services Of Nika Kaye syndrome, right upper limb G56.02 Carpal tunnel syndrome, left upper limb M25.532 Pain in left wrist Office Visit 11/11/2017 8:00a [facility]01 Carpal tunnel Services Of [place] syndrome, right upper limb M19.011 Primary osteoarthritis, right shoulder G56.02 Carpal tunnel syndrome, left upper limb M75.41 Impingement syndrome of right shoulder M25.511 Pain in right shoulder S46.011A Strain of musc/tend the rotator cuff of right shoulder, init Office Visit 10/09/2017 8:15a [facility] Cait Heller M25.531 Pain in right Of [facility] Mis. wrist G56.01 Carpal tunnel syndrome, right upper limb Office Visit 09/11/2017 8:45a Orthopedic Cait Heller, M65.331 Trigger Services Of [place] Kaye finger, right middle finger M25.532 Pain in left wrist M25.531 Pain in right wrist Z47.1 Aftercare following joint replacement surgery Z96.641 Presence of right artificial hip joint M25.551 Pain in right hip G56.01 Carpal tunnel syndrome, right upper limb G56.02 Carpal tunnel syndrome, left upper limb [facility],pc MD Gianluca unspecified Hospitalists E11.8 Type 2 diabetes mellitus with unspecified complications I10 Essential (primary) hypertension Z96.641 Presence of right artificial hip joint Office Visit 05/15/2017 4:07p [facility] Gilberto Hough, 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 hip M25.551 Pain in right hip Office Visit 02/23/2017 Orthopedic Arron Calabrese M16.11 Unilateral primary 11:00a Services Of Redd Laws MD osteoarthritis, right AT [place] hip M25.551 Pain in right hip Plan of Treatment Future Appointment(s):08/10/2018 11:30 am - Chas Prasad PA-C at [facility]08/10/2018 11:30 am - THERESE Black at [facility]08/10/2018 11:30 am - Cait Heller M.D. at [facility]07/28/2018 11:30 am - Cait Heller M.D. at [facility]06/14/2018 - Cait Heller M.D.G56.01 Carpal tunnel syndrome, right upper limbG56.02 Carpal tunnel syndrome, left upper limbM25.532 Pain in left moyvoJ58.531 Pain in right kfnwgM33.551 Pain in right hipZ96.641 Presence of right artificial hip rtokoT79.552 Pain in left hipM16.12 Unilateral primary osteoarthritis, left hipNew Therapy:Physical TherapyFollow up:Follow up: 7-10 days before surgery
--- OUTSIDE RECORDS SUMMARY | 2018-08-10 06:43 | XMS REPORT | Continuity of Care Document ---
:1950 External Reference #:[id number] Author Name Annamaria Madrigal MD Address [address] [place] [address] Care Team Providers Name Role Phone Jason Mercado MD Care Team Information Base Remover Unavailable Jason Mercado MD Primary Care Physician Unavailable Payers Type Date Identification Numbers Payment Provider Subscriber Effective: Policy Number: [id number] [employer] Eufemia Smith 2016 Expires: 2017 PayID: [id number] [address] [place] [address] Policy Number: [id number] [employer] [facility] Eufemia Smith PayID: [id number] [address] [address] [place] [address] Advance Directives Description No Information Available Problems Date Description Provider Status Onset: 03/12/2011 Coronary arteriosclerosis Tera Davidson MD, PhD Active Onset: 03/12/2011 Benign essential hypertension Tera Davidson MD, PhD Active Onset: 03/12/2011 Angina pectoris Tera Davidson MD, PhD Active Onset: 03/12/2011 Pure hyperglyceridemia Tera Davidson MD, PhD Active Onset: 03/12/2011 Hyperlipidemia You Monahan Active M.D., FACC Onset: 09/15/2012 Strain of rotator cuff capsule Loyd Greene MD Active Onset: 06/14/2014 Localized, primary osteoarthritis Roddy Hudson MD, Active of the shoulder region FACS Onset: 06/14/2014 Full thickness rotator cuff tear Roddy Hudson MD, Active FACS Onset: 08/03/2014 Mixed hyperlipidemia You Monahan Active M.Sumit, FACC Onset: 08/03/2014 Type II diabetes mellitus You Monahan, Active uncontrolled M.DYung, FACC Onset: 08/03/2014 Hereditary hemochromatosis You Monahan Active M.Sumit, FACC Onset: 03/09/2015 Type II diabetes mellitus You Monahan, Active uncontrolled M.DYung, FACC Onset: 03/09/2015 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, Active [place] coronary artery with other M.DYung, FACC forms of angina pectoris Onset: 03/09/2015 Essential hypertension You Monahan Active M.Sumit, FACC Onset: 04/04/2015 Essential hypertension Nichole Marsh, Active MSN, PERIOPERATIVE TECH Onset: 04/19/2015 Carotid artery occlusion Nichole Masrh, Active MSN, PERIOPERATIVE TECH Onset: 10/25/2015 Malaise and fatigue You Monahan Active M.Sumit, FACC Onset: 10/25/2015 Edema You Monahan Active M.DYung, FACC Onset: 03/26/2017 Chest pain You Monahan Active M.DYung, FACC Onset: 03/26/2017 Preoperative cardiovascular You Monahan Active examination M.DYung, FACC Family History Date Family Member(s) Problem(s) Comments Father due to Diabetes () : (age 67 Years) Father due to Liver Disease Social History Type Date Description Comments Sex Unknown Lives With Daughter Diet Patient follows no dietary restrictions Occupation Currently Working RN ADL's/IADL's Independent with all ADL's Tobacco Use Start: Unknown Never Smoked Cigarettes ETOH Use Denies alcohol use Tobacco Use Start: Unknown End: Unknown Patient is a former smoker Smoking Status Reviewed: 07/21/18 Patient is a former smoker Allergies, Adverse Reactions, Alerts Date Description Reaction Status Severity Comments 08/09/2008 Wellbutrin causes seizures Active 07/10/2016 Lisinopril Active 09/17/2017 Tylenol Active 07/21/2018 Ibuprofen Active Medications Medication Date Status Form Strength Qnty SIG Indications Ordering Provider Losartan Potassium 01/14 Active Tablets 25mg 45tab 1 tab by Rohan s mouth every MD Annamaria Cpap 09/17 Active everynight Teresa You M.D., [facility] Nitrostat 03/14 Active Tablets 0.4mg 25tab 1 tab sl Rohan Sub s every 5 min MD Annamaria x3 chest pain Atorvastatin 08/03 Active Tablets 40mg 90tab take one I25.118 Davidenko Calcium s tablet by , You mouth every M., M.D., day [facility] Amlodipine 06/17 Active Tablets 10mg 90tab take one I10 Davidenko Besylate s tablet by , You mouth every M., M.D., day [facility] Fenofibrate 03/12 Active Tablets 54mg 90tab take one E78.1 Davidenko s tablet by , You mouth every M., M.D., day [facility] Aspirin Active Tablets 81mg 1 po qd You HADLEY M.D., [facility] Lantus Solostar Active Solution 150Unit/M 40 u in Unknown L morning 30 U hs Ambien Active Tablets 10mg 30tab 1 tab po s qpm Ranexa Active Tablets 1000mg 180ta take one ER 12HR bs tablet by You mouth twice M., M.D., a day [facility] Lasix Active Tablets 20mg 1 by mouth every day and take another as needed for additional edema Humalog Kwikpen Active Solution 100Unit/M 20 U Before Pen-Injec L Breakfast t Or Lunch For Sugar Over 100 Isosorbide Active Tablets 30mg 1 po tid Unknown Mononitrate ER /0000 ER 24HR Oxycodone HCL Active Tablets 10mg 1 by mouth Unknown /0000 every 4-6 hour as needed pain Plavix Active Tablets 75mg 30tab Take One s Tablet By You Every Vargas Heaton, Day [facility] Spironolactone Active Tablets 50mg 1 by mouth every day Carvedilol Active Tablets 6.25mg take one tablet by mouth twice a day Tizanidine HCL Active Capsules 4mg 1 by mouth 4 times a day as needed mdd 4 Gabapentin Active Tablets 600mg Take 1 PO 4 Times Daily Losartan Potassium 06/20 Hx Tablets 50mg 90tab 1 by mouth s every day , You Heaton M.D., [facility] Lisinopril 06/20 Hx Tablets 20mg 90tab 1 by mouth s every day , You Heaton M.D., [facility] Valsartan 05/12 Hx Tablets 80mg 30tab 1 by mouth Marsh s every day Nichole Mario 06/20 , MSN, /2015 PERIOPERATIVE TECH Benicar HCT 04/30 Hx Tablets 20-12.5mg 30tab 1 by mouth I10 Marsh s every day Nichole Mario , MSN, PERIOPERATIVE TECH Irbesartan 05/01 Hx Tablets 75mg 90tab Take One I10 Rohan s Tablet By MD Annamaria - Mouth Every Furosemide 04/19 Hx Tablets 20mg 150ta 1 by mouth R60.9 Rohan, bs every day MD Annamaria with extra 1/2 tablet as needed edema Medrol (Byron) 04/04 Hx Tablets 4mg 1pack one pack M79.604 Marsh with dosage Nichole titration Fabiano schedule as , MSN, included PERIOPERATIVE TECH Lexapro 03/14 Hx Tablets 10mg 30tab 1 by mouth s every day , You Heaton M.D., [facility] Furosemide 01/08 Hx Tablets 20mg 30tab Take One R60.9 Rohan s Tablet By MD Annamaria - Mouth Every 04/19 Day Needed Isosorbide 12/13 Hx Tablets 60mg 30tab take one Jovani, Mononitrate ER 24HR s tablet by Marlyss - mouth every B., PA 03/26 day Lasix 11/01 Hx Tablets 20mg 90tab 1 by mouth s every day Tera Mi, as needed , PhD Ketorolac 01/24 Hx Tablets 10mg 20tab 1 tab by Jc Tromethamine s mouth every Loyd 6 hours. MD Benoit first dose in or Hydrocodone/Acetam 01/24 Hx Tablets 5-325mg 20tab 1 tab by Jc inophen s mouth every Loyd 4 hours as MD Benoit needed Aldactone 12/29 Hx Tablets 25mg 90tab take 1 s tablet by You mouth every MVargas Barragan, day [facility] Pravachol 03/25 Hx Tablets 40mg 90tab 1 po qd s Antionette Canada MD, PhD 04/19 Pravachol 02/26 Hx Tablets 80mg 90tab 1 po q day s Tera Mi - , PhD 03/25 Effient 09/17 Hx Tablets 10mg 90tab 1 po qd s Tera Mi MD, PhD Imdur 06/25 Hx Tablets 60mg 90tab one po qd ER 24HR s Antionette Canada MD, PhD 12/13 Imdur 06/24 Hx Tablets 30mg 90tab po qd ER 24HR s You M.D., 06/25 [facility] Benicar 03/12 Hx Tablets 20mg 90tab 1 by mouth 401.1 s every other Antionette Canada MD, PhD 10/09 Spironolactone 03/07 Hx Tablets 25mg 90tab /2 by 401.1 Davidson s mouth every shailesh Canada MD, PhD Carvedilol 03/07 Hx Tablets 3.125mg 135ta Take One I25.118 bs Tablet By You Three MVargas Barragan, Times A Day [facility] Potassium Chloride 09/19 Hx Capsules 10Meq 30cap po qd Daviden ER s You M.D., 03/07 [facility] Furosemide 03/22 Hx Tabs 20mg 90tab Take 1 s Tablet By You - Mouth Every MVargas Barragan, 03/[address] [facility] Needed For Edema Atenolol 03/22 Hx Tabs 50mg 90tab Take 1/2 414.01 s Tablet PO , You - bid Vargas Heaton, 03/[address] [facility] Atenolol 03/08 Hx Tablets 25mg 1/2 by Teresa mouth twice You a day Vargas Heaton, [facility] Ranexa 02/25 Hx Tablets 500mg 60tab Take One ER 12HR s Tablet By You Mouth Twice Vargas Heaton, A Day [facility] Ativan 06/06 Hx Tablets 0.5mg 90tab 1 po q8h 311 Marsh, s prn Nichole Mario , MSN, PERIOPERATIVE TECH Lexapro 06/06 Hx Tablets 10mg 45tab 1 and 06/30 311 Davidson, s po qd Tera Mi MD, PhD Lasix 06/06 Hx Tablets 20mg 30tab 1 tab po qd 428.0 Marsh, s prn edema Nichole Mario , MSN, PERIOPERATIVE TECH Benicar HCT 06/06 Hx Tablets 20-12.5mg 30tab Take 1 401.1 s Tablet By , You - Mouth Every MVargas Barragan, 03/[address] [facility] Amlodipine Hx Tablets 10mg 30tab 1 po qd Teresako Besylate / You ruiz M.D., 03/07 [facility] Atenolol Hx Tablets 50mg 90tab 1 1/2 tabs Davidenko / s po qam and You - 1 qpm Vargas Heaton, 03/08 [facility] Folic Acid Hx Tablets 1mg 90tab 1 po qd Davidenko / s You M.D., [facility] Ambien CR Hx Tablets 12.5mg 30tab po qod prn Marsh, ER s Nichole - Fabiano 08/21 , MSN, PERIOPERATIVE TECH Hydrochlorothiazid Hx Tablets 25mg 90tab 1 po qd 401.1 Taniya You ruiz M.D., 06/06 [facility] Aspirin Ec Hx Tablets 325mg 1 po qd Daviden You HADLEY M.D., [facility] Nitroglycerin Hx Tablets 0.4mg 1 tab prn Teresa You Downey M.D., [facility] Lantus Hx Solution 100Unit/M 70 units sq Constantinoen L qpm You M.D., 08/27 [facility] Humalog Hx Solution 100Unit/M 18 units Davidenko /0000 L bid,15 , You units qpm Vargas Heaton, [facility] Lipitor Hx Tablets 20mg 90tab 2 po qd s Trea Mi MD, PhD Metformin HCL ER Hx Tablets 500mg po bid Daviden ER 24HR , You Heaton M.D., [facility] Ambien Hx Tablets 10mg 30tab 1 tab po qd Davidson s prn Tera Mi MD, PhD Isosorbide Hx Tablets 30mg 90tab 1 po qd Davidenko Mononitrate ER 24HR You ruiz M.D., 03/07 [facility] Fish Oil Hx Capsules 1000mg po qd Daviden You M.D., [facility] Potassium Chloride Hx Capsules 10Meq po qd Marsh, ER Nichole - Simonetta 09/19 , MSN, /2010 PERIOPERATIVE TECH Plavix Hx Tabs 75mg 30tab Take 1 Teresa s Tablet By You Every Vargas Heaton, Day FACC Humalog Kwikpen Hx Solution 100Unit/M as directed Unknown /0000 L Lexapro Hx Tablets 10mg 1 po qd 311 Unknown / Ambien Hx Tablets 10mg 1 tab po Unknown qpm/prn Ranexa Hx Tablets 1000mg 1 po bid Unknown / ER 12HR - 06/17 Lexapro Hx Tablets 10mg 90tab 1/2 tab po 311 Davidson, / s qd Tera Mi MD, PhD Atorvastatin Hx Tablets 40mg 30tab 1 po qd Unknown Calcium s - 02/26 Atorvastatin Hx Tablets 40mg 90tab take 1 , Calcium s tablet once nehemiah Canada MD, PhD Oxycodone HCL Hx Tablets 5mg 1 tab po Unknown q4-6h prn Aldactone Hx Tablets 12.5mg 90tab 1 po qd s - 12/29 Lipitor Hx Tablets 40mg 30tab 1 po qd s Coreg Hx Tablets 3.125mg 60tab 1 po bid Unknown s Baclofen Hx Tablets 5mg po bid prn Ibuprofen Hx Tablets 600mg 30tab 1 po q6h Unknown / s prn pain use as first line pain control Benicar HCT Hx Tablets 20-12.5mg 45tab 1 by mouth I10 , / s every other Tera Mi, - shailesh HECTOR, PhD 04/19 I25.10 Cyclobenzaprine HCL Hx Tablets 10mg 30tabs 1 tab by Pompo, mouth every Sg, M.D. night at bedtime as needed Tramadol HCL Hx Tablets 100mg 20tabs 1 po tid Unknown Oxycodone HCL - Hx Capsules 15mg 24caps 1 tab po Unknown 09/17/2017 tid prn Lexapro Hx Tablets 10mg 90tabs po qd 311 Tera Davidson MD, PhD Lasix - Hx Tablets 20mg 1 po qd Unknown 01/08/2015 Lexapro Hx Tablets 5mg 1 by mouth 311 Unknown every day Gabapentin - Hx Capsules 300mg 90caps 2 po tid Unknown 07/21/2018 Benicar - Hx Tablets 20mg 30tabs 1 tab by I10 Marsh, 05/01/2015 mouth every Nichole day Fabiano, MSN, PERIOPERATIVE TECH Benicar Hx Tablets 20mg 1 by mouth Unknown every day Valsartan - Hx Tablets 80mg 90tabs 1 by mouth Taniay, 03/26/2017 every day You Heaton M.D., [facility] Valsartan - Hx Tablets 40mg 90tabs 1 by mouth Taniya, 01/14/2018 every day You Heaton M.D., [facility] Immunizations Description No Information Available Vital Signs Date Vital Result Comment 07/21/2018 2:33pm BP Systolic Sitting Left Arm 150 mmHg BP Diastolic Sitting Left Arm 48 mmHg Heart Rate 66 /min Respiratory Rate 16 /min Height 62 inches 5'2" Weight 198.00 lb BMI (Body Mass Index) 36.2 kg/m2 BSA (Body Surface Area) 1.90 m2 [place] body weight in kilograms 50 kg O2 % BldC Oximetry 97 % 09/17/2017 1:36pm BP Systolic Sitting Left Arm 128 mmHg BP Diastolic Sitting Left Arm 58 mmHg Heart Rate 64 /min Respiratory Rate 16 /min Height 62 inches 5'2" Weight 205.00 lb BMI (Body Mass Index) 37.5 kg/m2 BSA (Body Surface Area) 1.93 m2 [place] body weight in kilograms 50 kg 03/26/2017 2:48pm BP Systolic Sitting Right Arm 132 mmHg BP Diastolic Sitting Right Arm 64 mmHg Heart Rate 72 /min Respiratory Rate 16 /min Height 62 inches 5'2" Weight 206.00 lb BMI (Body Mass Index) 37.7 kg/m2 BSA (Body Surface Area) 1.94 m2 [place] body weight in kilograms 50 kg 10/06/2016 8:19am BP Systolic Sitting Left Arm 132 mmHg BP Diastolic Sitting Left Arm 66 mmHg Heart Rate 72 /min Respiratory Rate 18 /min Height 62 inches 5'2" Weight 200.00 lb BMI (Body Mass Index) 36.6 kg/m2 BSA (Body Surface Area) 1.91 m2 [place] body weight in kilograms 50 kg 04/30/2016 2:12pm BP Systolic Sitting Left Arm 142 mmHg BP Diastolic Sitting Left Arm 66 mmHg Heart Rate 76 /min Respiratory Rate 16 /min Weight 198.00 lb 10/25/2015 3:26pm BP Systolic Sitting Right Arm 144 mmHg BP Diastolic Sitting Right Arm 66 mmHg Heart Rate 74 /min Respiratory Rate 16 /min Weight 200.00 lb 04/19/2015 2:07pm BP Systolic Sitting Left Arm 154 mmHg BP Diastolic Sitting Left Arm 70 mmHg Heart Rate 80 /min Respiratory Rate 16 /min Weight 202.00 lb 04/04/2015 9:09am BP Systolic Sitting Right Arm 132 mmHg BP Diastolic Sitting Right Arm 55 mmHg Respiratory Rate 16 /min 03/09/2015 1:23pm BP Systolic Sitting Right Arm 152 mmHg BP Diastolic Sitting Right Arm 68 mmHg Heart Rate 80 /min Respiratory Rate 16 /min Height 62 inches 5'2" Weight 195.00 lb BMI (Body Mass Index) 35.7 kg/m2 BSA (Body Surface Area) 1.89 m2 08/03/2014 10:35am Heart Rate 80 /min Respiratory Rate 16 /min Height 62 inches 5'2" Weight 190.00 lb BMI (Body Mass Index) 34.7 kg/m2 BSA (Body Surface Area) 1.87 m2 06/15/2014 9:44am BP Systolic Sitting Right Arm 122 mmHg BP Diastolic Sitting Right Arm 56 mmHg Heart Rate 76 /min Respiratory Rate 16 /min Height 62 inches 5'2" Weight 193.00 lb BMI (Body Mass Index) 35.3 kg/m2 BSA (Body Surface Area) 1.88 m2 09/01/2013 9:46am BP Systolic Sitting Left Arm 130 mmHg BP Diastolic Sitting Left Arm 66 mmHg Heart Rate 70 /min Respiratory Rate 14 /min Height 62 inches 5'2" Weight 193.00 lb BMI (Body Mass Index) 35.3 kg/m2 BSA (Body Surface Area) 1.88 m2 03/02/2013 10:59am BP Systolic Sitting Right Arm 126 mmHg BP Diastolic Sitting Right Arm 56 mmHg Heart Rate 69 /min Respiratory Rate 14 /min Height 62 inches 5'2" Weight 193.00 lb BMI (Body Mass Index) 35.3 kg/m2 BSA (Body Surface Area) 1.88 m2 09/15/2012 8:57am BP Systolic Sitting Right Arm 134 mmHg BP Diastolic Sitting Right Arm 68 mmHg Height 62 inches 5'2" Weight 196.00 lb BMI (Body Mass Index) 35.8 kg/m2 08/03/2012 9:41am BP Systolic Sitting Right Arm 138 mmHg BP Diastolic Sitting Right Arm 64 mmHg Heart Rate 78 /min Respiratory Rate 16 /min Height 63.75 inches 5'3.75" Weight 196.00 lb BMI (Body Mass Index) 33.9 kg/m2 01/23/2012 1:13pm BP Systolic Sitting Left Arm 126 mmHg BP Diastolic Sitting Left Arm 64 mmHg Heart Rate 78 /min Respiratory Rate 14 /min Height 63.75 inches 5'3.75" Weight 195.00 lb BMI (Body Mass Index) 33.7 kg/m2 07/24/2011 10:52am BP Systolic Sitting Left Arm 122 mmHg BP Diastolic Sitting Left Arm 52 mmHg Heart Rate 72 /min Respiratory Rate 16 /min Height 63.75 inches 5'3.75" Weight 197.00 lb BMI (Body Mass Index) 34.1 kg/m2 06/17/2011 11:10am BP Systolic Sitting Left Arm 126 mmHg BP Diastolic Sitting Left Arm 66 mmHg Heart Rate 65 /min Respiratory Rate 16 /min Height 63.75 inches 5'3.75" Weight 194.00 lb BMI (Body Mass Index) 33.6 kg/m2 06/02/2011 9:10am BP Systolic Sitting Right Arm 122 mmHg BP Diastolic Sitting Right Arm 68 mmHg Heart Rate 65 /min Respiratory Rate 16 /min Height 63.75 inches 5'3.75" Weight 197.00 lb BMI (Body Mass Index) 34.1 kg/m2 04/28/2011 11:40am BP Systolic Sitting Left Arm 116 mmHg BP Diastolic Sitting Left Arm 60 mmHg Heart Rate 64 /min Respiratory Rate 16 /min Height 63.75 inches 5'3.75" Weight 190.00 lb BMI (Body Mass Index) 32.9 kg/m2 03/25/2011 2:45pm BP Systolic Sitting Left Arm 130 mmHg BP Diastolic Sitting Left Arm 68 mmHg Heart Rate 84 /min Respiratory Rate 16 /min Height 63.75 inches 5'3.75" Weight 184.00 lb BMI (Body Mass Index) 31.8 kg/m2 03/12/2011 9:01am BP Systolic Sitting Left Arm 128 mmHg BP Diastolic Sitting Left Arm 78 mmHg Heart Rate 62 /min Respiratory Rate 16 /min Height 63.75 inches 5'3.75" Weight 186.00 lb BMI (Body Mass Index) 32.2 kg/m2 03/07/2011 8:19am BP Systolic Sitting Right Arm 124 mmHg BP Diastolic Sitting Right Arm 68 mmHg Heart Rate 72 /min Respiratory Rate 14 /min Height 63.75 inches 5'3.75" Weight 188.00 lb BMI (Body Mass Index) 32.5 kg/m2 08/27/2010 2:08pm BP Systolic Sitting Right Arm 128 mmHg BP Diastolic Sitting Right Arm 62 mmHg Heart Rate 63 /min Respiratory Rate 16 /min Height 62.5 inches 5'2.50" Weight 203.00 lb BMI (Body Mass Index) 36.5 kg/m2 03/08/2010 1:04pm Heart Rate 60 /min Respiratory Rate 16 /min Weight 196.00 lb 09/17/2009 1:35pm Heart Rate 64 /min Respiratory Rate 16 /min Weight 199.00 lb 06/19/2009 9:55am Heart Rate 60 /min Regular Respiratory Rate 16 /min Weight 200.00 lb 06/06/2009 10:23am Heart Rate 62 /min Regular Respiratory Rate 16 /min Weight 198.00 lb 03/20/2009 11:18am Heart Rate 68 /min Regular Respiratory Rate 16 /min regular Weight 195.00 lb + 3# Results Test Date Facility Test Result H/L Range Note Basic Metabolic 12/14/2016 [facility] Glucose 199 mg/dL High 74-106 1 Panel [address] [place], [place] [id number] [phone] BUN 42 mg/dL High 7-18 Creatinine 1.3 mg/dL N 0.6-1.3 Glom Filtration Rate, Estimate 44 mL/min >60 If 53 mL/min >60 2 BUN/Creat 32.3 ratio Sodium 141 mmol/L N 136-145 Potassium 5.1 mmol/L N 3.5-5.1 Chloride 106 mmol/L N 98-107 Carbon Dioxide 26 mmol/L N 21-32 Anion Gap 9 mEq/L N 8-16 Calcium 9.2 mg/dL N 8.5-10.1 Basic Metabolic Panel 05/08/2016 [facility] Glucose 114 mg/dL High 74-106 3 [address] [place], [place] [id number] [phone] BUN 13 mg/dL N 7-18 Creatinine 0.8 mg/dL N 0.6-1.3 Glom Filtration Rate, Estimate >60 mL/min N >60 If >60 mL/min N >60 4 BUN/Creat 16.2 ratio N Sodium 141 mmol/L N 136-145 Potassium 4.1 mmol/L N 3.5-5.1 Chloride 105 mmol/L N 98-107 Carbon Dioxide 28 mmol/L N 21-32 Anion Gap 8 mEq/L N 8-16 Calcium 9.3 mg/dL N 8.5-10.1 Laboratory test 10/30/2014 [facility] Troponin-I < 0.015 ng/mL 5 finding [address] [place] [address] [phone] Laboratory test 10/30/2014 [facility] Troponin-I < 0.015 ng/mL 6 finding [address] [place] [address] [phone] Hemoglobin/Hematocr 12/13/2013 [facility] Hemoglobin 12.8 gm/dL 11.6-15. it [address] [facility] [address] [place] [address] [phone] Hematocrit 34.9 % Low 36.0-46.1 LDL Cholesterol 06/30/2013 [facility] Cholesterol 202 mg/dL High 120-200 Profile [address] [place] [address] [phone] Triglycerides 395 mg/dL High 16-231 HDL Cholesterol 39 mg/dL 29-83 LDL-Cholesterol 84 mg/dL 62-185 Liver Function Tests 06/30/2013 [facility] Total Protein 7.8 g/dL 6.3-8.0 [address] [place] [address] [phone] Albumin 3.8 g/dL 3.5-5.0 Globulin 4.0 g/dL 1.9-4.3 Alb/Glob 1.0 ratio Bilirubin,Total 0.5 mg/dL 0.2-1.2 Bilirubin,Direct 0.1 mg/dL 0.1-0.4 Bilirubin,Indirect 0.4 mg/dL 0.0-0.9 Sgot/Ast 22 U/L 16-40 SGPT/Alt 45 U/L 30-65 Alkaline Phosphatase 135 U/L 50-136 Iron-Tibc-%Sat 06/30/2013 [facility] Serum Iron 137 g/dL 25-156 [address] [place], [place] [id number] [phone] Total Iron Binding Capacity 307 g/dL 245-419 Transferrin %Saturation 45 % 12-57 Comprehensive Metabolic 06/30/2013 [facility] Glucose 212 mg/dL High 76-115 Panel [address] [place], [place] [id number] [phone] BUN 12 mg/dL 5-23 Creatinine 0.7 mg/dL 0.5-1.4 Glom Filtration Rate, Estimate >60 mL/min >60 If >60 mL/min >60 7 BUN/Creat 17.1 ratio Sodium 137 mmol/L 136-145 Potassium 3.8 mmol/L 3.5-5.1 Chloride 104 mmol/L 98-107 Carbon Dioxide 27 mEq/L 18-29 Anion Gap 10 mEq/L 8-16 Calcium 8.9 mg/dL 8.5-10.1 Total Protein 7.8 g/dL 6.3-8.0 Albumin 3.8 g/dL 3.5-5.0 Globulin 4.0 g/dL 1.9-4.3 Alb/Glob 1.0 ratio Bilirubin,Total 0.5 mg/dL 0.2-1.2 Sgot/Ast 22 U/L 16-40 SGPT/Alt 45 U/L 30-65 Alkaline Phosphatase 135 U/L 50-136 Laboratory test finding 06/30/2013 [facility] CK 49 U/L 26-190 [address] [place] [address] [phone] Ferritin 56.9 ng/mL 3-105 Glycohemoglobin 06/30/2013 [facility] Glycohemoglobin 9.8 % High 4.8-6.0 8 A1c [address] [facility] (A1c) [place] [address] [phone] eAG 235 mg/dL Microalbumin,Random 06/30/2013 [facility] Microalbumin,Urine 380.0 High 0.0- 18.5 Urine [address] [facility] mg/[place] [address] [phone] Urine Screen 01/21/2013 [facility] Urine Color YELLOW Yellow [address] [place] [address] [phone] Urine Clarity CLEAR Clear Urine Glucose - Dipstick >=1000 mg/dL High Negative Urine Bilirubin - Dipstick NEGATIVE Negative Urine Ketone NEGATIVE mg/dL Negative Urine Specific Mercer 1.020 1.010-1.030 Urine Blood NEGATIVE Negative Urine PH 5.5 Low 6.5-7.5 Urine Protein - Dipstick NEGATIVE mg/dL Negative Urine Urobilinogen - Dipstick 0.2 E.U./dL 0.2-1.0 Urine Nitrite - Dipstick NEGATIVE Negative Urine Leuk Esterase NEGATIVE Negative CBC 01/21/2013 [facility] White Blood Count 6.8 K/uL 3.1-10.7 [address] [place], [place] [id number] [phone] Red Blood Count 4.29 M/uL 3.90-5.40 Hemoglobin 13.9 gm/dL 11.6-15.8 Hematocrit 38.6 % 36.0-46.1 Mean Cell Volume 90.0 fl 80.9-99.0 Mean Corpuscular HGB 32.4 pg 25.9-32.7 Mean Corpuscular HGB Conc 36.0 g/dL High 30.8-34.3 Platelet Count 220 K/uL 155-360 Red Cell Distri Width %CV 12.5 % 11.7-14.4 Mean Platelet Volume 11.8 fL 8.9-12.4 Basic Metabolic Panel 01/21/2013 [facility] Glucose 397 mg/dL High 76-115 [address] [place], [place] [id number] [phone] BUN 21 mg/dL 5-23 Creatinine 0.8 mg/dL 0.5-1.4 Glom Filtration Rate, Estimate >60 mL/min >60 If >60 mL/min >60 9 BUN/Creat 26.2 ratio Sodium 135 mmol/L Low 136-145 Potassium 4.2 mmol/L 3.5-5.1 Chloride 101 mmol/L 98-107 Carbon Dioxide 24 mEq/L 18-29 Anion Gap 14 mEq/L 8-16 Calcium 9.2 mg/dL 8.5-10.1 Basic Metabolic Panel 01/03/2013 [facility] Glucose 461 mg/dL High 76-115 [address] [place], [place] [id number] [phone] BUN 17 mg/dL 5-23 Creatinine 1.1 mg/dL 0.5-1.4 Glom Filtration Rate, Estimate 54 mL/min >60 If >60 mL/min >60 10 BUN/Creat 15.4 ratio Sodium 137 mmol/L 136-145 Potassium 4.4 mmol/L 3.5-5.1 Chloride 99 mmol/L 98-107 Carbon Dioxide 24 mEq/L 18-29 Anion Gap 18 mEq/L High 8-16 Calcium 9.2 mg/dL 8.5-10.1 Laboratory test 01/03/2013 [facility] Ferritin 52.5 ng/mL 3-[address] [place] [address] [phone] Rubella IgG 05/04/2012 [facility] Rubella IgG > 500.0 >=10.[address] Iu/ml IU/[place] [address] [phone] Laboratory test 05/04/2012 [facility] Mumps 4.60 index High 0.00-0.[address] Antibodies, [place] [address] Igg [phone] Rubella IgG Antibody Reactive Reactive Rubeola Antibodies, Igg 6.75 index High 0.00-0.90 13 LDL Cholesterol 04/20/2012 [facility] Cholesterol 205 mg/dL High 120-200 Profile [address] [place] [address] [phone] Triglycerides 513 mg/dL High 16-231 HDL Cholesterol 32 mg/dL 29-83 LDL-Cholesterol See Note mg/dL 62-185 14 Laboratory test 04/20/2012 [facility] Bilirubin,Direct 0.1 mg/dL 0.1-0.[address] [place], [place] [id number] [phone] CK 55 U/L 26-190 Ferritin 108.5 ng/mL High 3-105 Hemoglobin/Hematocrit 04/20/2012 [facility] Hemoglobin 13.8 11.6-15.[address] gm/[place] [address] [phone] Hematocrit 38.7 % 36.0-46.1 Glycohemoglobin 04/20/2012 [facility] Glycohemoglobin 11.1 % High 4.8-6.0 [address] (A1c) [place] [address] [phone] eAG 272 mg/dL Iron-Tibc-%Sat 04/20/2012 [facility] Serum Iron 111 g/dL 25-156 [address] [place] [address] [phone] Total Iron Binding Capacity 336 g/dL 245-419 Transferrin %Saturation 33 % 12-57 Comprehensive Metabolic 04/20/2012 [facility] Glucose 265 mg/dL High 76-115 Panel [address] [place] [address] [phone] BUN 17 mg/dL 5-23 Creatinine 0.8 mg/dL 0.5-1.4 Glom Filtration Rate, Estimate >60 mL/min >60 If >60 mL/min >60 16 BUN/Creat 21.2 ratio Sodium 136 mmol/L 136-145 Potassium 4.3 mmol/L 3.5-5.1 Chloride 102 mmol/L 98-107 Carbon Dioxide 25 mEq/L 18-29 Anion Gap 13 mEq/L 8-16 Calcium 8.9 mg/dL 8.5-10.1 Total Protein 7.8 g/dL 6.3-8.0 Albumin 3.8 g/dL 3.5-5.0 Globulin 4.0 g/dL 1.9-4.3 Alb/Glob 1.0 ratio Bilirubin,Total 0.4 mg/dL 0.2-1.2 Sgot/Ast 21 U/L 16-40 SGPT/Alt 56 U/L 30-65 Alkaline Phosphatase 101 U/L 50-136 Hemoglobin/Hematocrit 01/22/2012 [facility] Hemoglobin 13.6 11.6-15.8 [address] [facility] gm/[place] [address] [phone] Hematocrit 38.4 % 36.0-46.1 Liver Function Tests 01/22/2012 [facility] Total Protein 7.8 g/dL 6.3-8.0 [address] [place] [address] [phone] Albumin 3.8 g/dL 3.5-5.0 Globulin 4.0 g/dL 1.9-4.3 Alb/Glob 1.0 ratio Bilirubin,Total 0.4 mg/dL 0.2-1.2 Bilirubin,Direct < 0.1 mg/dL Low 0.1-0.4 Bilirubin,Indirect 0.3 mg/dL 0.0-0.9 Sgot/Ast 22 U/L 16-40 SGPT/Alt 52 U/L 30-65 Alkaline Phosphatase 102 U/L 50-136 Basic Metabolic Panel 01/22/2012 [facility] Glucose 190 mg/dL High 76-[address] [place], [place] [id number] [phone] BUN 16 mg/dL 5-23 Creatinine 0.7 mg/dL 0.5-1.4 Glom Filtration Rate, Estimate >60 mL/min >60 If >60 mL/min >60 17 BUN/Creat 22.8 ratio Sodium 136 mmol/L 136-145 Potassium 4.1 mmol/L 3.5-5.1 Chloride 103 mmol/L 98-107 Carbon Dioxide 26 mEq/L 18-29 Anion Gap 11 mEq/L 8-16 Calcium 9.3 mg/dL 8.5-10.1 LDL Cholesterol 01/22/2012 [facility] Cholesterol 180 mg/dL 120-200 Profile [address] [place], [place] [id number] [phone] Triglycerides 329 mg/dL High 16-231 HDL Cholesterol 35 mg/dL 29-83 LDL-Cholesterol 79 mg/dL 62-185 Laboratory test 01/22/2012 [facility] Ferritin 84.3 3-[address] ng/mL [place], [place] [id number] [phone] Glycohemoglobin 01/22/2012 [facility] Glycohemoglobin 10.2 % High 4.8-6.0 [address] (A1c) [place], [place] [id number] [phone] eAG 246 mg/dL Glycohemoglobin 07/24/2011 [facility] Glycohemoglobin 10.7 % High 4.8-6.0 [address] (A1c) [place] [address] [phone] eAG 260 mg/dL Liver Function Tests 07/24/2011 [facility] Total Protein 7.3 g/dL 6.3-8.0 [address] [place] [address] [phone] Albumin 3.6 g/dL 3.5-5.0 Globulin 3.7 g/dL 1.9-4.3 Alb/Glob 1.0 ratio Bilirubin,Total 0.3 mg/dL 0.2-1.2 Bilirubin,Direct < 0.1 mg/dL Low 0.1-0.4 Bilirubin,Indirect 0.2 mg/dL 0.0-0.9 Sgot/Ast 22 U/L 16-40 SGPT/Alt 48 U/L 30-65 Alkaline Phosphatase 81 U/L 50-136 LDL Cholesterol 07/24/2011 [facility] Cholesterol 165 mg/dL 120-200 Profile [address] [place], [place] [id number] [phone] Triglycerides 233 mg/dL High 16-231 HDL Cholesterol 36 mg/dL 29-83 LDL-Cholesterol 82 mg/dL 62-185 Laboratory test finding 07/24/2011 [facility] CK 57 U/L 26-190 [address] [place] [address] [phone] CK Isoenzymes,Serum 07/24/2011 [facility] CK,Total 55 U/L 24-173 [address] [place] [address] [phone] Macro II 0 NotObserved% CK-mm 100 % 97-100 Macro I 0 NotObserved% CK-MB 0 % 0-3 CK-BB 0 % 0 20 CBS W/Automated Diff 06/02/2011 [facility] White Blood 6.6 K/uL 3.1-10.7 [address] [place] [address] [phone] Red Blood Count 4.29 M/uL 3.90-5.40 Hemoglobin 13.9 gm/dL 11.6-15.8 Hematocrit 38.7 % 36.0-46.1 Mean Cell Volume 90.2 fl 80.9-99.0 Mean Corpuscular HGB 32.4 pg 25.9-32.7 Mean Corpuscular HGB Conc 35.9 g/dL High 30.8-34.3 Platelet Count 210 K/uL 155-360 Red Cell Distri Width %CV 12.1 % 11.7-14.4 Mean Platelet Volume 11.7 fL 8.9-12.4 Neut% 62.1 % 40.4-72.8 Lymph % 25.1 % 17.0-46.1 Mcintosh % 8.2 % 4.3-13.2 Eo% 2.9 % 0.0-6.6 Bas% 1.7 % High 0.0-1.1 Neut# 4.08 K/uL 1.0-7.0 Lymph # 1.65 K/uL 0.8-3.4 Mcintosh # 0.54 K/uL 0.3-0.9 Eos # 0.19 K/uL 0.0-0.5 Baso # 0.11 K/uL High 0.0-0.1 Red Cell Distri Width SD 39.0 fl 3-47 Protime 06/02/2011 [facility] Protime 13.6 seconds 12.2-15.2 [address] [place] [address] [phone] Inr 1.0 0.9-1.1 21 Liver Function 04/28/2011 [facility] Total Protein 8.1 g/dL High 6.3-8.0 Tests [address] [place] [address] [phone] Albumin 4.0 g/dL 3.5-5.0 Bilirubin,Total 0.5 mg/dL 0.2-1.2 Bilirubin,Direct 0.1 mg/dL 0.1-0.4 Bilirubin,Indirect 0.4 mg/dL 0.0-0.9 Sgot/Ast 30 U/L 16-40 SGPT/Alt 49 U/L 30-65 Alkaline Phosphatase 99 U/L 50-136 Globulin 4.1 g/dL 1.9-4.3 Alb/Glob 1.0 ratio LDL Cholesterol 04/28/2011 [facility] Cholesterol 183 mg/dL 120-200 Profile [address] [place], [place] [id number] [phone] Triglycerides 290 mg/dL High 16-231 HDL Cholesterol 39 mg/dL 29-83 LDL-Cholesterol 86 mg/dL 62-185 Laboratory test 04/28/2011 [facility] CK 91 U/L 26-190 finding [address] [place] [address] [phone] Laboratory test 03/26/2011 [facility] CK <pending> finding [address] [place] [address] [phone] LDL Cholesterol 03/07/2011 [facility] Cholesterol 183 mg/dL 120-200 Profile [address] [place] [address] [phone] Triglycerides 715 mg/dL High 16-231 HDL Cholesterol 29 mg/dL 29-83 LDL-Cholesterol See Note mg/dL 62-185 22 Comprehensive Metabolic 03/07/2011 [facility] Glucose 309 mg/dL High 76-115 Panel [address] [place] [address] [phone] BUN 15 mg/dL 5-23 Creatinine 0.6 mg/dL 0.5-1.4 Glom Filtration Rate, Estimate >60 mL/min >60 If >60 mL/min >60 23 BUN/Creat 25.0 ratio Sodium 135 mmol/L Low 136-145 Potassium 3.7 mmol/L 3.5-5.1 Chloride 97 mmol/L Low 98-107 Carbon Dioxide 29 mEq/L 18-29 Anion Gap 13 mEq/L 8-16 Calcium 8.7 mg/dL 8.5-10.1 Total Protein 7.6 g/dL 6.3-8.0 Albumin 3.6 g/dL 3.5-5.0 Globulin 4.0 g/dL 1.9-4.3 Alb/Glob 0.9 ratio Bilirubin,Total 0.2 mg/dL 0.2-1.2 Sgot/Ast 36 U/L 16-40 SGPT/Alt 63 U/L 30-65 Alkaline Phosphatase 128 U/L 50-136 Basic Metabolic Panel 03/08/2010 [facility] Glucose 199 mg/dL High 76-115 [address] [place] [address] [phone] BUN 19 mg/dL 5-23 Creatinine 0.8 mg/dL 0.5-1.4 Glom Filtration Rate, Estimate >60 mL/min >60 If >60 mL/min >60 24 BUN/Creat 23.7 Sodium 137 mEq/L 136-145 Potassium 4.2 mEq/L 3.5-5.1 Chloride 100 mEq/L 98-107 Carbon Dioxide 31 mEq/L 21-32 Anion Gap 10 mEq/L 8-16 Calcium 8.6 mg/dL 8.5-10.1 LDL Cholesterol 03/08/2010 [facility] Cholesterol 140 mg/dL 120-200 Profile [address] [place] [address] [phone] Triglycerides 124 mg/dL 0-210 HDL Cholesterol 35 mg/dL 32-96 LDL-Cholesterol 80 mg/dL 62-185 Liver Function Tests 03/08/2010 [facility] Total Protein 7.5 g/dL 6.3-8.0 [address] [place] [address] [phone] Albumin 3.6 g/dL 3.5-5.0 Bilirubin,Total 0.5 mg/dL 0.2-1.2 Bilirubin,Direct 0.1 mg/dL 0.1-0.4 Bilirubin,Indirect 0.4 mg/dL 0.0-0.9 Sgot/Ast 25 U/L 16-40 SGPT/Alt 54 U/L 30-65 Alkaline Phosphatase 139 U/L High 50-136 Globulin 3.9 gm/dL 1.9-4.3 Alb/Glob 0.9 Laboratory 03/08/2010 [facility] Glycohemoglobin A1c 10.2 % High 4.8-6.0 25 test finding [address] [place] [address] [phone] Ferritin 31.0 ng/mL 3-105 26 CBS W/Automated Diff 03/08/2010 [facility] White Blood 6.7 K/uL 3.1-10.7 [address] [facility] [place] [address] [phone] Red Blood Count 4.06 M/uL 3.90-5.40 Hemoglobin 12.6 gm/dL 11.6-15.8 Hematocrit 37.5 % 36.0-46.1 Mean Cell Volume 92.4 fl 80.9-99.0 Mean Corpuscular HGB 31.0 pg 25.9-32.7 Mean Corpuscular HGB Conc 33.6 g/dL 30.8-34.3 Platelet Count 166 K/uL 155-360 Red Cell Distri Width %CV 13.5 % 11.7-14.4 Mean Platelet Volume 12.5 fL High 8.9-12.4 Neut% 55.0 % 40.4-72.8 Lymph % 29.2 % 17.0-46.1 Mcintosh % 9.7 % 4.3-13.2 Eo% 5.1 % 0.0-6.6 Bas% 1.0 % 0.0-1.1 Neut# 3.7 K/uL 1.0-7.0 Lymph # 2.0 K/uL 0.8-3.4 Mcintosh # 0.7 K/uL 0.3-0.9 Eos # 0.3 K/uL 0.0-0.5 Baso # 0.1 K/uL 0.0-0.1 Red Cell Distri Width SD 44 fl 3-47 1 BMP 2 Note: Persistent reduction for 3 months or more in an eGFR <60 mL/min/1.73 m2 defines CKD. Patients with eGFR values >/=60 mL/min/1.73 m2 may also have CKD if evidence of persistent proteinuria is present. The original MDRD equation for estimated GFR is not valid for patients less than 18 years of age. Additional information may be found at [email or web address]. 3 OCCLUSION AND STENOSIS, CARDIAC MURMUR 4 Note: Persistent reduction for 3 months or more in an eGFR <60 mL/min/1.73 m2 defines CKD. Patients with eGFR values >/=60 mL/min/1.73 m2 may also have CKD if evidence of persistent proteinuria is present. The original MDRD equation for estimated GFR is not valid for patients less than 18 years of age. Additional information may be found at [email or web address]. 5 0.0 - 0.045 ng/mL: Normal 0.046 - 0.5 ng/mL: Suggestive 0.6 - 1.5 ng/mL: Consistent 6 0.0 - 0.045 ng/mL: Normal 0.046 - 0.5 ng/mL: Suggestive 0.6 - 1.5 ng/mL: Consistent 7 Note: Persistent reduction for 3 months or more in an eGFR <60 mL/min/1.73 m2 defines CKD. Patients with eGFR values >/=60 mL/min/1.73 m2 may also have CKD if evidence of persistent proteinuria is present. The original MDRD equation for estimated GFR is not valid for patients less than 18 years of age. Additional information may be found at www.[email or web address]. 8 A1c value between 5.7% and 6.4% is considered at increased risk for diabetes. A1c value greater than 6.5 % is considered essentially diagnostic for Type II diabetes. Current guidelines recommend a treatment goal of <7% for diabetic patients. This method will measure glycosylated hemoglobin variants, HbS, HbG, HbH, HbWayne, HbC, HbE, etc. Other hemoglobin- opathies may give incorrect results with this test. 9 Note: Persistent reduction for 3 months or more in an eGFR <60 mL/min/1.73 m2 defines CKD. Patients with eGFR values >/=60 mL/min/1.73 m2 may also have CKD if evidence of persistent proteinuria is present. The original MDRD equation for estimated GFR is not valid for patients less than 18 years of age. Additional information may be found at [email or web address]. 10 Note: Persistent reduction for 3 months or more in an eGFR <60 mL/min/1.73 m2 defines CKD. Patients with eGFR values >/=60 mL/min/1.73 m2 may also have CKD if evidence of persistent proteinuria is present. The original MDRD equation for estimated GFR is not valid for patients less than 18 years of age. Additional information may be found at [email or web address]. 11 Values >=10.0 IU/mL are positive for IgG antibodies to rubella virus and are considered IMMUNE. 12 Negative <0.91 Equivocal 0.91 - 1.09 Positive >1.09 Presence of antibodies to Mumps is presumptive evidence of immunity except when active infection is suspected. Performed at: RN - [facility] [address] [id number] [employer] Estimator: Baylee Jules MD, Phone: [phone] 13 Negative <0.91 Equivocal 0.91 - 1.09 Positive >1.09 Presence of antibodies to Rubeola is presumptive evidence of immunity except when active infection is suspected. 14 Test not performed (LDL CANNOT BE CALCULATED FOR TRIGS >400 mg/dL) 15 A1c value between 5.7% and 6.4% is considered at increased risk for diabetes. A1c value greater than 6.5 % is considered essentially diagnostic for Type II diabetes. Current guidelines recommend a treatment goal of <7% for diabetic patients. This method will measure glycosylated hemoglobin variants, HbS, HbG, HbH, HbWayne, HbC, HbE, etc. Other hemoglobin- opathies may give incorrect results with this test. 16 Note: Persistent reduction for 3 months or more in an eGFR <60 mL/min/1.73 m2 defines CKD. Patients with eGFR values >/=60 mL/min/1.73 m2 may also have CKD if evidence of persistent proteinuria is present. The original MDRD equation for estimated GFR is not valid for patients less than 18 years of age. Additional information may be found at www.[email or web address]. 17 Note: Persistent reduction for 3 months or more in an eGFR <60 mL/min/1.73 m2 defines CKD. Patients with eGFR values >/=60 mL/min/1.73 m2 may also have CKD if evidence of persistent proteinuria is present. The original MDRD equation for estimated GFR is not valid for patients less than 18 years of age. Additional information may be found at [email or web address]. 18 A1c value between 5.7% and 6.4% is considered at increased risk for diabetes. A1c value greater than 6.5 % is considered essentially diagnostic for Type II diabetes. Current guidelines recommend a treatment goal of <7% for diabetic patients. This method will measure glycosylated hemoglobin variants, HbS, HbG, HbH, HbWayne, HbC, HbE, etc. Other hemoglobin- opathies may give incorrect results with this test. 19 A1c value between 5.7% and 6.4% is considered at increased risk for diabetes. A1c value greater than 6.5 % is considered essentially diagnostic for Type II diabetes. Current guidelines recommend a treatment goal of <7% for diabetic patients. This method will measure glycosylated hemoglobin variants, HbS, HbG, HbH, HbWayne, HbC, HbE, etc. Other hemoglobin- opathies may give incorrect results with this test. 20 Performed at: RN - [facility] [address] [id number] [employer] Estimator: Gavin Miller MD, Phone: [phone] 21 THERAPEUTIC INR RANGE: 2.0 - 3.0 DVT, Pulmonary embolus, prophylaxis against venous thrombosis or systemic embolization in high risk patients. 2.5 - 3.5 Mechanical heart valves 22 Test not performed (LDL CANNOT BE CALCULATED FOR TRIGS >400 mg/dL) 23 Note: Persistent reduction for 3 months or more in an eGFR <60 mL/min/1.73 m2 defines CKD. Patients with eGFR values >/=60 mL/min/1.73 m2 may also have CKD if evidence of persistent proteinuria is present. The original MDRD equation for estimated GFR is not valid for patients less than 18 years of age. Additional information may be found at [email or web address]. 24 Note: Persistent reduction for 3 months or more in an eGFR <60 mL/min/1.73 m2 defines CKD. Patients with eGFR values >/=60 mL/min/1.73 m2 may also have CKD if evidence of persistent proteinuria is present. The original MDRD equation for estimated GFR is not valid for patients less than 18 years of age. Additional information may be found at www.[email or web address]. 25 Current guidelines recommend a treatment goal of <7% for diabetic patients. This method will measure glycosylated hemoglobin variants, HbS, HbG, HbH, HbWayne, HbC, HbE, etc. Other hemoglobin- opathies may give incorrect results with this test. Note change in expected values for healthy individuals 26 QUERY: @EMR Pat ID: [id number] QUERY: @EMR Req #: [id number] Procedures Date Code Description Status 07/21/2018 31527 EKG-Tracing And Report Completed 10/12/2017 92978 Echocardiogram Complete Completed 10/12/2017 55737 EKG-Tracing And Report Completed 09/17/2017 70632 EKG-Tracing And Report Completed 03/26/2017 36342 EKG-Tracing And Report Completed 12/16/2016 83230 Stress Test Interpre And Report Only Completed 12/16/2016 13534 Stress Test Physician Super Only Completed 12/16/2016 00699 Myocardial Imaging Tomographic Multiple Study AT Rest Or Completed Stress 10/06/2016 40622 EKG-Tracing And Report Completed 05/08/2016 34175 Echocardiogram Complete Completed 04/19/2015 14842 Event Monitor Inter/Review Only Completed 10/09/2014 25 Disability Form Completed 06/28/2014 23469 Myocardial Imaging Tomographic Multiple Study AT Rest Or Completed Stress 06/28/2014 47130 Stress Test Physician Super Only Completed 06/28/2014 91349 Stress Test Physician Super Only Completed 06/28/2014 04695 Stress Test Interpre And Report Only Completed 06/28/2014 06144 Echocardiogram Complete Completed 06/15/2014 98645 EKG-Tracing And Report Completed 06/14/2014 73159 Radiology, Shoulder: Two Views (Sso) Completed 09/12/2013 29952 Holter Monitor 24HR Inter/Report Completed 03/02/2013 03698 EKG-Tracing And Report Completed 01/21/2013 57453 EKG Interpretation And Report Only Completed 01/26/2012 89904 Myocardial Imaging Tomographic Multiple Study AT Rest Or Completed Stress 01/26/2012 71563 Stress Test Physician Super Only Completed 01/26/2012 39511 Stress Test Physician Super Only Completed 01/26/2012 59970 Stress Test Interpre And Report Only Completed 06/17/2011 57554 EKG-Tracing And Report Completed 05/05/2011 93162 Stress Test Interpre And Report Only Completed 05/05/2011 81917 Stress Test Physician Super Only Completed 05/05/2011 82834 Myocardial Imaging Tomographic Multiple Study AT Rest Or Completed Stress 08/27/2010 26399 EKG-Tracing And Report Completed 03/08/2010 64689 Echocardiogram Complete Completed 02/28/2010 88890 Stress Test Interpre And Report Only Completed 02/28/2010 74781 Stress Test Physician Super Only Completed 02/28/2010 07551 Myocardial Imaging Tomographic Multiple Study AT Rest Or Completed Stress 06/08/2009 91151 Cardiolite Stress/Rest Spect Completed 06/08/2009 17378 Myocardial Wall Motion Completed 06/08/2009 03697 Ejection Fraction Completed 06/08/2009 58578 Stress Test Physician Super Only Completed 06/08/2009 55494 Stress Test Interpre And Report Only Completed 03/20/2009 60599 EKG-Tracing And Report Completed 04/27/2008 42837 Stress Test Interpre And Report Only Completed 04/27/2008 55068 Stress Test Physician Super Only Completed 04/24/2008 56120 Doppler ECHO Color Flow Mapping Completed 04/24/2008 02064 Doppler Echocardiogram Complete Completed 04/24/2008 26619 Echocariogram 2D Complete Completed 09/28/2007 24884 EKG-Tracing And Report Completed 09/22/2007 07879 EKG-Tracing And Report Completed Encounters Type Date Location Provider Dx Diagnosis Office Visit 07/21/2018 Cardiology Office Annamaria Madrigal MD I25.10 Ath[facility] heart 2:15p disease of [place] coronary artery w/o ang pctrs Z01.810 Encounter for preprocedural cardiovascular examination I10 Essential (primary) hypertension E83.110 Hereditary hemochromatosis Office Visit 09/17/2017 1:40p Cardiology You Monahan R07.9 Chest pain, Office Vargas Heaton, FACC unspecified I25.10 Athscl heart disease of [place] coronary artery w/o ang pctrs I10 Essential (primary) hypertension E83.110 Hereditary hemochromatosis I65.29 Occlusion and stenosis of unspecified carotid artery Z01.810 Encounter for preprocedural cardiovascular examination Office Visit 03/26/2017 2:20p Cardiology You Monahan R07.9 Chest pain, Office Vargas Heaton, [facility] unspecified I25.10 Athscl heart disease of [place] coronary artery w/o ang pctrs I10 Essential (primary) hypertension Z01.810 Encounter for preprocedural cardiovascular examination Office Visit 12/15/2016 9:35a Cardiology Office Annamaria Madrigal, I20.0 Unstable angina MD Office Visit 10/06/2016 8:00a Cardiology Office Taniya I65.29 Occlusion and You Sudarshan, stenosis of M.D., [facility] unspecified carotid artery I25.10 Athscl heart disease of [place] coronary artery w/o ang pctrs I10 Essential (primary) hypertension E11.65 Type 2 diabetes mellitus with hyperglycemia E83.110 Hereditary hemochromatosis Office Visit 04/30/2016 2:00p Cardiology Office Nichole Marsh I25.10 Athscl heart Fabiano, SAÚL, disease of [facility] [place] coronary artery w/o ang pctrs E78.2 Mixed hyperlipidemia I65.29 Occlusion and stenosis of unspecified carotid artery I10 Essential (primary) hypertension E11.65 Type 2 diabetes mellitus with hyperglycemia R01.1 Cardiac murmur, unspecified Office Visit 10/25/2015 3:20p Cardiology Office You Monahan R53.83 Other fatigue Vargas Heaton, [facility] I25.10 Athscl heart disease of [place] coronary artery w/o ang pctrs E78.2 Mixed hyperlipidemia E11.65 Type 2 diabetes mellitus with hyperglycemia R60.9 Edema, unspecified E83.110 Hereditary hemochromatosis Office Visit 04/19/2015 2:00p Cardiology Office Nichole Marsh R00.2 Palpitations Fabiano, MSN, PERIOPERATIVE TECH I25.10 Athscl heart disease of [place] coronary artery w/o ang pctrs I65.29 Occlusion and stenosis of unspecified carotid artery I10 Essential (primary) hypertension E78.2 Mixed hyperlipidemia E11.65 Type 2 diabetes mellitus with hyperglycemia R60.9 Edema, unspecified Office Visit 04/04/2015 8:45a Cardiology Office Nichole Marsh M79.604 Pain in Fabiano, MSN, right leg PERIOPERATIVE TECH I25.118 Athscl heart disease of [place] cor art w ot ang pctrs I10 Essential (primary) hypertension E78.2 Mixed hyperlipidemia I65.29 Occlusion and stenosis of unspecified carotid artery Office Visit 03/09/2015 1:00p Cardiology Office You Monahan I25.118 [facility] Vargas Heaton, FACC disease of [place] cor art w ot ang pctrs I10 Essential (primary) hypertension E11.65 Type 2 diabetes mellitus with hyperglycemia E78.2 Mixed hyperlipidemia Office Visit 10/30/2014 2:08p [facility] EalrsachaGama, 786.50 [facility] MMihir Unspec Office Visit 09/27/2014 10:30a Orthopaedic Office Sg Mayer, 840.4 Sprains & M.D. Strains Rotator Cuff (Capsule) 719.41 Pain Joint Shoulder Region Office Visit 08/03/2014 Cardiology Taniya, 414.01 Coronary 11:20a Office You Heaton M.D., Atherosclerosis FACC [place] 413.9 Angina Pectoris Other Unspec 401.1 Hypertension Benign 272.2 Hyperlipidemia Mixed 250.02 Diabetes Mellitus W/O Compl Type II Or Unspec Type Uncontrol 275.01 Hereditary Hemochromatosis Office Visit 06/15/2014 Cardiology Tera Dvaidson 414.01 Coronary 9:40a Office MD Shmuel, PhD Atherosclerosis [place] 413.9 Angina Pectoris Other Unspec 401.1 Hypertension Benign 272.2 Hyperlipidemia Mixed 780.2 Syncope & Collapse 424.1 Aortic Valve Disorder Office Visit 06/14/2014 9:00a Orthopaedic Office Roddy Hudson 719.41 Pain Joint F.MD, FACS Shoulder Region 715.11 Osteoarthrosis Localized Prim Shoulder Region 727.61 Ruptured Rotator Cuff Complete Office Visit 09/01/2013 Cardiology Tera Davidson 414.01 Coronary 9:40a Office MD Shmuel, PhD Atherosclerosis [place] 414.01 Coronary Atherosclerosis [place] 413.9 Angina Pectoris Other Unspec 413.9 Angina Pectoris Other Unspec 401.1 Hypertension Benign 401.1 Hypertension Benign 272.2 Hyperlipidemia Mixed 272.2 Hyperlipidemia Mixed Office Visit 03/02/2013 8:54a Cardiology Tera Davidson V72.81 Examination Office MD Shmuel, PhD Preoperative Cardiovascular 840.4 Sprains & Strains Rotator Cuff (Capsule) 414.01 Coronary Atherosclerosis [place] 401.1 Hypertension Benign 272.2 Hyperlipidemia Mixed Office Visit 12/15/2012 8:50a Orthopaedic Office Loyd Greene 840.4 Sprains & A., MD Strains Rotator Cuff (Capsule) Office Visit 11/26/2012 9:10a Orthopaedic Office Loyd Greene 840.4 Sprains & A., MD Strains Rotator Cuff (Capsule) 840.4 Sprains & Strains Rotator Cuff (Capsule) Office Visit 10/19/2012 9:20a Orthopaedic Office Loyd Greene 840.4 Sprains & A., MD Strains Rotator Cuff (Capsule) Office Visit 09/15/2012 9:00a Orthopaedic Office Loyd Greene 840.4 Sprains & A., MD Strains Rotator Cuff (Capsule) 840.4 Sprains & Strains Rotator Cuff (Capsule) Office Visit 08/03/2012 Cardiology Tera Davidson 414.01 Coronary 9:30a Office MD Shmuel, PhD Atherosclerosis [place] 401.1 Hypertension Benign 272.4 Hyperlipidemia Other Unspec 413.9 Angina Pectoris Other Unspec Office Visit 01/23/2012 Cardiology Tera Davidson 414.01 Coronary 1:00p Office MD Shmuel, PhD Atherosclerosis [place] 401.1 Hypertension Benign 272.1 Hypertriglyceridemia Pure 272.4 Hyperlipidemia Other Unspec 786.51 Pain Precordial Office Visit 07/24/2011 10:40a Cardiology Office Tera Davidson 413.9 Angina Pectoris MD Shmuel, PhD Other Unspec 414.01 Coronary Atherosclerosis [place] 401.1 Hypertension Benign 272.1 Hypertriglyceridemia Pure 272.4 Hyperlipidemia Other Unspec 275.01 Hereditary Hemochromatosis Office Visit 06/17/2011 11:00a Cardiology Office Tera Davidson 413.9 Angina Pectoris MD Shmuel, PhD Other Unspec 414.01 Coronary Atherosclerosis [place] 401.1 Hypertension Benign 272.1 Hypertriglyceridemia Pure 272.4 Hyperlipidemia Other Unspec 275.01 Hereditary Hemochromatosis Office Visit 06/02/2011 9:00a Cardiology Office Tera Davidson 413.9 Angina Pectoris MD Shmuel, PhD Other Unspec 414.01 Coronary Atherosclerosis [place] 786.59 Pain Chest Other 401.1 Hypertension Benign 272.1 Hypertriglyceridemia Pure 272.4 Hyperlipidemia Other Unspec 311 Depressive Disorder Not Elsewhere Spec Office Visit 04/28/2011 Cardiology Tera Davidson 414.01 Coronary 1:00p Office MD Shmuel, PhD Atherosclerosis [place] 786.59 Pain Chest Other 401.1 Hypertension Benign 413.9 Angina Pectoris Other Unspec 272.1 Hypertriglyceridemia Pure 272.4 Hyperlipidemia Other Unspec 311 Depressive Disorder Not Elsewhere Spec Office Visit 03/25/2011 Cardiology Tera Davidson 414.01 Coronary 2:40p Office MD Shmuel, PhD Atherosclerosis [place] 786.59 Pain Chest Other 433.10 Occlusion & Stenosis Carotid Artery W/O Cerebral Infarction 401.1 Hypertension Benign 413.9 Angina Pectoris Other Unspec 272.1 Hypertriglyceridemia Pure 272.4 Hyperlipidemia Other Unspec Office Visit 03/12/2011 Cardiology Tera Davidson 414.01 Coronary 9:00a Office MD Shmuel, PhD Atherosclerosis [place] 786.59 Pain Chest Other 433.10 Occlusion & Stenosis Carotid Artery W/O Cerebral Infarction 401.1 Hypertension Benign 413.9 Angina Pectoris Other Unspec 272.1 Hypertriglyceridemia Pure 458.9 Hypotension Unspec Office Visit 03/07/2011 Cardiology Tera Davidson 414.01 Coronary 10:40a Office MD Shmuel, PhD Atherosclerosis [place] 786.59 Pain Chest Other 433.10 Occlusion & Stenosis Carotid Artery W/O Cerebral Infarction 401.1 Hypertension Benign 413.9 Angina Pectoris Other Unspec 272.1 Hypertriglyceridemia Pure Office Visit 08/27/2010 Cardiology Taniya 414.01 Coronary 2:00p Office You Heaton M.D., Atherosclerosis FAC [place] 786.59 Pain Chest Other 433.10 Occlusion & Stenosis Carotid Artery W/O Cerebral Infarction 401.1 Hypertension Benign 272.4 Hyperlipidemia Other Unspec 250.02 Diabetes Mellitus W/O Compl Type II Or Unspec Type Uncontrol Office Visit 03/08/2010 1:00p Cardiology Office You Monahan 786.59 Pain Chest Vargas Heaton, [facility] Other 414.01 Coronary Atherosclerosis [place] 433.10 Occlusion & Stenosis Carotid Artery W/O Cerebral Infarction 780.79 Malaise And Fatigue Other Office Visit 09/17/2009 1:20p Cardiology Office You Monahan 786.59 Pain Chest Vargas Heaton, FAC Other 401.1 Hypertension Benign 414.01 Coronary Atherosclerosis [place] 311 Depressive Disorder Not Elsewhere Spec 785.2 Murmur Cardiac Undiagnosed Office Visit 06/19/2009 9:40a Cardiology Office You Monahan 786.59 Pain Chest Vargas Heaton, [facility] Other 401.1 Hypertension Benign 414.01 Coronary Atherosclerosis [place] Office Visit 06/06/2009 11:00a Cardiology Office Nichole Marsh 786.50 Pain Chest Fabiano, MSN, Unspec PERIOPERATIVE TECH 414.01 Coronary Atherosclerosis [place] 428.0 Congestive Heart Failure Unspecified 311 Depressive Disorder Not Elsewhere Spec 401.1 Hypertension Benign 785.9 Cardiovascular Symptoms Other 272.4 Hyperlipidemia Other Unspec 250.02 Diabetes Mellitus W/O Compl Type II Or Unspec Type Uncontrol Office Visit 03/20/2009 10:40a Cardiology Office You Monahan 250.02 Diabetes Vargas Heaton, FACC Mellitus W/O Compl Type II Or Unspec Type Uncontrol 414.9 Ischemic Heart Disease Chronic Unspec 272.4 Hyperlipidemia Other Unspec Office Visit 08/09/2008 Cardiology Nichole Marsh 414.01 Coronary 10:15a Office Fabiano, SAÚL, Atherosclerosis PERIOPERATIVE TECH [place] 433.10 Occlusion & Stenosis Carotid Artery W/O Cerebral Infarction 401.1 Hypertension Benign 272.4 Hyperlipidemia Other Unspec Office Visit 04/19/2008 Cardiology Taniya 414.01 Coronary 9:15a Office You Heaton M.D., Atherosclerosis FACC [place] 250.02 Diabetes Mellitus W/O Compl Type II Or Unspec Type Uncontrol Office Visit 02/23/2008 Cardiology Taniya, 414.01 Coronary 10:15a Office You Heaton M.D., Atherosclerosis FAC [place] 443.9 Peripheral Vascular Disease Unspec Office Visit 02/07/2008 Cardiology Taniya, 414.01 Coronary 10:15a Office You Heaton M.D., Atherosclerosis FAC [place] 785.9 Cardiovascular Symptoms Other 401.1 Hypertension Benign 272.4 Hyperlipidemia Other Unspec Office Visit 09/28/2007 Cardiology Taniya 414.01 Coronary 10:15a Office You Heaton M.D., Atherosclerosis FAC [place] 414.9 Ischemic Heart Disease Chronic Unspec Office Visit 09/22/2007 Cardiology Taniya, 794.30 Cardiovascular 1:15p Office You Heaton M.D., Function Study FACC Unspec Abnormal 786.50 Pain Chest Unspec 401.1 Hypertension Benign 272.4 Hyperlipidemia Other Unspec Plan of Treatment Future Appointment(s):10/25/2018 2:15 pm - Annamaria Madrigal MD at Cardiology [facility]1607/21/2018 - Annamaria Madrigal MDI25.10 Atherosclerotic heart disease of [place] coronary artery withComments:Chronic stable CAD. No signs or symptoms of ischemia.Z01.810 Encounter for preprocedural cardiovascular examinationComments: Despite her arthritis limitations she exercises every day with a retail personal banker and goes to PT. She is able to do amongst other things treadmill at 30% incline at 2.5 mph speed for 20 min. She will be at moderate risk for MACE due to combination of her underlying risk factors, but she is currently medically optimized to proceed an no additional cardiac testing is indicated. She should proceed as planned. Her antiplatelet therapy can be held as needed prior to surgery. Given the fact that she will be on LMWH post surgery, I would favor resuming only one antiplatelet post procedure, i..e Plavix andhold ASA indefinitely. She will be reassessed for medication recommendations in our office afterwards.Please call with questions.I10 Essential (primary) hypertensionComments:Repeated BP 140/64 mmHg. Very anxious today about upcoming surgery. Her daughter is an MA and checksher BP every other day and usually runs around 120'/60'. No changes made gilugR07.110 Hereditary hemochromatosisComments:Had Echo 09/2017 with no evidence for restriction or LV dysfunction.Will hold off additional testingat this time.AllFollow up:3 months Sooner appt if symptoms arise.
--- OUTSIDE RECORDS SUMMARY | 2018-08-10 06:43 | XMS REPORT | Continuity of Care Document ---
:1950 External Reference #:[id number] Author Name Melonie Reed Care Team Providers Name Role Phone Jason Mercado MD Care Team Information [place] Unavailable Jason Mercado MD Primary Care Physician Unavailable Payers Type Date Identification Numbers Payment Provider Subscriber Effective: Policy Number: [id number] [employer] Eufemia Smith 2016 Expires: 2017 PayID: [id number] [address] [place] [address] Policy Number: [id number] [employer] [facility] Eufemia Smith PayID: [id number] [address] [address] [place] [address] Advance Directives Description No Information Available Problems Date Description Provider Status Onset: 03/12/2011 Coronary arteriosclerosis Tera Davidson MD, PhD Active Onset: 03/12/2011 Benign essential hypertension Tera Davidson MD, PhD Active Onset: 03/12/2011 Angina pectoris Tera Davidson MD, PhD Active Onset: 03/12/2011 Pure hyperglyceridemia Tera Davidson MD, PhD Active Onset: 03/12/2011 Hyperlipidemia You Monahan Active M.D., [facility] Onset: 09/15/2012 Strain of rotator cuff capsule Loyd Greene MD Active Onset: 06/14/2014 Localized, primary osteoarthritis Roddy Hudson MD, Active of the shoulder region FACS Onset: 06/14/2014 Full thickness rotator cuff tear Roddy Hudson MD, Active FACS Onset: 08/03/2014 Mixed hyperlipidemia You Monahan Active M.Sumit, FACC Onset: 08/03/2014 Type II diabetes mellitus You Monahan, Active uncontrolled M.Sumit, FACC Onset: 08/03/2014 Hereditary hemochromatosis You Monahan Active M.Sumit, FACC Onset: 03/09/2015 Type II diabetes mellitus You Monahan, Active uncontrolled M.DYung, FACC Onset: 03/09/2015 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, Active makah coronary artery with other M.Sumit, FACC forms of angina pectoris Onset: 03/09/2015 Essential hypertension You Monahan Active M.Sumit, FACC Onset: 04/04/2015 Essential hypertension Nichole Marsh, Active MSN, [employer] Onset: 04/19/2015 Carotid artery occlusion Nichole Marsh, Active MSN, [employer] Onset: 10/25/2015 Malaise and fatigue You Monahan Active M.Sumit, FACC Onset: 10/25/2015 Edema You Monahan Active M.Sumit, FACC Onset: 03/26/2017 Chest pain You Monahan Active M.Sumit, FACC Onset: 03/26/2017 Preoperative cardiovascular You Monahan Active examination M.Sumit, FAC Family History Date Family Member(s) Problem(s) Comments [...] by Rohan s mouth every MD Annamaria day Cpap 09/17 Active everynight Teresa You M.D., [facility] Nitrostat 03/14 Active Tablets 0.4mg 25tab 1 tab sl Rohan Sub s every 5 min MD Annamaria x3 chest pain Atorvastatin 08/03 Active Tablets 40mg 90tab take one I25.118 Constantinoenko Calcium s tablet by , You mouth every M., M.D., day [facility] Amlodipine 06/17 Active Tablets 10mg 90tab take one I10 Teresako Besylate s tablet by , You mouth every M., M.D., day [facility] Fenofibrate 03/12 Active Tablets 54mg 90tab take one E78.1 Constantinoenko s tablet by You mouth every M., M.D., day [facility] Aspirin Active Tablets 81mg 1 po qd You HADLEY M.D., [facility] Lantus Solostar Active Solution 150Unit/M 40 u in Unknown L morning 30 U hs Ambien Active Tablets 10mg 30tab 1 tab po s qpm Ranexa Active Tablets 1000mg 180ta take one ER 12HR bs tablet by You mouth twice M., M.D., a day [facility] Lasix Active Tablets 20mg 1 by mouth every day and take another as needed for additional edema Humalog Kwikpen Active Solution 100Unit/M 20 U Before Pen-Injec L Breakfast t Or Lunch For Sugar Over 100 Isosorbide Active Tablets 30mg 1 po tid Unknown Mononitrate ER /0000 ER 24HR Oxycodone HCL Active Tablets 10mg 1 by mouth every 4-6 hour as needed pain Plavix Active Tablets 75mg 30tab Take One s Tablet By You Every Vargas Heaton, Day [facility] Spironolactone Active Tablets 50mg 1 by mouth [...] s every day , You Heaton M.D., [facility] Lisinopril 06/20 Hx Tablets 20mg 90tab 1 by mouth s every day , You Heaton M.D., [facility] Valsartan 05/12 Hx Tablets 80mg 30tab 1 by mouth Marsh s every day Nichole Mario 06/20 , MSN, /2015 [employer] Benicar HCT 04/30 Hx Tablets 20-12.5mg 30tab 1 by mouth I10 Marsh s every day Nichole Mario , MSN, [employer] Irbesartan 05/01 Hx Tablets 75mg 90tab Take One I10 Rohan s Tablet By MD Annamaria - Mouth Every /2015 Furosemide 04/19 Hx Tablets 20mg 150ta 1 by mouth R60.9 Rohan, bs every day MD Annamaria with extra 1/2 tablet as needed edema Medrol (Byron) 04/04 Hx Tablets 4mg 1pack one pack M79.604 with dosage Nichole titration Fabiano schedule as , MSN, included [employer] Lexapro 03/14 Hx Tablets 10mg 30tab 1 by mouth s every day , You Heaton M.D., [facility] Furosemide 01/08 Hx Tablets 20mg 30tab Take One R60.9 Rohan s Tablet By MD Annamaria - Mouth Every 04/19 Day as Needed Isosorbide 12/13 Hx Tablets 60mg 30tab take one Jovani, Mononitrate ER ER 24HR s tablet by Marlyss - mouth every B., PA 03/26 day Lasix 11/01 Hx Tablets 20mg 90tab 1 by mouth s every day Tera Mi, as needed , PhD Ketorolac 01/24 Hx Tablets 10mg 20tab 1 tab by Maria Greene s mouth every Loyd 6 hours. MD Benoit first dose in or Hydrocodone/Acetam 01/24 Hx Tablets 5-325mg 20tab 1 tab by Jc inophen s mouth every Loyd 4 hours as MD Benoit needed Aldactone 12/29 Hx Tablets 25mg 90tab take 1 s tablet by , You mouth every Vargas Heaton, day [facility] Pravachol 03/25 Hx Tablets 40mg 90tab 1 po qd s Antionette Canada MD, PhD 04/19 Pravachol 02/26 Hx Tablets 80mg 90tab 1 po q day s Antionette Canada MD, PhD 03/25 Effient 09/17 Hx Tablets 10mg 90tab 1 po qd s Tera Mi MD, PhD Imdur 06/25 Hx Tablets 60mg 90tab one po qd ER 24HR s Antionette Canada MD, PhD 12/13 Imdur 06/24 Hx Tablets 30mg 90tab po qd ER 24HR s You M.D., 06/25 [facility] Benicar 03/12 Hx Tablets 20mg 90tab 1 by mouth 401.1 s every other Antionette Canada MD, PhD 10/09 Spironolactone 03/07 Hx Tablets 25mg 90tab 1/2 by 401.1 s mouth every shailesh Canada MD, PhD Carvedilol 03/07 Hx Tablets 3.125mg 135ta Take One I25.118 bs Tablet By You Three M.Vargas, Times A Day [facility] Potassium Chloride 09/19 Hx Capsules 10Meq 30cap po qd ER s You M.D., 03/07 [facility] Furosemide 03/22 Hx Tabs 20mg 90tab Take 1 Constantino s Tablet By You - Mouth Every MVargas Barragan, 03/07 Day as [facility] Needed For Edema Atenolol 03/22 Hx Tabs 50mg 90tab Take 1/2 414.01 Teresa s Tablet PO , You - bid Vargas Heaton, 03/07 [facility] Atenolol 03/08 Hx Tablets 25mg 1/2 by nicola mouth twice , Mariza day Vargas Heaton, [facility] Ranexa 02/25 Hx Tablets 500mg 60tab Take One ER 12HR s Tablet By You Mouth Twice Vargas Heaton, A Day [facility] Ativan 06/06 Hx Tablets 0.5mg 90tab 1 po q8h 311 Marsh, s prn SAÚL Mckinney, [employer] Lexapro 06/06 Hx Tablets 10mg 45tab 1 and 06/30 311 Davidson, s po qd Tera Mi MD, PhD Lasix 06/06 Hx Tablets 20mg 30tab 1 tab po qd 428.0 Marsh, s prn edema Nichole Mario , MSN, [employer] Benicar HCT 06/06 Hx Tablets 20-12.5mg 30tab Take 1 401.1 s Tablet By You Mouth Every Vargas Heaton, 03/12 Day [facility] Amlodipine Hx Tablets 10mg 30tab 1 po qd Taniya Bes You ruiz M.D., 03/07 [facility] Atenolol Hx Tablets 50mg 90tab 1 1/2 tabs Daviden / s po qam and , You - 1 qpm Vargas Heaton, 03/08 [facility] Folic Acid Hx Tablets 1mg 90tab 1 po qd Davidenko /0000 You ruiz M.D., [facility] Ambien CR Hx Tablets 12.5mg 30tab po qod prn Marsh, / ER s Nichole - Fabiano 08/21 , MSN, [employer] Hydrochlorothiazid Hx Tablets 25mg 90tab 1 po qd 401.1 Taniya e You ruiz M.D., 06/06 [facility] Aspirin Ec Hx Tablets 325mg 1 po qd Daviden You HADLEY M.D., [facility] Nitroglycerin Hx Tablets 0.4mg 1 tab prn Daviden You Downey M.D., [facility] Lantus Hx Solution 100Unit/M 70 units sq Daviden L qpm You M.D., 08/27 [facility] Humalog Hx Solution 100Unit/M 18 units Davidenko L bid,15 , You units qpm Vargas Heaton, [facility] Lipitor Hx Tablets 20mg 90tab 2 po qd Davidson, s Tera Mi MD, PhD Metformin HCL ER Hx Tablets 500mg po bid Daviden ER 24HR , You Heaton M.D., [facility] Ambien Hx Tablets 10mg 30tab 1 tab po qd Davidson, s prn Tera Mi MD, PhD Isosorbide Hx Tablets 30mg 90tab 1 po qd Davidenko Mononitrate ER ER 24HR s You M.D., 03/07 [facility] Fish Oil Hx Capsules 1000mg po qd Daviden , oYu Heaton M.D., [facility] Potassium Chloride Hx Capsules 10Meq po qd Marsh, ER Nichole - Simonetta 09/19 , MSN, [employer] Plavix Hx Tabs 75mg 30tab Take 1 Teresa s Tablet By You Every Vargas Heaton, Day [facility] Humalog Kwikpen Hx Solution 100Unit/M as directed Unknown / L Lexapro Hx Tablets 10mg 1 po qd 311 Unknown / Ambien Hx Tablets 10mg 1 tab po Unknown qpm/prn Ranexa Hx Tablets 1000mg 1 po bid Unknown ER 12HR - 06/17 Lexapro Hx Tablets 10mg 90tab 1/2 tab po 311 , / s qd Tera Mi MD, PhD Atorvastatin Hx Tablets 40mg 30tab 1 po qd Unknown Calcium s - 02/26 Atorvastatin Hx Tablets 40mg 90tab take 1 , Calcium s tablet once Tera Mi daily , PhD Oxycodone HCL Hx Tablets 5mg 1 tab po q4-6h prn Aldactone Hx Tablets 12.5mg 90tab 1 po qd s - 12/29 Lipitor Hx Tablets 40mg 30tab 1 po qd s Coreg Hx Tablets 3.125mg 60tab 1 po bid s Baclofen Hx Tablets 5mg po bid prn Ibuprofen Hx Tablets 600mg 30tab 1 po q6h s prn pain use as first line pain control Benicar HCT Hx Tablets 20-12.5mg 45tab 1 by mouth I10 , s every other Tera Mi, - day , PhD 04/19 I25.10 Cyclobenzaprine HCL Hx Tablets [...] 05/01/2015 mouth every Nichole day Fabiano, MSN, [employer] Benicar Hx Tablets 20mg 1 by mouth Unknown every day Valsartan - Hx Tablets 80mg 90tabs 1 by mouth Taniya, 03/26/2017 every day You Heaton M.D., [facility] Valsartan - Hx Tablets 40mg 90tabs 1 by mouth Taniya, 01/14/2018 every day You Heaton M.D., [facility] Immunizations Description No Information Available Vital Signs Date Vital Result Comment 07/21/2018 2:33pm BP Systolic Sitting Left Arm 150 mmHg BP Diastolic Sitting Left Arm 48 mmHg Heart Rate 66 /min Respiratory Rate 16 /min Height 62 inches 5'2" Weight 198.00 lb BMI (Body Mass Index) 36.2 kg/m2 BSA (Body Surface Area) 1.90 m2 Alma body weight in kilograms 50 kg O2 % BldC Oximetry 97 % 09/17/2017 1:36pm BP Systolic Sitting Left Arm 128 mmHg BP Diastolic Sitting Left Arm 58 mmHg Heart Rate 64 /min Respiratory Rate 16 /min Height 62 inches 5'2" Weight 205.00 lb BMI (Body Mass Index) 37.5 kg/m2 BSA (Body Surface Area) 1.93 m2 Alma body weight in kilograms 50 kg 03/26/2017 2:48pm BP Systolic Sitting Right Arm 132 mmHg BP Diastolic Sitting Right Arm 64 mmHg Heart Rate 72 /min Respiratory Rate 16 /min Height 62 inches 5'2" Weight 206.00 lb BMI (Body Mass Index) 37.7 kg/m2 BSA (Body Surface Area) 1.94 m2 Alma body weight in kilograms 50 kg 10/06/2016 8:19am BP Systolic Sitting Left Arm 132 mmHg BP Diastolic Sitting Left Arm 66 mmHg Heart Rate 72 /min Respiratory Rate 18 /min Height 62 inches 5'2" Weight 200.00 lb BMI (Body Mass Index) 36.6 kg/m2 BSA (Body Surface Area) 1.91 m2 Alma body weight in kilograms 50 kg 04/30/2016 [...] Result H/L Range Note Basic Metabolic 12/14/2016 [facility] Glucose 199 mg/dL High 74-106 1 Panel [address] [place], [place] [address] [phone] BUN 42 mg/dL High 7-18 Creatinine 1.3 mg/dL N 0.6-1.3 Glom Filtration Rate, Estimate 44 mL/min >60 If 53 mL/min >60 2 BUN/Creat 32.3 ratio Sodium 141 mmol/L N 136-145 Potassium 5.1 mmol/L N 3.5-5.1 Chloride 106 mmol/L N 98-107 Carbon Dioxide 26 mmol/L N 21-32 Anion Gap 9 mEq/L N 8-16 Calcium 9.2 mg/dL N 8.5-10.1 Basic Metabolic Panel 05/08/2016 [facility] Glucose 114 mg/dL High 74-106 3 [address] [place], [place] [address] [phone] BUN 13 mg/dL N 7-18 Creatinine 0.8 mg/dL N 0.6-1.3 Glom Filtration Rate, Estimate >60 mL/min N >60 If >60 mL/min N >60 4 BUN/Creat 16.2 ratio N Sodium 141 mmol/L N 136-145 Potassium 4.1 mmol/L N 3.5-5.1 Chloride 105 mmol/L N 98-107 Carbon Dioxide 28 mmol/L N 21-32 Anion Gap 8 mEq/L N 8-16 Calcium 9.3 mg/dL N 8.5-10.1 Laboratory test 10/30/2014 [facility] Troponin-I < 0.015 ng/mL [address] [place] [address] [phone] Laboratory test 10/30/2014 [facility] Troponin-I < 0.015 ng/mL 6 finding [address] [place] [address] [phone] Hemoglobin/Hematocr 12/13/2013 [facility] Hemoglobin 12.8 gm/dL 11.6-15. it [address] [place] [address] [phone] Hematocrit 34.9 % Low 36.0-46.1 Microalbumin,Random 06/30/2013 [facility] Microalbumin,Urine 380.0 High 0.0- 18.[address] mg/[place] [address] [phone] Glycohemoglobin A1c 06/30/2013 [facility] Glycohemoglobin 9.8 % High 4.8-6.[address] (A1c) [place], [place] [address] [phone] eAG 235 mg/dL Laboratory test finding 06/30/2013 [facility] CK 49 U/L 26-190 [address] [place] [id number] [phone] Ferritin 56.9 ng/mL 3-105 Comprehensive Metabolic 06/30/2013 [facility] Glucose 212 mg/dL High 76-115 Panel [address] [place] [address] [phone] BUN 12 mg/dL 5-23 Creatinine 0.7 mg/dL 0.5-1.4 Glom Filtration Rate, Estimate >60 mL/min >60 If >60 mL/min >60 8 BUN/Creat 17.1 ratio Sodium 137 mmol/L 136-145 [...] Alkaline Phosphatase 135 U/L 50-136 Iron-Tibc-%Sat 06/30/2013 [facility] Serum Iron 137 g/dL 25-156 [address] [place] [address] [phone] Total Iron Binding Capacity 307 g/dL 245-419 Transferrin %Saturation 45 % 12-57 Liver Function Tests 06/30/2013 [facility] Total Protein 7.8 g/dL 6.3-8.0 [address] [place] [address] [phone] Albumin 3.8 g/dL 3.5-5.0 Globulin 4.0 g/dL 1.9-4.3 Alb/Glob 1.0 ratio Bilirubin,Total 0.5 mg/dL 0.2-1.2 Bilirubin,Direct 0.1 mg/dL 0.1-0.4 Bilirubin,Indirect 0.4 mg/dL 0.0-0.9 Sgot/Ast 22 U/L 16-40 SGPT/Alt 45 U/L 30-65 Alkaline Phosphatase 135 U/L 50-136 LDL Cholesterol 06/30/2013 [facility] Cholesterol 202 mg/dL High 120-200 Profile [address] [place] [address] [phone] Triglycerides 395 mg/dL High 16-231 HDL Cholesterol 39 mg/dL 29-83 LDL-Cholesterol 84 mg/dL 62-185 Urine Screen 01/21/2013 [facility] Urine Color YELLOW Yellow [address] [place] [address] [phone] Urine Clarity CLEAR Clear Urine Glucose - Dipstick >=1000 mg/dL High Negative Urine Bilirubin - Dipstick NEGATIVE Negative Urine Ketone NEGATIVE mg/dL Negative Urine Specific Falkner 1.020 1.010-1.030 Urine Blood NEGATIVE Negative Urine PH 5.5 Low 6.5-7.5 Urine Protein - Dipstick NEGATIVE mg/dL Negative Urine Urobilinogen - Dipstick 0.2 E.U./dL 0.2-1.0 Urine Nitrite - Dipstick NEGATIVE Negative Urine Leuk Esterase NEGATIVE Negative CBC 01/21/2013 [facility] White Blood Count 6.8 K/uL 3.1-10.7 [address] [place] [address] [phone] Red Blood Count 4.29 M/uL 3.90-5.40 Hemoglobin 13.9 gm/dL 11.6-15.8 Hematocrit 38.6 % 36.0-46.1 Mean Cell Volume 90.0 fl 80.9-99.0 Mean Corpuscular HGB 32.4 pg 25.9-32.7 Mean Corpuscular HGB Conc 36.0 g/dL High 30.8-34.3 Platelet Count 220 K/uL 155-360 Red Cell Distri Width %CV 12.5 % 11.7-14.4 Mean Platelet Volume 11.8 fL 8.9-12.4 Basic Metabolic Panel 01/21/2013 [facility] Glucose 397 mg/dL High 76-115 [address] [place] [address] [phone] BUN 21 mg/dL 5-23 Creatinine 0.8 mg/dL 0.5-1.4 Glom Filtration Rate, Estimate >60 mL/min >60 If >60 mL/min >60 9 BUN/Creat 26.2 ratio Sodium 135 mmol/L Low 136-145 Potassium 4.2 mmol/L 3.5-5.1 Chloride 101 mmol/L 98-107 Carbon Dioxide 24 mEq/L 18-29 Anion Gap 14 mEq/L 8-16 Calcium 9.2 mg/dL 8.5-10.1 Basic Metabolic Panel 01/03/2013 [facility] Glucose 461 mg/dL High 76-115 [address] [place] [address] [phone] BUN 17 mg/dL 5-23 Creatinine 1.1 mg/dL 0.5-1.4 Glom Filtration Rate, Estimate 54 mL/min >60 If >60 mL/min >60 10 BUN/Creat 15.4 ratio Sodium 137 mmol/L 136-145 Potassium 4.4 mmol/L 3.5-5.1 Chloride 99 mmol/L 98-107 Carbon Dioxide 24 mEq/L 18-29 Anion Gap 18 mEq/L High 8-16 Calcium 9.2 mg/dL 8.5-10.1 Laboratory test 01/03/2013 [facility] Ferritin 52.5 ng/mL 3-[address] [place], [place] [id number] [phone] Laboratory test 05/04/2012 [facility] Mumps 4.60 index High 0.00-0.90 [address] Antibodies, [place] [address] Igg [phone] Rubella IgG Antibody Reactive Reactive Rubeola Antibodies, Igg 6.75 index High 0.00-0.90 12 Rubella IgG 05/04/2012 [facility] Rubella IgG Iu/ml > 500.0 >=10.0 [address] IU/mL [place], [place] [id number] [phone] Glycohemoglobin 04/20/2012 [facility] Glycohemoglobin 11.1 % High 4.8-6.0 [address] (A1c) [place] [address] [phone] eAG 272 mg/dL Comprehensive Metabolic 04/20/2012 [facility] Glucose 265 mg/dL High 76-[address] [place] [address] [phone] BUN 17 mg/dL 5-23 Creatinine 0.8 mg/dL 0.5-1.4 Glom Filtration Rate, Estimate >60 mL/min >60 If >60 mL/min >60 15 BUN/Creat 21.2 ratio Sodium 136 mmol/L 136-145 Potassium 4.3 mmol/L 3.5-5.1 Chloride 102 mmol/L 98-107 Carbon Dioxide 25 mEq/L 18-29 Anion Gap 13 mEq/L 8-16 Calcium 8.9 mg/dL 8.5-10.1 Total Protein 7.8 g/dL 6.3-8.0 Albumin 3.8 g/dL 3.5-5.0 Globulin 4.0 g/dL 1.9-4.3 Alb/Glob 1.0 ratio Bilirubin,Total 0.4 mg/dL 0.2-1.2 Sgot/Ast 21 U/L 16-40 SGPT/Alt 56 U/L 30-65 Alkaline Phosphatase 101 U/L 50-136 Laboratory test 04/20/2012 [facility] Bilirubin,Direct 0.1 mg/dL 0.1-0.4 finding [address] [place] [address] [phone] CK 55 U/L 26-190 Ferritin 108.5 ng/mL High 3-105 Hemoglobin/Hematocrit 04/20/2012 [facility] Hemoglobin 13.8 11.6-15.[address] gm/[place] [address] [phone] Hematocrit 38.7 % 36.0-46.1 LDL Cholesterol 04/20/2012 [facility] Cholesterol 205 mg/dL High 120-200 Profile [address] [place], [place] [address] [phone] Triglycerides 513 mg/dL High 16-231 HDL Cholesterol 32 mg/dL 29-83 LDL-Cholesterol See Note mg/dL 62-185 16 Iron-Tibc-%Sat 04/20/2012 [facility] Serum Iron 111 g/dL 25-156 [address] [place] [address] [phone] Total Iron Binding Capacity 336 g/dL 245-419 Transferrin %Saturation 33 % 12-57 Hemoglobin/Hematocrit 01/22/2012 [facility] Hemoglobin 13.6 11.6-15.[address] gm/[place] [address] [phone] Hematocrit 38.4 % 36.0-46.1 Liver Function Tests 01/22/2012 [facility] Total Protein 7.8 g/dL 6.3-8.0 [address] [place], [place] [address] [phone] Albumin 3.8 g/dL 3.5-5.0 Globulin 4.0 g/dL 1.9-4.3 Alb/Glob 1.0 ratio Bilirubin,Total 0.4 mg/dL 0.2-1.2 Bilirubin,Direct < 0.1 mg/dL Low 0.1-0.4 Bilirubin,Indirect 0.3 mg/dL 0.0-0.9 Sgot/Ast 22 U/L 16-40 SGPT/Alt 52 U/L 30-65 Alkaline Phosphatase 102 U/L 50-136 Basic Metabolic Panel 01/22/2012 [facility] Glucose 190 mg/dL High 76-[address] [place], [place] [address] [phone] BUN 16 mg/dL 5-23 Creatinine 0.7 mg/dL 0.5-1.4 Glom Filtration Rate, Estimate >60 mL/min >60 If >60 mL/min >60 17 BUN/Creat 22.8 ratio Sodium 136 mmol/L 136-145 Potassium 4.1 mmol/L 3.5-5.1 Chloride 103 mmol/L 98-107 Carbon Dioxide 26 mEq/L 18-29 Anion Gap 11 mEq/L 8-16 Calcium 9.3 mg/dL 8.5-10.1 LDL Cholesterol 01/22/2012 [facility] Cholesterol 180 mg/dL 120-200 Profile [address] [place], [place] [id number] [phone] Triglycerides 329 mg/dL High 16-231 HDL Cholesterol 35 mg/dL 29-83 LDL-Cholesterol 79 mg/dL 62-185 Laboratory test 01/22/2012 [facility] Ferritin 84.3 3-[address] ng/mL [place], [place] [address] [phone] Glycohemoglobin 01/22/2012 [facility] Glycohemoglobin 10.2 % High 4.8-6.0 [address] (A1c) [place], [place] [address] [phone] eAG 246 mg/dL Glycohemoglobin 07/24/2011 [facility] Glycohemoglobin 10.7 % High 4.8-6.0 [address] (A1c) [place], [place] [address] [phone] eAG 260 mg/dL Liver Function Tests 07/24/2011 [facility] Total Protein 7.3 g/dL 6.3-8.0 [address] [place] [address] [phone] Albumin 3.6 g/dL 3.5-5.0 Globulin 3.7 g/dL 1.9-4.3 Alb/Glob 1.0 ratio Bilirubin,Total 0.3 mg/dL 0.2-1.2 Bilirubin,Direct < 0.1 mg/dL Low 0.1-0.4 Bilirubin,Indirect 0.2 mg/dL 0.0-0.9 Sgot/Ast 22 U/L 16-40 SGPT/Alt 48 U/L 30-65 Alkaline Phosphatase 81 U/L 50-136 LDL Cholesterol 07/24/2011 [facility] Cholesterol 165 mg/dL 120-200 Profile [address] [place] [address] [phone] Triglycerides 233 mg/dL High 16-231 HDL Cholesterol 36 mg/dL 29-83 LDL-Cholesterol 82 mg/dL 62-185 Laboratory test finding 07/24/2011 [facility] CK 57 U/L 26-190 [address] [place] [address] [phone] CK Isoenzymes,Serum 07/24/2011 [facility] CK,Total 55 U/L 24-173 [address] [place] [address] [phone] Macro II 0 NotObserved% CK-mm 100 % 97-100 Macro I 0 NotObserved% CK-MB 0 % 0-3 CK-BB 0 % 0 20 CBS W/Automated Diff 06/02/2011 [facility] White Blood 6.6 K/uL 3.1-10.7 [address] [facility] [place] [address] [phone] Red Blood Count 4.29 M/uL 3.90-5.40 Hemoglobin 13.9 gm/dL 11.6-15.8 Hematocrit 38.7 % 36.0-46.1 Mean Cell Volume 90.2 fl 80.9-99.0 Mean Corpuscular HGB 32.4 pg 25.9-32.7 Mean Corpuscular HGB Conc 35.9 g/dL High 30.8-34.3 Platelet Count 210 K/uL 155-360 Red Cell Distri Width %CV 12.1 % 11.7-14.4 Mean Platelet Volume 11.7 fL 8.9-12.4 Neut% 62.1 % 40.4-72.8 Lymph % 25.1 % 17.0-46.1 Newton % 8.2 % 4.3-13.2 Eo% 2.9 % 0.0-6.6 Bas% 1.7 % High 0.0-1.1 Neut# 4.08 K/uL 1.0-7.0 Lymph # 1.65 K/uL 0.8-3.4 Newton # 0.54 K/uL 0.3-0.9 Eos # 0.19 K/uL 0.0-0.5 Baso # 0.11 K/uL High 0.0-0.1 Red Cell Distri Width SD 39.0 fl 3-47 Protime 06/02/2011 [facility] Protime 13.6 seconds 12.2-15.2 [address] [place] [address] [phone] Inr 1.0 0.9-1.1 21 Liver Function 04/28/2011 [facility] Total Protein 8.1 g/dL High 6.3-8.0 Tests [address] [place] [address] [phone] Albumin 4.0 g/dL 3.5-5.0 Bilirubin,Total 0.5 mg/dL 0.2-1.2 Bilirubin,Direct 0.1 mg/dL 0.1-0.4 Bilirubin,Indirect 0.4 mg/dL 0.0-0.9 Sgot/Ast 30 U/L 16-40 SGPT/Alt 49 U/L 30-65 Alkaline Phosphatase 99 U/L 50-136 Globulin 4.1 g/dL 1.9-4.3 Alb/Glob 1.0 ratio LDL Cholesterol 04/28/2011 [facility] Cholesterol 183 mg/dL 120-200 Profile [address] [place] [address] [phone] Triglycerides 290 mg/dL High 16-231 HDL Cholesterol 39 mg/dL 29-83 LDL-Cholesterol 86 mg/dL 62-185 Laboratory test 04/28/2011 [facility] CK 91 U/L 26-190 finding [address] [place] [address] [phone] Laboratory test 03/26/2011 [facility] CK <pending> finding [address] [place] [address] [phone] LDL Cholesterol 03/07/2011 [facility] Cholesterol 183 mg/dL 120-200 Profile [address] [place] [address] [phone] Triglycerides 715 mg/dL High 16-231 HDL Cholesterol 29 mg/dL 29-83 LDL-Cholesterol See Note mg/dL 62-185 22 Comprehensive Metabolic 03/07/2011 [facility] Glucose 309 mg/dL High 76-115 Panel [address] [place], [place] [id number] [phone] BUN 15 mg/dL 5-23 Creatinine 0.6 mg/dL [...] 128 U/L 50-136 Basic Metabolic Panel 03/08/2010 [facility] Glucose 199 mg/dL High 76-115 [address] [place], [place] [id number] [phone] BUN 19 mg/dL 5-23 Creatinine 0.8 mg/dL 0.5-1.4 Glom Filtration Rate, Estimate >60 mL/min >60 If >60 mL/min >60 24 BUN/Creat 23.7 Sodium 137 mEq/L 136-145 Potassium 4.2 mEq/L 3.5-5.1 Chloride 100 mEq/L 98-107 Carbon Dioxide 31 mEq/L 21-32 Anion Gap 10 mEq/L 8-16 Calcium 8.6 mg/dL 8.5-10.1 LDL Cholesterol 03/08/2010 [facility] Cholesterol 140 mg/dL 120-200 Profile [address] [place] [address] [phone] Triglycerides 124 mg/dL 0-210 HDL Cholesterol 35 mg/dL 32-96 LDL-Cholesterol 80 mg/dL 62-185 Liver Function Tests 03/08/2010 [facility] Total Protein 7.5 g/dL 6.3-8.0 [address] [place] [address] [phone] Albumin 3.6 g/dL 3.5-5.0 Bilirubin,Total 0.5 mg/dL 0.2-1.2 Bilirubin,Direct 0.1 mg/dL 0.1-0.4 Bilirubin,Indirect 0.4 mg/dL 0.0-0.9 Sgot/Ast 25 U/L 16-40 SGPT/Alt 54 U/L 30-65 Alkaline Phosphatase 139 U/L High 50-136 Globulin 3.9 gm/dL 1.9-4.3 Alb/Glob 0.9 Laboratory 03/08/2010 [facility] Glycohemoglobin A1c 10.2 % High 4.8-6.0 25 test finding [address] [place] [address] [phone] Ferritin 31.0 ng/mL 3-105 26 CBS W/Automated Diff 03/08/2010 [facility] White Blood 6.7 K/uL 3.1-10.[address] [place] [address] [phone] Red Blood Count 4.06 M/uL 3.90-5.40 Hemoglobin 12.6 gm/dL 11.6-15.8 Hematocrit 37.5 % 36.0-46.1 Mean Cell Volume 92.4 fl 80.9-99.0 Mean Corpuscular HGB 31.0 pg 25.9-32.7 Mean Corpuscular HGB Conc 33.6 g/dL 30.8-34.3 Platelet Count 166 K/uL 155-360 Red Cell Distri Width %CV 13.5 % 11.7-14.4 Mean Platelet Volume 12.5 fL High 8.9-12.4 Neut% 55.0 % 40.4-72.8 Lymph % 29.2 % 17.0-46.1 Newton % 9.7 % 4.3-13.2 Eo% 5.1 % 0.0-6.6 Bas% 1.0 % 0.0-1.1 Neut# 3.7 K/uL 1.0-7.0 Lymph # 2.0 K/uL 0.8-3.4 Newton # 0.7 K/uL 0.3-0.9 Eos # 0.3 [...] Suggestive 0.6 - 1.5 ng/mL: Consistent 7 A1c value between 5.7% and 6.4% is considered at increased risk for diabetes. A1c value greater than 6.5 % is considered essentially diagnostic for Type II diabetes. Current guidelines recommend a treatment goal of <7% for diabetic patients. This method will measure glycosylated hemoglobin variants, HbS, HbG, HbH, HbWayne, HbC, HbE, etc. Other hemoglobin- opathies may give incorrect results with this test. 8 Note: Persistent reduction for 3 months or more in an eGFR <60 mL/min/1.73 m2 defines CKD. Patients with eGFR values >/=60 mL/min/1.73 m2 may also have CKD if evidence of persistent proteinuria is present. The original MDRD equation for estimated GFR is not valid for patients less than 18 years of age. Additional information may be found at www.kdoqi.org. 9 Note: Persistent reduction for 3 months [...] information may be found at www.kdoqi.org. 11 Negative <0.91 Equivocal 0.91 - 1.09 Positive >1.09 Presence of antibodies to Mumps is presumptive evidence of immunity except when active infection is suspected. Performed at: RN - [facility] [address] [id number] [place]: Baylee Jules MD, Phone: [phone] 12 Negative <0.91 Equivocal 0.91 - 1.09 Positive >1.09 Presence of antibodies to Rubeola is presumptive evidence of immunity except when active infection is suspected. 13 Values >=10.0 IU/mL are positive for IgG antibodies to rubella virus and are considered IMMUNE. 14 A1c value between 5.7% and 6.4% is considered at increased risk for diabetes. A1c value greater than 6.5 % is considered essentially diagnostic for Type II diabetes. Current guidelines recommend a treatment goal of <7% for diabetic patients. This method will measure glycosylated hemoglobin variants, HbS, HbG, HbH, HbWayne, HbC, HbE, etc. Other hemoglobin- opathies may give incorrect results with this test. 15 Note: Persistent reduction for 3 months or more in an eGFR <60 mL/min/1.73 m2 defines CKD. Patients with eGFR values >/=60 mL/min/1.73 m2 may also have CKD if evidence of persistent proteinuria is present. The original MDRD equation for estimated GFR is not valid for patients less than 18 years of age. Additional information may be found at www.kdoqi.org. 16 Test not performed (LDL CANNOT BE CALCULATED FOR TRIGS >400 mg/dL) 17 Note: Persistent reduction for 3 months [...] test. 20 Performed at: RN - [facility] [address] [id number] [place]: Gavin Miller MD, Phone: [phone] 21 THERAPEUTIC INR RANGE: 2.0 - 3.0 [...] 8816 Procedures Date Code Description Status 07/21/2018 94518 EKG-Tracing And Report Completed 10/12/2017 26663 Echocardiogram Complete Completed 10/12/2017 60538 EKG-Tracing And Report Completed 09/17/2017 45702 EKG-Tracing And Report Completed 03/26/2017 02738 EKG-Tracing And Report Completed 12/16/2016 67972 Stress Test Interpre And Report Only Completed 12/16/2016 68813 Stress Test Physician Super Only Completed 12/16/2016 21925 Myocardial Imaging Tomographic Multiple Study AT Rest Or Completed Stress 10/06/2016 05442 EKG-Tracing And Report Completed 05/08/2016 22468 Echocardiogram Complete Completed 04/19/2015 11212 Event Monitor Inter/Review Only Completed 10/09/2014 25 Disability Form Completed 06/28/2014 28747 Myocardial Imaging Tomographic Multiple Study AT Rest Or Completed Stress 06/28/2014 78594 Stress Test Physician Super Only Completed 06/28/2014 00819 Stress Test Physician Super Only Completed 06/28/2014 69100 Stress Test Interpre And Report Only Completed 06/28/2014 87377 Echocardiogram Complete Completed 06/15/2014 71493 EKG-Tracing And Report Completed 06/14/2014 27877 Radiology, Shoulder: Two Views (Sso) Completed 09/12/2013 85407 Holter Monitor 24HR Inter/Report Completed 03/02/2013 21290 EKG-Tracing And Report Completed 01/21/2013 93200 EKG Interpretation And Report Only Completed 01/26/2012 12693 Myocardial Imaging Tomographic Multiple Study AT Rest Or Completed Stress 01/26/2012 39854 Stress Test Physician Super Only Completed 01/26/2012 64200 Stress Test Physician Super Only Completed 01/26/2012 94215 Stress Test Interpre And Report Only Completed 06/17/2011 82041 EKG-Tracing And Report Completed 05/05/2011 93185 Stress Test Interpre And Report Only Completed 05/05/2011 19982 Stress Test Physician Super Only Completed 05/05/2011 47671 Myocardial Imaging Tomographic Multiple Study AT Rest Or Completed Stress 08/27/2010 69723 EKG-Tracing And Report Completed 03/08/2010 16894 Echocardiogram Complete Completed 02/28/2010 80908 Stress Test Interpre And Report Only Completed 02/28/2010 76298 Stress Test Physician Super Only Completed 02/28/2010 52248 Myocardial Imaging Tomographic Multiple Study AT Rest Or Completed Stress 06/08/2009 89930 Cardiolite Stress/Rest Spect Completed 06/08/2009 70023 Myocardial Wall Motion Completed 06/08/2009 40953 Ejection Fraction Completed 06/08/2009 86949 Stress Test Physician Super Only Completed 06/08/2009 80250 Stress Test Interpre And Report Only Completed 03/20/2009 78827 EKG-Tracing And Report Completed 04/27/2008 04718 Stress Test Interpre And Report Only Completed 04/27/2008 59351 Stress Test Physician Super Only Completed 04/24/2008 95731 Doppler ECHO Color Flow Mapping Completed 04/24/2008 82822 Doppler Echocardiogram Complete Completed 04/24/2008 16620 Echocariogram 2D Complete Completed 09/28/2007 87706 EKG-Tracing And Report Completed 09/22/2007 61714 EKG-Tracing And Report Completed Encounters Type Date Location Provider Dx Diagnosis Office Visit 07/21/2018 Cardiology Office Annamaria Madrigal MD I25.10 Athscl heart 2:15p disease of mak[place] coronary artery w/o ang pctrs Z01.810 Encounter for preprocedural cardiovascular examination I10 Essential (primary) hypertension E83.110 Hereditary hemochromatosis Office Visit 09/17/2017 1:40p Cardiology You Monahan R07.9 Chest pain, Office Vargas Heaton, FACC unspecified I25.10 Athscl heart disease of [place] coronary artery w/o ang pctrs I10 Essential (primary) hypertension E83.110 Hereditary hemochromatosis I65.29 Occlusion and stenosis of unspecified carotid artery Z01.810 Encounter for preprocedural cardiovascular examination Office Visit 03/26/2017 2:20p Cardiology You Monahan R07.9 Chest pain, Office Vargas Heaton, [facility] unspecified I25.10 Athscl heart disease of [place] coronary artery w/o ang pctrs I10 Essential (primary) hypertension Z01.810 Encounter for preprocedural cardiovascular examination Office Visit 12/15/2016 9:35a Cardiology Office Annamaria Madrigal, I20.0 Unstable angina MD Office Visit 10/06/2016 8:00a Cardiology Office Taniya, I65.29 Occlusion and You Heaton, stenosis of M.D., [facility] unspecified carotid artery I25.10 Athscl heart disease of [place] coronary artery w/o ang pctrs I10 Essential (primary) hypertension E11.65 Type 2 diabetes mellitus with hyperglycemia E83.110 Hereditary hemochromatosis Office Visit 04/30/2016 2:00p Cardiology Office Nichole Marsh I25.10 Athscl heart SAÚL Mario, disease of [employer] [place] coronary artery w/o ang pctrs E78.2 Mixed hyperlipidemia I65.29 Occlusion and stenosis of unspecified carotid artery I10 Essential (primary) hypertension E11.65 Type 2 diabetes mellitus with hyperglycemia R01.1 Cardiac murmur, unspecified Office Visit 10/25/2015 3:20p Cardiology Office You Monahan R53.83 Other fatigue Vargas Heaton, [facility] I25.10 Athscl heart disease of [place] coronary artery w/o ang pctrs E78.2 Mixed hyperlipidemia E11.65 Type 2 diabetes mellitus with hyperglycemia R60.9 Edema, unspecified E83.110 Hereditary hemochromatosis Office Visit 04/19/2015 2:00p Cardiology Office Nichole Marsh R00.2 Palpitations SAÚL Mario, [employer] I25.10 Athscl heart disease of [place] coronary artery w/o ang pctrs I65.29 Occlusion and stenosis of unspecified carotid artery I10 Essential (primary) hypertension E78.2 Mixed hyperlipidemia E11.65 Type 2 diabetes mellitus with hyperglycemia R60.9 Edema, unspecified Office Visit 04/04/2015 8:45a Cardiology Office Nichole Marsh M79.604 Pain in SAÚL Mario, right leg [employer] I25.118 Athscl heart disease of [place] cor art w ot ang pctrs I10 Essential (primary) hypertension E78.2 Mixed hyperlipidemia I65.29 Occlusion and stenosis of unspecified carotid artery Office Visit 03/09/2015 1:00p Cardiology Office You Monahan I25.118 [facility] heart Vargas Heaton, FACC disease of mak[place] cor art w ot ang pctrs I10 Essential (primary) hypertension E11.65 Type 2 diabetes mellitus with hyperglycemia E78.2 Mixed hyperlipidemia Office Visit 10/30/2014 2:08p [facility] Renaldo Gama, 786.50 [facility] M.DYung Unspec Office Visit 09/27/2014 10:30a Orthopaedic Office Sg Mayer, 840.4 Sprains & M.D. Strains Rotator Cuff (Capsule) 719.41 Pain Joint Shoulder Region Office Visit 08/03/2014 Cardiology Taniya, 414.01 Coronary 11:20a Office You Heaton M.D., Atherosclerosis FACC [place] 413.9 Angina Pectoris Other Unspec 401.1 Hypertension Benign 272.2 Hyperlipidemia Mixed 250.02 Diabetes Mellitus W/O Compl Type II Or Unspec Type Uncontrol 275.01 Hereditary Hemochromatosis Office Visit 06/15/2014 Cardiology Tera Davidson 414.01 Coronary 9:40a Office MD Shmuel, PhD Atherosclerosis [place] 413.9 Angina Pectoris Other Unspec 401.1 Hypertension Benign 272.2 Hyperlipidemia Mixed 780.2 Syncope & Collapse 424.1 Aortic Valve Disorder Office Visit 06/14/2014 9:00a Orthopaedic Office Roddy Hudson 719.41 Pain Joint FMD Yung, FACS Shoulder Region 715.11 Osteoarthrosis Localized Prim Shoulder Region 727.61 Ruptured Rotator Cuff Complete Office Visit 09/01/2013 Cardiology Tera Davidson 414.01 Coronary 9:40a Office MD Shmuel, PhD Atherosclerosis [place] 414.01 Coronary Atherosclerosis [place] 413.9 Angina Pectoris Other Unspec 413.9 Angina Pectoris Other Unspec 401.1 Hypertension Benign 401.1 Hypertension Benign 272.2 Hyperlipidemia Mixed 272.2 Hyperlipidemia Mixed Office Visit 03/02/2013 8:54a Cardiology Tera Davidson V72.81 Examination Office MD Shmuel, PhD Preoperative Cardiovascular 840.4 Sprains & Strains Rotator Cuff (Capsule) 414.01 Coronary Atherosclerosis [place] 401.1 Hypertension Benign 272.2 Hyperlipidemia Mixed Office [...] Coronary 9:30a Office MD Shmuel, PhD Atherosclerosis [place] 401.1 Hypertension Benign 272.4 Hyperlipidemia Other Unspec 413.9 Angina Pectoris Other Unspec Office Visit 01/23/2012 Cardiology Tera Davidson 414.01 Coronary 1:00p Office MD Shmuel, PhD Atherosclerosis [place] 401.1 Hypertension Benign 272.1 Hypertriglyceridemia Pure 272.4 Hyperlipidemia Other Unspec 786.51 Pain Precordial Office Visit 07/24/2011 10:40a Cardiology Office Tera Davidson 413.9 Angina Pectoris MD Shmuel, PhD Other Unspec 414.01 Coronary Atherosclerosis [place] 401.1 Hypertension Benign 272.1 Hypertriglyceridemia Pure 272.4 Hyperlipidemia Other Unspec 275.01 Hereditary Hemochromatosis Office Visit 06/17/2011 11:00a Cardiology Office Tera Davidson 413.9 Angina Pectoris MD Shmuel, PhD Other Unspec 414.01 Coronary Atherosclerosis [place] 401.1 Hypertension Benign 272.1 Hypertriglyceridemia Pure 272.4 Hyperlipidemia Other Unspec 275.01 Hereditary Hemochromatosis Office Visit 06/02/2011 9:00a Cardiology Office Tera Davidson 413.9 Angina Pectoris MD Shmuel, PhD Other Unspec 414.01 Coronary Atherosclerosis [place] 786.59 Pain Chest Other 401.1 Hypertension Benign 272.1 Hypertriglyceridemia Pure 272.4 Hyperlipidemia Other Unspec 311 Depressive Disorder Not Elsewhere Spec Office Visit 04/28/2011 Cardiology Tera Davidson 414.01 Coronary 1:00p Office MD Shmuel, PhD Atherosclerosis [place] 786.59 Pain Chest Other 401.1 Hypertension Benign 413.9 Angina Pectoris Other Unspec 272.1 Hypertriglyceridemia Pure 272.4 Hyperlipidemia Other Unspec 311 Depressive Disorder Not Elsewhere Spec Office Visit 03/25/2011 Cardiology Tera Davidson 414.01 Coronary 2:40p Office MD Shmuel, PhD Atherosclerosis [place] 786.59 Pain Chest Other 433.10 Occlusion & Stenosis Carotid Artery W/O Cerebral Infarction 401.1 Hypertension Benign 413.9 Angina Pectoris Other Unspec 272.1 Hypertriglyceridemia Pure 272.4 Hyperlipidemia Other Unspec Office Visit 03/12/2011 Cardiology Tera Davidson 414.01 Coronary 9:00a Office MD Shmuel, PhD Atherosclerosis [place] 786.59 Pain Chest Other 433.10 Occlusion & Stenosis Carotid Artery W/O Cerebral Infarction 401.1 Hypertension Benign 413.9 Angina Pectoris Other Unspec 272.1 Hypertriglyceridemia Pure 458.9 Hypotension Unspec Office Visit 03/07/2011 Cardiology Tera Davidson 414.01 Coronary 10:40a Office MD Shmuel, PhD Atherosclerosis [place] 786.59 Pain Chest Other 433.10 Occlusion & Stenosis Carotid Artery W/O Cerebral Infarction 401.1 Hypertension Benign 413.9 Angina Pectoris Other Unspec 272.1 Hypertriglyceridemia Pure Office Visit 08/27/2010 Cardiology Taniya 414.01 Coronary 2:00p Office You Heaton M.D., Atherosclerosis FACC [place] 786.59 Pain Chest Other 433.10 Occlusion & Stenosis Carotid Artery W/O Cerebral Infarction 401.1 Hypertension Benign 272.4 Hyperlipidemia Other Unspec 250.02 Diabetes Mellitus W/O Compl Type II Or Unspec Type Uncontrol Office Visit 03/08/2010 1:00p Cardiology Office You Monahan 786.59 Pain Chest M., M.D., FACC Other 414.01 Coronary Atherosclerosis [place] 433.10 Occlusion & Stenosis Carotid Artery W/O Cerebral Infarction 780.79 Malaise And Fatigue Other Office Visit 09/17/2009 1:20p Cardiology Office You Monahan 786.59 Pain Chest M., M.D., FACC Other 401.1 Hypertension Benign 414.01 Coronary Atherosclerosis [place] 311 Depressive Disorder Not Elsewhere Spec 785.2 Murmur Cardiac Undiagnosed Office Visit 06/19/2009 9:40a Cardiology Office You Monahan 786.59 Pain Chest M., M.D., FACC Other 401.1 Hypertension Benign 414.01 Coronary Atherosclerosis [place] Office Visit 06/06/2009 11:00a Cardiology Office Marsh, Nichole 786.50 Pain Chest SAÚL Mario, Unspec [employer] 414.01 Coronary Atherosclerosis [place] 428.0 Congestive Heart Failure Unspecified 311 Depressive Disorder Not Elsewhere Spec 401.1 Hypertension Benign 785.9 Cardiovascular Symptoms Other 272.4 Hyperlipidemia Other Unspec 250.02 Diabetes Mellitus W/O Compl Type II Or Unspec Type Uncontrol Office Visit 03/20/2009 10:40a Cardiology Office You Monahan 250.02 Angelica Heaton M.D., FACC Mellitus W/O Compl Type II Or Unspec Type Uncontrol 414.9 Ischemic Heart Disease Chronic Unspec 272.4 Hyperlipidemia Other Unspec Office Visit 08/09/2008 Cardiology Nichole Marsh 414.01 Coronary 10:15a Office SAÚL Mario, Atherosclerosis [employer] [place] 433.10 Occlusion & Stenosis Carotid Artery W/O Cerebral Infarction 401.1 Hypertension Benign 272.4 Hyperlipidemia Other Unspec Office Visit 04/19/2008 Cardiology Taniya 414.01 Coronary 9:15a Office You Heaton M.D., Atherosclerosis FACC [place] 250.02 Diabetes Mellitus W/O Compl Type II Or Unspec Type Uncontrol Office Visit 02/23/2008 Cardiology Taniya, 414.01 Coronary 10:15a Office You Heaton M.D., Atherosclerosis FACC [place] 443.9 Peripheral Vascular Disease Unspec Office Visit 02/07/2008 Cardiology Taniya 414.01 Coronary 10:15a Office You Heaton M.D., Atherosclerosis FACC [place] 785.9 Cardiovascular Symptoms Other 401.1 Hypertension Benign 272.4 Hyperlipidemia Other Unspec Office Visit 09/28/2007 Cardiology Taniya, 414.01 Coronary 10:15a Office You Heaton M.D., Atherosclerosis FACC [place] 414.9 Ischemic Heart Disease Chronic Unspec Office Visit 09/22/2007 Cardiology Taniya, 794.30 Cardiovascular 1:15p Office You Heaton M.D., Function Study FACC Unspec Abnormal 786.50 Pain Chest Unspec 401.1 Hypertension Benign 272.4 Hyperlipidemia Other Unspec Plan of Treatment Future Appointment(s):10/25/2018 2:15 pm - Annamaria Madrigal MD at Cardiology [facility]9507/21/2018 - Annamaria Madrigal MDI25.10 Atherosclerotic heart disease of [place] coronary artery withComments:Chronic stable CAD. No signs or symptoms of ischemia.Z01.810 Encounter for preprocedural cardiovascular examinationComments: Despite her arthritis limitations she exercises every day with a assistant athletic trainer and goes to PT. She is able [...] usually runs around 120'/60'. No changes made fbfieS52.110 Hereditary hemochromatosisComments:Had Echo 09/2017 with no evidence for restriction or LV dysfunction.Will hold off additional testingat this time.AllFollow up:3 months Sooner appt if symptoms arise.
--- OUTSIDE RECORDS SUMMARY | 2018-08-10 06:44 | XMS REPORT | Continuity of Care Document ---
:1950 External Reference #:[id number] Author Name Annamaria Madrigal MD Address [address] [place] [address] Care Team Providers Name Role Phone Jason Mercado MD Care Team Information Pmo Project Manager Unavailable Jason Mercado MD Primary Care Physician Unavailable Payers Type Date Identification Numbers Payment Provider Subscriber Effective: Policy Number: [id number] [employer] Eufemia Smith 2016 Expires: 2017 PayID: [id number] [address] [place] [address] Policy Number: [id number] Tod[employer] [facility] Eufemia Smith PayID: [id number] [address] [address] [place] [address] Advance Directives Description No Information Available Problems [...] 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, Active telida coronary artery with other M.DYung, FACC forms of angina pectoris Onset: 03/09/2015 Essential hypertension You Monahan Active M.Sumit, FACC Onset: 04/04/2015 Essential hypertension Nichole Marsh, Active MSN, [employer] Onset: 04/19/2015 Carotid artery occlusion Nichole Marsh, Active MSN, [employer] Onset: 10/25/2015 Malaise and fatigue You Monahan [...] Losartan Potassium 01/14 Active Tablets 25mg 45tab 1/2 tab by Rohan s mouth every MD Annamaria Cpap 09/17 Active everynight Teresa You M.D., [facility] Nitrostat 03/14 Active Tablets 0.4mg 25tab 1 tab sl Rohan Sub s every 5 min MD Annamaria x3 chest pain Atorvastatin 08/03 Active Tablets 40mg 90tab take one I25.118 Constantinoenko Calcium s tablet by , You mouth every M., M.D., day [facility] Amlodipine 06/17 Active Tablets 10mg 90tab take one I10 Davidenko Besylate s tablet by , You mouth every M., M.D., day [facility] Fenofibrate 03/12 Active Tablets 54mg 90tab take one E78.1 Davidenko s tablet by You mouth every M., M.D., day [facility] Aspirin Active Tablets 81mg 1 po qd You HADLEY M.D., [facility] Lantus Solostar Active Solution 150Unit/M 40 u in Unknown L morning 30 U hs Ambien Active Tablets 10mg 30tab 1 tab po s qpm Ranexa Active Tablets 1000mg 180ta take one ER 12HR bs tablet by , You mouth twice M., M.D., a day [facility] Lasix Active Tablets 20mg 1 by [...] Tablet By You Every Vargas Heaton, Day [facility] Spironolactone Active Tablets 50mg 1 by [...] s every day , You Heaton M.D., [facility] Lisinopril 06/20 Hx Tablets 20mg 90tab 1 by mouth s every day , You Heaton M.D., [facility] Valsartan 05/12 Hx Tablets 80mg 30tab 1 by mouth Marsh, s every day Nichole Mario 06/20 , MSN, /2015 [employer] Benicar HCT 04/30 Hx Tablets 20-12.5mg 30tab 1 by mouth I10 Marsh s every day Nichole Mario , MSN, [facility] Irbesartan 05/01 Hx Tablets 75mg 90tab Take One I10 Rohan s Tablet By MD Annamaria - Mouth Every Furosemide 04/19 Hx Tablets 20mg 150ta 1 by mouth R60.9 Rohan, bs every day MD Annamaria with extra 1/2 tablet as needed edema Medrol (Byron) 04/04 Hx Tablets 4mg 1pack one pack M79.604 Marsh with dosage Nichole titration Fabiano schedule as , MSN, included [facility] Lexapro 03/14 Hx Tablets 10mg 30tab 1 by mouth s every day , You Heaton M.D., [facility] Furosemide 01/08 Hx Tablets 20mg 30tab Take One R60.9 Rohan s Tablet By MD Annamaria - Mouth Every 04/19 Day as Needed Isosorbide 12/13 Hx Tablets 60mg 30tab take one Jovani, Mononitrate ER 24HR s tablet by Marlyss - mouth every B., PA Lasix 11/01 Hx Tablets 20mg 90tab 1 [...] by You mouth every MVargas Barragan, day [facility] Pravachol 03/25 Hx Tablets 40mg 90tab 1 po qd s Tera Mi - , PhD 04/19 Pravachol 02/26 Hx Tablets 80mg 90tab 1 po q day s Antionette Canada MD, PhD 03/25 Effient 09/17 Hx Tablets 10mg 90tab 1 po qd s Tera Mi MD, PhD Imdur 06/25 Hx Tablets 60mg 90tab one po qd ER 24HR s Antionette Canada MD, PhD 12/13 Imdur 06/24 Hx Tablets 30mg 90tab po qd ER 24HR s You M.D., 06/25 [facility] Benicar 03/12 Hx Tablets 20mg 90tab 1 by mouth 401.1 s every other Antionette Canada MD, PhD 10/09 Spironolactone 03/07 Hx Tablets 25mg 90tab 1/2 by 401.1 s mouth every shailesh Canada MD, PhD Carvedilol 03/07 Hx Tablets 3.125mg 135ta Take One I25.118 bs Tablet By You Three MVargas Barragan, Times A Day [facility] Potassium Chloride 09/19 Hx Capsules 10Meq 30cap po qd Constantinoenko ER s You M.D., 03/07 [facility] Furosemide 03/22 Hx Tabs 20mg 90tab Take 1 s Tablet By , You - Mouth Every MVargas Barragan, 03/07 Day as [facility] Needed For Edema Atenolol 03/22 Hx Tabs 50mg 90tab Take 12 414.01 Constantino s Tablet PO , You - bid Vargas Heaton, 03/07 [facility] Atenolol 03/08 Hx Tablets 25mg 1/2 by Teresa mouth twice You a day Vargas Heaton, [facility] Ranexa 02/25 Hx Tablets 500mg 60tab Take One ER 12HR s Tablet By You Mouth Twice Vargas Heaton, A Day [facility] Ativan 06/06 Hx Tablets 0.5mg 90tab 1 po q8h 311 Marsh, s prn Nichole Mario , MSN, [employer] Lexapro 06/06 Hx Tablets 10mg 45tab 1 and 06/30 311 Davidson, s po qd Tera Mi MD, PhD Lasix 06/06 Hx Tablets 20mg 30tab 1 tab po qd 428.0 Marsh, s prn edema Nichole Mario , MSN, [employer] Benicar HCT 06/06 Hx Tablets 20-12.5mg 30tab Take 1 401.1 s Tablet By , You - Mouth Every MVargas Barragan, 03/12 Day [facility] Amlodipine Hx Tablets 10mg 30tab 1 po qd Teresako Besylate / s You M.D., 03/07 [facility] Atenolol Hx Tablets 50mg 90tab 1 1/2 tabs Davidenko / s po qam and , You - 1 qpm Vargas Heaton, 03/08 [facility] Folic Acid Hx Tablets 1mg 90tab 1 po qd Davidenko / You ruiz M.D., [facility] Ambien CR Hx Tablets 12.5mg 30tab po qod prn Marsh, ER s Nichole - Fabiano 08/21 , MSN, [employer] Hydrochlorothiazid Hx Tablets 25mg 90tab 1 po qd 401.1 Taniya You ruiz M.D., 06/06 [facility] Aspirin Ec Hx Tablets 325mg 1 po qd David You HADLEY M.D., [facility] Nitroglycerin Hx Tablets 0.4mg 1 tab prn Teresa You Downey M.D., [facility] Lantus Hx Solution 100Unit/M 70 units sq Constantinoen L qpm You M.D., 08/27 [facility] Humalog Hx Solution 100Unit/M 18 units Davidenko /0000 L bid,15 , You units qpm Vargas Heaton, [facility] Lipitor Hx Tablets 20mg 90tab 2 po qd Davidson s Tera Mi MD, PhD Metformin HCL ER Hx Tablets 500mg po bid Daviden ER 24HR , You Heaton M.D., [facility] Ambien Hx Tablets 10mg 30tab 1 tab po qd Davdison s prn Tera Mi MD, PhD Isosorbide Hx Tablets 30mg 90tab 1 po qd Davidenko Mononitrate ER ER 24HR You ruiz M.D., 03/07 [facility] Fish Oil Hx Capsules 1000mg po qd Constantinoen You M.D., [facility] Potassium Chloride Hx Capsules 10Meq po qd Marsh, ER Nichole - Simonetta 09/19 , MSN, /2010 [employer] Plavix Hx Tabs 75mg 30tab Take 1 Teresa s Tablet By You Every Vargas Heaton, Day [facility] Humalog Kwikpen Hx Solution 100Unit/M as directed /0000 L Lexapro Hx Tablets 10mg 1 [...] Atorvastatin Hx Tablets 40mg 90tab take 1 Calcium s tablet once nehemiah Canada MD, [...] 05/01/2015 mouth every Nichole day Fabiano, MSN, [employer] Benicar Hx Tablets 20mg 1 by mouth Unknown every day Valsartan - Hx Tablets 80mg 90tabs 1 by mouth Taniya, 03/26/2017 every day You Heaton M.D., [facility] Valsartan - Hx Tablets 40mg 90tabs 1 by mouth Taniya, 01/14/2018 every day You Heaton M.D., [facility] Immunizations Description No Information Available Vital Signs Date Vital Result Comment 07/21/2018 2:33pm BP Systolic Sitting Left Arm 150 mmHg BP Diastolic Sitting Left Arm 48 mmHg Heart Rate 66 /min Respiratory Rate 16 /min Height 62 inches 5'2" Weight 198.00 lb BMI (Body Mass Index) 36.2 kg/m2 BSA (Body Surface Area) 1.90 m2 [place] body weight in kilograms 50 kg O2 % BldC Oximetry 97 % 09/17/2017 1:36pm BP Systolic Sitting Left Arm 128 mmHg BP Diastolic Sitting Left Arm 58 mmHg Heart Rate 64 /min Respiratory Rate 16 /min Height 62 inches 5'2" Weight 205.00 lb BMI (Body Mass Index) 37.5 kg/m2 BSA (Body Surface Area) 1.93 m2 [place] body weight in kilograms 50 kg 03/26/2017 2:48pm BP Systolic Sitting Right Arm 132 mmHg BP Diastolic Sitting Right Arm 64 mmHg Heart Rate 72 /min Respiratory Rate 16 /min Height 62 inches 5'2" Weight 206.00 lb BMI (Body Mass Index) 37.7 kg/m2 BSA (Body Surface Area) 1.94 m2 [place] body weight in kilograms 50 kg 10/06/2016 8:19am BP Systolic Sitting Left Arm 132 mmHg BP Diastolic Sitting Left Arm 66 mmHg Heart Rate 72 /min Respiratory Rate 18 /min Height 62 inches 5'2" Weight 200.00 lb BMI (Body Mass Index) 36.6 kg/m2 BSA (Body Surface Area) 1.91 m2 [place] body weight in kilograms 50 kg 04/30/2016 [...] Result H/L Range Note Basic Metabolic 12/14/2016 [facility] Glucose 199 mg/dL High 74-106 1 Panel [address] [place], [place] [id number] [phone] BUN 42 mg/dL High 7-18 Creatinine 1.3 mg/dL N 0.6-1.3 Glom Filtration Rate, Estimate 44 mL/min >60 If 53 mL/min >60 2 BUN/Creat 32.3 ratio Sodium 141 mmol/L N 136-145 Potassium 5.1 mmol/L N 3.5-5.1 Chloride 106 mmol/L N 98-107 Carbon Dioxide 26 mmol/L N 21-32 Anion Gap 9 mEq/L N 8-16 Calcium 9.2 mg/dL N 8.5-10.1 Basic Metabolic Panel 05/08/2016 [facility] Glucose 114 mg/dL High 74-106 3 [address] [place], [place] [address] [phone] BUN 13 mg/dL N 7-18 Creatinine 0.8 mg/dL N 0.6-1.3 Glom Filtration Rate, Estimate >60 mL/min N >60 If >60 mL/min N >60 4 BUN/Creat 16.2 ratio N Sodium 141 mmol/L N 136-145 Potassium 4.1 mmol/L N 3.5-5.1 Chloride 105 mmol/L N 98-107 Carbon Dioxide 28 mmol/L N 21-32 Anion Gap 8 mEq/L N 8-16 Calcium 9.3 mg/dL N 8.5-10.1 Laboratory test 10/30/2014 [facility] Troponin-I < 0.015 ng/mL 5 finding [address] [place] [address] [phone] Laboratory test 10/30/2014 [facility] Troponin-I < 0.015 ng/mL 6 finding [address] [place] [address] [phone] Hemoglobin/Hematocr 12/13/2013 [facility] Hemoglobin 12.8 gm/dL 11.6-15. it [address] [address] [phone] Hematocrit 34.9 % Low 36.0-46.1 LDL Cholesterol 06/30/2013 [facility] Cholesterol 202 mg/dL High 120-200 Profile [address] [place] [address] [phone] Triglycerides 395 mg/dL High 16-231 HDL Cholesterol 39 mg/dL 29-83 LDL-Cholesterol 84 mg/dL 62-185 Liver Function Tests 06/30/2013 [facility] Total Protein 7.8 g/dL 6.3-8.0 [address] [place] [address] [phone] Albumin 3.8 g/dL 3.5-5.0 Globulin 4.0 g/dL 1.9-4.3 Alb/Glob 1.0 ratio Bilirubin,Total 0.5 mg/dL 0.2-1.2 Bilirubin,Direct 0.1 mg/dL 0.1-0.4 Bilirubin,Indirect 0.4 mg/dL 0.0-0.9 Sgot/Ast 22 U/L 16-40 SGPT/Alt 45 U/L 30-65 Alkaline Phosphatase 135 U/L 50-136 Iron-Tibc-%Sat 06/30/2013 [facility] Serum Iron 137 g/dL 25-156 [address] [place], [place] [address] [phone] Total Iron Binding Capacity 307 g/dL 245-419 Transferrin %Saturation 45 % 12-57 Comprehensive Metabolic 06/30/2013 [facility] Glucose 212 mg/dL High 76-115 Panel [address] [place], [place] [address] [phone] BUN 12 mg/dL 5-23 Creatinine 0.7 mg/dL [...] 135 U/L 50-136 Laboratory test finding 06/30/2013 [facility] CK 49 U/L 26-190 [address] [place] [address] [phone] Ferritin 56.9 ng/mL 3-105 Glycohemoglobin 06/30/2013 [facility] Glycohemoglobin 9.8 % High 4.8-6.0 8 A1c 134 [facility] (A1c) [place] [address] [phone] eAG 235 mg/dL Microalbumin,Random 06/30/2013 [facility] Microalbumin,Urine 380.0 High 0.0- 18.5 Urine 134 [facility] mg/[place] [address] [phone] Urine Screen 01/21/2013 [facility] Urine Color YELLOW Yellow [address] [place] [address] [phone] Urine Clarity CLEAR Clear Urine Glucose - Dipstick >=1000 mg/dL High Negative Urine Bilirubin - Dipstick NEGATIVE Negative Urine Ketone NEGATIVE mg/dL Negative Urine Specific Lewis 1.020 1.010-1.030 Urine Blood NEGATIVE Negative Urine PH 5.5 Low 6.5-7.5 Urine Protein - Dipstick NEGATIVE mg/dL Negative Urine Urobilinogen - Dipstick 0.2 E.U./dL 0.2-1.0 Urine Nitrite - Dipstick NEGATIVE Negative Urine Leuk Esterase NEGATIVE Negative CBC 01/21/2013 [facility] White Blood Count 6.8 K/uL 3.1-10.7 [address] [place], [place] [address] [phone] Red Blood Count 4.29 M/uL 3.90-5.40 Hemoglobin 13.9 gm/dL 11.6-15.8 Hematocrit 38.6 % 36.0-46.1 Mean Cell Volume 90.0 fl 80.9-99.0 Mean Corpuscular HGB 32.4 pg 25.9-32.7 Mean Corpuscular HGB Conc 36.0 g/dL High 30.8-34.3 Platelet Count 220 K/uL 155-360 Red Cell Distri Width %CV 12.5 % 11.7-14.4 Mean Platelet Volume 11.8 fL 8.9-12.4 Basic Metabolic Panel 01/21/2013 [facility] Glucose 397 mg/dL High 76-115 [address] [place], [place] [id number] [phone] BUN 21 mg/dL 5-23 Creatinine 0.8 mg/dL 0.5-1.4 Glom Filtration Rate, Estimate >60 mL/min >60 If >60 mL/min >60 9 BUN/Creat 26.2 ratio Sodium 135 mmol/L Low 136-145 Potassium 4.2 mmol/L 3.5-5.1 Chloride 101 mmol/L 98-107 Carbon Dioxide 24 mEq/L 18-29 Anion Gap 14 mEq/L 8-16 Calcium 9.2 mg/dL 8.5-10.1 Basic Metabolic Panel 01/03/2013 [facility] Glucose 461 mg/dL High 76-115 [address] [place], [place] [address] [phone] BUN 17 mg/dL 5-23 Creatinine 1.1 mg/dL 0.5-1.4 Glom Filtration Rate, Estimate 54 mL/min >60 If >60 mL/min >60 10 BUN/Creat 15.4 ratio Sodium 137 mmol/L 136-145 Potassium 4.4 mmol/L 3.5-5.1 Chloride 99 mmol/L 98-107 Carbon Dioxide 24 mEq/L 18-29 Anion Gap 18 mEq/L High 8-16 Calcium 9.2 mg/dL 8.5-10.1 Laboratory test 01/03/2013 [facility] Ferritin 52.5 ng/mL 3-[address] [place], [place] [id number] [phone] Rubella IgG 05/04/2012 [facility] Rubella IgG > 500.0 >=10.0 [address] Iu/ml IU/[place] [address] [phone] Laboratory test 05/04/2012 [facility] Mumps 4.60 index High 0.00-0.90 [address] Antibodies, [place] [address] Igg [phone] Rubella IgG Antibody Reactive Reactive Rubeola Antibodies, Igg 6.75 index High 0.00-0.90 13 LDL Cholesterol 04/20/2012 [facility] Cholesterol 205 mg/dL High 120-200 Profile [address] [place] [address] [phone] Triglycerides 513 mg/dL High 16-231 HDL Cholesterol 32 mg/dL 29-83 LDL-Cholesterol See Note mg/dL 62-185 14 Laboratory test 04/20/2012 [facility] Bilirubin,Direct 0.1 mg/dL 0.1-0.[address] [place] [address] [phone] CK 55 U/L 26-190 Ferritin 108.5 ng/mL High 3-105 Hemoglobin/Hematocrit 04/20/2012 [facility] Hemoglobin 13.8 11.6-15.[address] gm/[place] [address] [phone] Hematocrit 38.7 % 36.0-46.1 Glycohemoglobin 04/20/2012 [facility] Glycohemoglobin 11.1 % High 4.8-6.0 15 A1c [address] [facility] (A1c) [place] [address] [phone] eAG 272 mg/dL Iron-Tibc-%Sat 04/20/2012 [facility] Serum Iron 111 g/dL 25-156 [address] [place] [address] [phone] Total Iron Binding Capacity 336 g/dL 245-419 Transferrin %Saturation 33 % 12-57 Comprehensive Metabolic 04/20/2012 [facility] Glucose 265 mg/dL High 76-115 Panel [address] [place] [address] [phone] BUN 17 mg/dL 5-23 Creatinine 0.8 mg/dL [...] Alkaline Phosphatase 101 U/L 50-136 Hemoglobin/Hematocrit 01/22/2012 [facility] Hemoglobin 13.6 11.6-15.8 [address] gm/[place] [address] [phone] Hematocrit 38.4 % 36.0-46.1 Liver Function Tests 01/22/2012 [facility] Total Protein 7.8 g/dL 6.3-8.0 [address] [place] [address] [phone] Albumin 3.8 g/dL 3.5-5.0 Globulin 4.0 g/dL 1.9-4.3 Alb/Glob 1.0 ratio Bilirubin,Total 0.4 mg/dL 0.2-1.2 Bilirubin,Direct < 0.1 mg/dL Low 0.1-0.4 Bilirubin,Indirect 0.3 mg/dL 0.0-0.9 Sgot/Ast 22 U/L 16-40 SGPT/Alt 52 U/L 30-65 Alkaline Phosphatase 102 U/L 50-136 Basic Metabolic Panel 01/22/2012 [facility] Glucose 190 mg/dL High 76-[address] [place], [place] [address] [phone] BUN 16 mg/dL 5-23 Creatinine 0.7 mg/dL 0.5-1.4 Glom Filtration Rate, Estimate >60 mL/min >60 If >60 mL/min >60 17 BUN/Creat 22.8 ratio Sodium 136 mmol/L 136-145 Potassium 4.1 mmol/L 3.5-5.1 Chloride 103 mmol/L 98-107 Carbon Dioxide 26 mEq/L 18-29 Anion Gap 11 mEq/L 8-16 Calcium 9.3 mg/dL 8.5-10.1 LDL Cholesterol 01/22/2012 [facility] Cholesterol 180 mg/dL 120-200 Profile [address] [place], [place] [address] [phone] Triglycerides 329 mg/dL High 16-231 HDL Cholesterol 35 mg/dL 29-83 LDL-Cholesterol 79 mg/dL 62-185 Laboratory test 01/22/2012 [facility] Ferritin 84.3 3-[address] ng/mL [place], [place] [id number] [phone] Glycohemoglobin 01/22/2012 [facility] Glycohemoglobin 10.2 % High 4.8-6.0 [address] (A1c) [place], [place] [address] [phone] eAG 246 mg/dL Glycohemoglobin 07/24/2011 [facility] Glycohemoglobin 10.7 % High 4.8-6.0 [address] (A1c) [place] [address] [phone] eAG 260 mg/dL Liver Function Tests 07/24/2011 [facility] Total Protein 7.3 g/dL 6.3-8.[address] [place] [address] [phone] Albumin 3.6 g/dL 3.5-5.0 Globulin 3.7 g/dL 1.9-4.3 Alb/Glob 1.0 ratio Bilirubin,Total 0.3 mg/dL 0.2-1.2 Bilirubin,Direct < 0.1 mg/dL Low 0.1-0.4 Bilirubin,Indirect 0.2 mg/dL 0.0-0.9 Sgot/Ast 22 U/L 16-40 SGPT/Alt 48 U/L 30-65 Alkaline Phosphatase 81 U/L 50-136 LDL Cholesterol 07/24/2011 [facility] Cholesterol 165 mg/dL 120-200 Profile [address] [place] [address] [phone] Triglycerides 233 mg/dL High 16-231 HDL Cholesterol 36 mg/dL 29-83 LDL-Cholesterol 82 mg/dL 62-185 Laboratory test finding 07/24/2011 [facility] CK 57 U/L 26-190 [address] [place] [address] [phone] CK Isoenzymes,Serum 07/24/2011 [facility] CK,Total 55 U/L 24-173 [address] [place] [address] [phone] Macro II 0 NotObserved% CK-mm 100 % 97-100 Macro I 0 NotObserved% CK-MB 0 % 0-3 CK-BB 0 % 0 20 CBS W/Automated Diff 06/02/2011 [facility] White Blood 6.6 K/uL 3.1-10.7 [address] [place] [address] [phone] Red Blood Count 4.29 M/uL 3.90-5.40 Hemoglobin 13.9 gm/dL 11.6-15.8 Hematocrit 38.7 % 36.0-46.1 Mean Cell Volume 90.2 fl 80.9-99.0 Mean Corpuscular HGB 32.4 pg 25.9-32.7 Mean Corpuscular HGB Conc 35.9 g/dL High 30.8-34.3 Platelet Count 210 K/uL 155-360 Red Cell Distri Width %CV 12.1 % 11.7-14.4 Mean Platelet Volume 11.7 fL 8.9-12.4 Neut% 62.1 % 40.4-72.8 Lymph % 25.1 % 17.0-46.1 [place] % 8.2 % 4.3-13.2 Eo% 2.9 % 0.0-6.6 Bas% 1.7 % High 0.0-1.1 Neut# 4.08 K/uL 1.0-7.0 Lymph # 1.65 K/uL 0.8-3.4 Tre[place]len # 0.54 K/uL 0.3-0.9 Eos # 0.19 K/uL 0.0-0.5 Baso # 0.11 K/uL High 0.0-0.1 Red Cell Distri Width SD 39.0 fl 3-47 Protime 06/02/2011 [facility] Protime 13.6 seconds 12.2-15.2 [address] [place] [address] [phone] Inr 1.0 0.9-1.1 21 Liver Function 04/28/2011 [facility] Total Protein 8.1 g/dL High 6.3-8.0 Tests [address] [place] [address] [phone] Albumin 4.0 g/dL 3.5-5.0 Bilirubin,Total 0.5 mg/dL 0.2-1.2 Bilirubin,Direct 0.1 mg/dL 0.1-0.4 Bilirubin,Indirect 0.4 mg/dL 0.0-0.9 Sgot/Ast 30 U/L 16-40 SGPT/Alt 49 U/L 30-65 Alkaline Phosphatase 99 U/L 50-136 Globulin 4.1 g/dL 1.9-4.3 Alb/Glob 1.0 ratio LDL Cholesterol 04/28/2011 [facility] Cholesterol 183 mg/dL 120-200 Profile [address] [place], [place] [address] [phone] Triglycerides 290 mg/dL High 16-231 HDL Cholesterol 39 mg/dL 29-83 LDL-Cholesterol 86 mg/dL 62-185 Laboratory test 04/28/2011 [facility] CK 91 U/L 26-190 finding [address] [place] [address] [phone] Laboratory test 03/26/2011 [facility] CK <pending> finding [address] [place] [address] [phone] LDL Cholesterol 03/07/2011 [facility] Cholesterol 183 mg/dL 120-200 Profile [address] [place] [address] [phone] Triglycerides 715 mg/dL High 16-231 HDL Cholesterol 29 mg/dL 29-83 LDL-Cholesterol See Note mg/dL 62-185 22 Comprehensive Metabolic 03/07/2011 [facility] Glucose 309 mg/dL High 76-115 Panel [address] [place], [place] [address] [phone] BUN 15 mg/dL 5-23 Creatinine 0.6 mg/dL [...] 128 U/L 50-136 Basic Metabolic Panel 03/08/2010 [facility] Glucose 199 mg/dL High 76-115 [address] [place] [address] [phone] BUN 19 mg/dL 5-23 Creatinine 0.8 mg/dL 0.5-1.4 Glom Filtration Rate, Estimate >60 mL/min >60 If >60 mL/min >60 24 BUN/Creat 23.7 Sodium 137 mEq/L 136-145 Potassium 4.2 mEq/L 3.5-5.1 Chloride 100 mEq/L 98-107 Carbon Dioxide 31 mEq/L 21-32 Anion Gap 10 mEq/L 8-16 Calcium 8.6 mg/dL 8.5-10.1 LDL Cholesterol 03/08/2010 [facility] Cholesterol 140 mg/dL 120-200 Profile [address] [place] [address] [phone] Triglycerides 124 mg/dL 0-210 HDL Cholesterol 35 mg/dL 32-96 LDL-Cholesterol 80 mg/dL 62-185 Liver Function Tests 03/08/2010 [facility] Total Protein 7.5 g/dL 6.3-8.0 [address] [place] [address] [phone] Albumin 3.6 g/dL 3.5-5.0 Bilirubin,Total 0.5 mg/dL 0.2-1.2 Bilirubin,Direct 0.1 mg/dL 0.1-0.4 Bilirubin,Indirect 0.4 mg/dL 0.0-0.9 Sgot/Ast 25 U/L 16-40 SGPT/Alt 54 U/L 30-65 Alkaline Phosphatase 139 U/L High 50-136 Globulin 3.9 gm/dL 1.9-4.3 Alb/Glob 0.9 Laboratory 03/08/2010 [facility] Glycohemoglobin A1c 10.2 % High 4.8-6.0 25 test finding [address] [place] [address] [phone] Ferritin 31.0 ng/mL 3-105 26 CBS W/Automated Diff 03/08/2010 [facility] White Blood 6.7 K/uL 3.1-10.7 134 [facility] [place] [address] [phone] Red Blood Count 4.06 M/uL 3.90-5.40 Hemoglobin 12.6 gm/dL 11.6-15.8 Hematocrit 37.5 % 36.0-46.1 Mean Cell Volume 92.4 fl 80.9-99.0 Mean Corpuscular HGB 31.0 pg 25.9-32.7 Mean Corpuscular HGB Conc 33.6 g/dL 30.8-34.3 Platelet Count 166 K/uL 155-360 Red Cell Distri Width %CV 13.5 % 11.7-14.4 Mean Platelet Volume 12.5 fL High 8.9-12.4 Neut% 55.0 % 40.4-72.8 Lymph % 29.2 % 17.0-46.1 [place] % 9.7 % 4.3-13.2 Eo% 5.1 % 0.0-6.6 Bas% 1.0 % 0.0-1.1 Neut# 3.7 K/uL 1.0-7.0 Lymph # 2.0 K/uL 0.8-3.4 [place] # 0.7 K/uL 0.3-0.9 Eos # 0.3 [...] when active infection is suspected. Performed at: - [facility] [address] [id number] Phlebotomy Support Tech: Baylee Jules MD, Phone: [phone] 13 Negative <0.91 Equivocal 0.91 - 1.09 [...] test. 20 Performed at: RN - [facility] [address] [id number] Phlebotomy Support Tech: Gavin Miller MD, Phone: [phone] THERAPEUTIC INR RANGE: 2.0 - 3.0 [...] 8816 Procedures Date Code Description Status 07/21/2018 93576 EKG-Tracing And Report Completed 10/12/2017 04466 Echocardiogram Complete Completed 10/12/2017 75263 EKG-Tracing And Report Completed 09/17/2017 74577 EKG-Tracing And Report Completed 03/26/2017 11132 EKG-Tracing And Report Completed 12/16/2016 33980 Stress Test Interpre And Report Only Completed 12/16/2016 53785 Stress Test Physician Super Only Completed 12/16/2016 01391 Myocardial Imaging Tomographic Multiple Study AT Rest Or Completed Stress 10/06/2016 38171 EKG-Tracing And Report Completed 05/08/2016 38418 Echocardiogram Complete Completed 04/19/2015 82068 Event Monitor Inter/Review Only Completed 10/09/2014 25 Disability Form Completed 06/28/2014 65511 Myocardial Imaging Tomographic Multiple Study AT Rest Or Completed Stress 06/28/2014 86339 Stress Test Physician Super Only Completed 06/28/2014 20991 Stress Test Physician Super Only Completed 06/28/2014 98179 Stress Test Interpre And Report Only Completed 06/28/2014 14531 Echocardiogram Complete Completed 06/15/2014 16793 EKG-Tracing And Report Completed 06/14/2014 85564 Radiology, Shoulder: Two Views (Sso) Completed 09/12/2013 64161 Holter Monitor 24HR Inter/Report Completed 03/02/2013 40897 EKG-Tracing And Report Completed 01/21/2013 49075 EKG Interpretation And Report Only Completed 01/26/2012 61807 Myocardial Imaging Tomographic Multiple Study AT Rest Or Completed Stress 01/26/2012 04257 Stress Test Physician Super Only Completed 01/26/2012 95258 Stress Test Physician Super Only Completed 01/26/2012 16042 Stress Test Interpre And Report Only Completed 06/17/2011 67785 EKG-Tracing And Report Completed 05/05/2011 27669 Stress Test Interpre And Report Only Completed 05/05/2011 74034 Stress Test Physician Super Only Completed 05/05/2011 03256 Myocardial Imaging Tomographic Multiple Study AT Rest Or Completed Stress 08/27/2010 42843 EKG-Tracing And Report Completed 03/08/2010 50572 Echocardiogram Complete Completed 02/28/2010 07732 Stress Test Interpre And Report Only Completed 02/28/2010 75610 Stress Test Physician Super Only Completed 02/28/2010 50750 Myocardial Imaging Tomographic Multiple Study AT Rest Or Completed Stress 06/08/2009 14635 Cardiolite Stress/Rest Spect Completed 06/08/2009 40362 Myocardial Wall Motion Completed 06/08/2009 77994 Ejection Fraction Completed 06/08/2009 09373 Stress Test Physician Super Only Completed 06/08/2009 73531 Stress Test Interpre And Report Only Completed 03/20/2009 74448 EKG-Tracing And Report Completed 04/27/2008 51902 Stress Test Interpre And Report Only Completed 04/27/2008 39244 Stress Test Physician Super Only Completed 04/24/2008 98480 Doppler ECHO Color Flow Mapping Completed 04/24/2008 00869 Doppler Echocardiogram Complete Completed 04/24/2008 91121 Echocariogram 2D Complete Completed 09/28/2007 26911 EKG-Tracing And Report Completed 09/22/2007 11405 EKG-Tracing And Report Completed Encounters Type Date Location Provider Dx Diagnosis Office Visit 07/21/2018 Cardiology Office Annamaria Madrigal MD I25.10 Athscl heart 2:15p disease of telida coronary artery w/o ang pctrs Z01.810 Encounter for preprocedural cardiovascular examination I10 Essential (primary) hypertension E83.110 Hereditary hemochromatosis Office Visit 09/17/2017 1:40p Cardiology You Monahan R07.9 Chest pain, Office MVargas Barragan, FACC unspecified I25.10 Athscl heart disease of tel[place] coronary artery w/o ang pctrs I10 Essential (primary) hypertension E83.110 Hereditary hemochromatosis I65.29 Occlusion and stenosis of unspecified carotid artery Z01.810 Encounter for preprocedural cardiovascular examination Office Visit 03/26/2017 2:20p Cardiology You Monahan R07.9 Chest pain, Office Vargas Heaton, [facility] unspecified I25.10 Athscl heart disease of telida coronary artery w/o ang pctrs I10 Essential (primary) hypertension Z01.810 Encounter for preprocedural cardiovascular examination Office Visit 12/15/2016 9:35a Cardiology Office Annamaria Madrigal, I20.0 Unstable angina MD Office Visit 10/06/2016 8:00a Cardiology Office Taniya I65.29 Occlusion and You Sudarshan, stenosis of M.DYung, [facility] unspecified carotid artery I25.10 Athscl heart disease of telida coronary artery w/o ang pctrs I10 Essential (primary) hypertension E11.65 Type 2 diabetes mellitus with hyperglycemia E83.110 Hereditary hemochromatosis Office Visit 04/30/2016 2:00p Cardiology Office Nichole Marsh I25.10 Athscl heart Fabiano, SAÚL, disease of [facility] telida coronary artery w/o ang pctrs E78.2 Mixed hyperlipidemia I65.29 Occlusion and stenosis of unspecified carotid artery I10 Essential (primary) hypertension E11.65 Type 2 diabetes mellitus with hyperglycemia R01.1 Cardiac murmur, unspecified Office Visit 10/25/2015 3:20p Cardiology Office You Monahan R53.83 Other fatigue Vargas Heaton, [facility] I25.10 Athscl heart disease of telida coronary artery w/o ang pctrs E78.2 Mixed hyperlipidemia E11.65 Type 2 diabetes mellitus with hyperglycemia R60.9 Edema, unspecified E83.110 Hereditary hemochromatosis Office Visit 04/19/2015 2:00p Cardiology Office Nichole Marsh R00.2 Palpitations Fabiano, MSN, [facility] I25.10 Athscl heart disease of telida coronary artery w/o ang pctrs I65.29 Occlusion and stenosis of unspecified carotid artery I10 Essential (primary) hypertension E78.2 Mixed hyperlipidemia E11.65 Type 2 diabetes mellitus with hyperglycemia R60.9 Edema, unspecified Office Visit 04/04/2015 8:45a Cardiology Office Nichole Marsh M79.604 Pain in Fabiano, MSN, right leg [employer] I25.118 Athscl heart disease of tel[place] cor art w ot ang pctrs I10 Essential (primary) hypertension E78.2 Mixed hyperlipidemia I65.29 Occlusion and stenosis of unspecified carotid artery Office Visit 03/09/2015 1:00p Cardiology Office You Monahan I25.118 [facility] heart Vargas Heaton, FACC disease of telida cor art w ot ang pctrs I10 Essential (primary) hypertension E11.65 Type 2 diabetes mellitus with hyperglycemia E78.2 Mixed hyperlipidemia Office Visit 10/30/2014 2:08p [facility] Gama Macario, 786.50 [facility] MMihir Unspec Office Visit 09/27/2014 10:30a Orthopaedic Office Sg Mayer, 840.4 Sprains & M.D. Strains Rotator Cuff (Capsule) 719.41 Pain Joint Shoulder Region Office Visit 08/03/2014 Cardiology Taniya 414.01 Coronary 11:20a Office You Heaton M.D., Atherosclerosis FACC [place] 413.9 Angina Pectoris Other Unspec 401.1 Hypertension Benign 272.2 Hyperlipidemia Mixed 250.02 Diabetes Mellitus W/O Compl Type II Or Unspec Type Uncontrol 275.01 Hereditary Hemochromatosis Office Visit 06/15/2014 Cardiology Tera Davidson 414.01 Coronary 9:40a Office MD Shmuel, PhD Atherosclerosis [place] 413.9 Angina Pectoris Other Unspec 401.1 Hypertension Benign 272.2 Hyperlipidemia Mixed 780.2 Syncope & Collapse 424.1 Aortic Valve Disorder Office Visit 06/14/2014 9:00a Orthopaedic Office Roddy Hudson 719.41 Pain Joint F.MD, FACS Shoulder Region 715.11 Osteoarthrosis Localized Prim Shoulder Region 727.61 Ruptured Rotator Cuff Complete Office Visit 09/01/2013 Cardiology Tera Davidson 414.01 Coronary 9:40a Office MD Shmuel, PhD Atherosclerosis [place] 414.01 Coronary Atherosclerosis [place] 413.9 Angina Pectoris Other Unspec 413.9 Angina Pectoris Other Unspec 401.1 Hypertension Benign 401.1 Hypertension Benign 272.2 Hyperlipidemia Mixed 272.2 Hyperlipidemia Mixed Office Visit 03/02/2013 8:54a Cardiology Tera Davidson V72.81 Examination Office MD Shmuel, PhD Preoperative Cardiovascular 840.4 Sprains & Strains Rotator Cuff (Capsule) 414.01 Coronary Atherosclerosis [place] 401.1 Hypertension Benign 272.2 Hyperlipidemia Mixed Office [...] Coronary 9:30a Office MD Shmuel, PhD Atherosclerosis [place] 401.1 Hypertension Benign 272.4 Hyperlipidemia Other Unspec 413.9 Angina Pectoris Other Unspec Office Visit 01/23/2012 Cardiology Tera Davidson 414.01 Coronary 1:00p Office MD Shmuel, PhD Atherosclerosis [place] 401.1 Hypertension Benign 272.1 Hypertriglyceridemia Pure 272.4 Hyperlipidemia Other Unspec 786.51 Pain Precordial Office Visit 07/24/2011 10:40a Cardiology Office Tera Davidson 413.9 Angina Pectoris MD Shmuel, PhD Other Unspec 414.01 Coronary Atherosclerosis [place] 401.1 Hypertension Benign 272.1 Hypertriglyceridemia Pure 272.4 Hyperlipidemia Other Unspec 275.01 Hereditary Hemochromatosis Office Visit 06/17/2011 11:00a Cardiology Office Tera Davidson 413.9 Angina Pectoris MD Shmuel, PhD Other Unspec 414.01 Coronary Atherosclerosis [place] 401.1 Hypertension Benign 272.1 Hypertriglyceridemia Pure 272.4 Hyperlipidemia Other Unspec 275.01 Hereditary Hemochromatosis Office Visit 06/02/2011 9:00a Cardiology Office Tera Davidson 413.9 Angina Pectoris MD Shmuel, PhD Other Unspec 414.01 Coronary Atherosclerosis [place] 786.59 Pain Chest Other 401.1 Hypertension Benign 272.1 Hypertriglyceridemia Pure 272.4 Hyperlipidemia Other Unspec 311 Depressive Disorder Not Elsewhere Spec Office Visit 04/28/2011 Cardiology Tera Davidson 414.01 Coronary 1:00p Office MD Shmuel, PhD Atherosclerosis [place] 786.59 Pain Chest Other 401.1 Hypertension Benign 413.9 Angina Pectoris Other Unspec 272.1 Hypertriglyceridemia Pure 272.4 Hyperlipidemia Other Unspec 311 Depressive Disorder Not Elsewhere Spec Office Visit 03/25/2011 Cardiology Tera Davidson 414.01 Coronary 2:40p Office MD Shmuel, PhD Atherosclerosis [place] 786.59 Pain Chest Other 433.10 Occlusion & Stenosis Carotid Artery W/O Cerebral Infarction 401.1 Hypertension Benign 413.9 Angina Pectoris Other Unspec 272.1 Hypertriglyceridemia Pure 272.4 Hyperlipidemia Other Unspec Office Visit 03/12/2011 Cardiology Tera Davidson 414.01 Coronary 9:00a Office MD Shmuel, PhD Atherosclerosis [place] 786.59 Pain Chest Other 433.10 Occlusion & Stenosis Carotid Artery W/O Cerebral Infarction 401.1 Hypertension Benign 413.9 Angina Pectoris Other Unspec 272.1 Hypertriglyceridemia Pure 458.9 Hypotension Unspec Office Visit 03/07/2011 Cardiology Tera Davidson 414.01 Coronary 10:40a Office MD Shmuel, PhD Atherosclerosis [place] 786.59 Pain Chest Other 433.10 Occlusion & Stenosis Carotid Artery W/O Cerebral Infarction 401.1 Hypertension Benign 413.9 Angina Pectoris Other Unspec 272.1 Hypertriglyceridemia Pure Office Visit 08/27/2010 Cardiology Taniya 414.01 Coronary 2:00p Office You Heaton M.D., Atherosclerosis FAC [place] 786.59 Pain Chest Other 433.10 Occlusion & Stenosis Carotid Artery W/O Cerebral Infarction 401.1 Hypertension Benign 272.4 Hyperlipidemia Other Unspec 250.02 Diabetes Mellitus W/O Compl Type II Or Unspec Type Uncontrol Office Visit 03/08/2010 1:00p Cardiology Office You Monahan 786.59 Pain Chest Vargas Heaton, FAC Other 414.01 Coronary Atherosclerosis [place] 433.10 Occlusion & Stenosis Carotid Artery W/O Cerebral Infarction 780.79 Malaise And Fatigue Other Office Visit 09/17/2009 1:20p Cardiology Office You Monahan 786.59 Pain Chest Vargas Heaton, FAC Other 401.1 Hypertension Benign 414.01 Coronary Atherosclerosis [place] 311 Depressive Disorder Not Elsewhere Spec 785.2 Murmur Cardiac Undiagnosed Office Visit 06/19/2009 9:40a Cardiology Office You Monahan 786.59 Pain Chest Vargas Heaton, [facility] Other 401.1 Hypertension Benign 414.01 Coronary Atherosclerosis [place] Office Visit 06/06/2009 11:00a Cardiology Office MarshNichole mcgee 786.50 Pain Chest Fabiano, SAÚL, Unspec [employer] ENGINEER 414.01 Coronary Atherosclerosis [place] 428.0 Congestive Heart Failure Unspecified 311 Depressive [...] 414.01 Coronary 10:15a Office SAÚL Mario, Atherosclerosis [employer] SOFTWARE TEST ENGINEER [place] 433.10 Occlusion & Stenosis Carotid Artery W/O Cerebral Infarction 401.1 Hypertension Benign 272.4 Hyperlipidemia Other Unspec Office Visit 04/19/2008 Cardiology Taniya 414.01 Coronary 9:15a Office You Heaton M.D., Atherosclerosis FAC [place] 250.02 Diabetes Mellitus W/O Compl Type II Or Unspec Type Uncontrol Office Visit 02/23/2008 Cardiology Taniya, 414.01 Coronary 10:15a Office You Heaton M.D., Atherosclerosis FAC [place] 443.9 Peripheral Vascular Disease Unspec Office Visit 02/07/2008 Cardiology Taniya, 414.01 Coronary 10:15a Office You Heaton M.D., Atherosclerosis FAC [place] 785.9 Cardiovascular Symptoms Other 401.1 Hypertension Benign 272.4 Hyperlipidemia Other Unspec Office Visit 09/28/2007 Cardiology Taniya 414.01 Coronary 10:15a Office You Heaton M.D., Atherosclerosis FAC [place] 414.9 Ischemic Heart Disease Chronic Unspec Office Visit 09/22/2007 Cardiology Taniya, 794.30 Cardiovascular 1:15p Office You Heaton M.D., Function Study FACC Unspec Abnormal 786.50 Pain Chest Unspec 401.1 Hypertension Benign 272.4 Hyperlipidemia Other Unspec Plan of Treatment Future Appointment(s):10/25/2018 2:15 pm - Annamaria Madrigal MD at Cardiology Ujsake0807/21/2018 - Annamaria Madrigal MDI25.10 Atherosclerotic heart disease of telida coronary artery withComments:Chronic stable CAD. No signs or symptoms of ischemia.Z01.810 Encounter for preprocedural cardiovascular examinationComments: Despite her arthritis limitations she exercises every day with a personal finance instructor and goes to PT. She is able [...] usually runs around 120'/60'. No changes made lkpubI46.110 Hereditary hemochromatosisComments:Had Echo 09/2017 with no evidence for restriction or LV dysfunction.Will hold off additional testingat this time.AllFollow up:3 months Sooner appt if symptoms arise.
[2018-08-10] MEDS ORDERED: ceFAZolin 2 GM PREMIX in ORs 2 GM/50 ML BAG IVPB ONE (07:21)
[2018-08-10] MEDS ORDERED: Gabapentin CAP(*) 300 MG ONE ×2 (07:21→12:52)
[2018-08-10] MEDS ORDERED: fentaNYL* 50 MCG/ML 2 ML VIAL (100 MCG VIAL) ONE (08:35)
[2018-08-10] MEDS ORDERED: KETAMINE HCL* 50 MG/ML 10 ML VIAL ONE (08:35)
[2018-08-10] MEDS ORDERED: Midazolam* 1 MG/ML 5 ML VIAL (5 MG) ONE (08:35)
[2018-08-10] MEDS ORDERED: Ketorolac INJ* 30 MG/ML 1 ML VIAL ONE (08:39)
[2018-08-10] MEDS ORDERED: Dexamethasone IV* 4 MG/ML 1 ML (4 MG) ONE (08:39)
[2018-08-10] MEDS ORDERED: DiMENhydriNATE IV* 50 MG/ML VIAL ONE (08:39)
[2018-08-10] MEDS ORDERED: Propofol* 10 MG/ML 20 ML BTL ONE ×2 (08:39→11:26)
[2018-08-10] MEDS ORDERED: Ondansetron INJ* 2 MG/ML VIAL ONE (08:39)
[2018-08-10] MEDS ORDERED: Lidocaine 2% PF * 5 ML VIAL ONE (08:39)
[2018-08-10] MEDS ORDERED: Succinylcholine* 20 MG/ML 10 ML VIAL ONE (08:39)
[2018-08-10] MEDS ORDERED: ROPIVACAINE 5 MG/ML 30 ML BTL (0.5%) ONE (08:51)
[2018-08-10] MEDS ORDERED: EPHEDrine (Pressors)* 50 MG/ML VIAL ONE (09:44)
[2018-08-10] MEDS ORDERED: Glycopyrrolate IV* 0.2 MG/ML 1 ML VIAL ONE ×2 (09:44→10:08)
[2018-08-10] MEDS ORDERED: DiMENhydriNATE IV* 50 MG/ML VIAL IV PUSH PRN (10:40)
[2018-08-10] MEDS ORDERED: Naloxone* 0.4 MG/ML 1 ML VIAL IV PRN (10:40)
[2018-08-10] MEDS ORDERED: HYDROmorphone INJ1* 1 MG/ML SYRINGE ONE ×3 (11:19→13:11)
[2018-08-10] MEDS ORDERED: Acetaminophen TAB* 325 MG PO PRN (12:21)
[2018-08-10] MEDS ORDERED: Bisacodyl SUPP* 10 MG SUPP PR PRN (12:21)
[2018-08-10] MEDS ORDERED: Ondansetron INJ* 2 MG/ML VIAL IV PRN (12:21)
[2018-08-10] MEDS ORDERED: diPHENhydraMINE IV* 50 MG/ML 1 ml VIAL (BENADRYL) IV PRN (12:21)
[2018-08-10] MEDS ORDERED: Magnesium Hydroxide LIQ* 30 ML UDC PO PRN (12:21)
[2018-08-10] MEDS ORDERED: oxyCODONE TAB* 5 MG TAB PO PRN (12:28)
[2018-08-10] MEDS: HYDROmorphone INJ1* 1 MG/ML SYRINGE IV PRN ×5 (12:34→13:14)
[2018-08-10] MEDS ORDERED: oxyCODONE TAB* 5 MG TAB ONE (12:40)
[2018-08-10] MEDS: oxyCODONE TAB* 5 MG TAB PO PRN ×3 (12:41→20:12)
[2018-08-10] MEDS: HYDROmorphone INJ* 0.5 MG/0.5 ML SYRINGE IV SLOW PU PRN ×3 (13:18→14:01)
[2018-08-10] MEDS ORDERED: Nitroglycerin TAB 0.4 MG* 0.4 MG TAB SL PRN (14:04)
[2018-08-10] MEDS ORDERED: tiZANidine TAB* 2 MG PO PRN (14:04)
--- NOTE | 2018-08-10 14:22 | PN ---
Progress Note - Progress Note Date of Service: 08/10/18 Note: resting comfortably, moderate pain, dressing c/d, abduction pillow in place, able to dorsi flex/ plantar flex, 2+ DP pulse and intact sensation
[2018-08-10] MEDS ORDERED: Dextrose 50% Syringe 50 ML* 25 GM/50 ML SYRINGE IV PUSH PRN (14:23)
[2018-08-10] MEDS ORDERED: Insulin GLARGINE(*) 1 UNITS UNIT ONE (14:57)
[2018-08-10] MEDS ORDERED: Cyclobenzaprine TAB* 10 MG ONE (14:58)
[2018-08-10] MEDS: Lactated Ringers 1000 ML Bag* 1,000 ML IV SCH (15:02)
[2018-08-10] MEDS: traMADol TAB* 50 MG PO PRN ×2 (15:02→22:41)
[2018-08-10] MEDS: Cyclobenzaprine TAB* 10 MG PO PRN ×2 (15:03→23:35)
[2018-08-10] MEDS: Morphine VIAL* 4 MG/ML VIAL (1 ml vial) IV PRN ×2 (15:15→17:18)
[2018-08-10] MEDS: Morphine TAB Extended Release (*) 15 MG TAB.ER PO SCH (15:41)
[2018-08-10] MEDS ORDERED: Morphine TAB Extended Release (*) 30 MG TAB.ER PO SCH (16:00)
[2018-08-10] MEDS ORDERED: Warfarin TAB(*) 6 MG PO ONE (17:00)
[2018-08-10] MEDS: Gabapentin CAP(*) 300 MG PO SCH ×2 (17:17→23:34)
--- NOTE | 2018-08-10 17:53 | CONS ---
CONSULTATION REPORT: DATE OF CONSULT: 08/10/18 PRIMARY CARE PROVIDER: Jason Mercado MD REQUESTING PHYSICIAN IN CONSULT: Cait Heller MD ATTENDING PHYSICIAN: Nicolasa Jean Baptiste MD REASON FOR CONSULTATION: Co-medical management. HISTORY OF PRESENT ILLNESS/HOSPITAL COURSE: I will refer you to Dr. Cait Heller's history and physical dictated on 07/29/18 for complete details, but in short Ms. Smith is a 68-year-old female with a past medical history of diabetes type 2, insulin dependent, hypertension, history of LA x2 with 6 stents , hyperlipidemia, hemochromatosis, and obstructive sleep apnea who [place] [facility] [place] for an elective left total hip arthroplasty due to having failed conservative treatment. The patient denies chest pain, shortness of breath, abdominal pain, nausea, vomiting, diarrhea, pain or swelling in the upper or lower extremities. She does complain of left hip pain and she is postoperative left total knee arthroplasty. PAST MEDICAL HISTORY: 1. Diabetes mellitus, type 2, insulin dependent. 2. Hypertension. 3. History of LA requiring 6 stents, last LA was 2012. 4. Hyperlipidemia. 5. Hemochromatosis. 6. Obstructive sleep apnea. PAST SURGICAL HISTORY: 1. Multiple D and Cs. 2. Hysterectomy in 1992. 3. Right total hip arthroplasty in 2016. 4. Bilateral cataracts in 2017. 5. Right carpal tunnel in 2018. 6. Right eye laser surgery in 2019. HOME MEDICATIONS: 1. Amlodipine 10 mg p.o. q.a.m. 2. Zolpidem 10 mg p.o. at bedtime. 3. Tizanidine 10 mg p.o. q.4 hours p.r.n. 4. Spironolactone 50 mg p.o. q.a.m. 5. Ranolazine 1000 mg p.o. 0600, 1800. 6. Oxycodone 10 mg p.o. q.4 hours p.r.n. 7. Nitroglycerin tab 0.4 mg sublingual q.5 minutes p.r.n. 8. Losartan 25 mg p.o. q.a.m. 9. Imdur 30 mg p.o. at bedtime. 10. Imdur 60 mg p.o. in the morning. 11. Insulin glargine 30 units subcu b.i.d. 12. Gabapentin 600 mg p.o. 0100 hours, 0600 hours, 1200 hours, 1800 hours. 13. Furosemide 40 mg p.o. q.a.m. p.r.n. 14. Fenofibrate 54 mg p.o. at bedtime. 15. Clopidogrel 75 mg p.o. q.a.m. 16. Carvedilol 6.25 mg p.o. b.i.d. 17. Atorvastatin 40 mg p.o. at bedtime. 18. Aspirin 81 mg 1 tab p.o. q.a.m. ALLERGIES: WELLBUTRIN, seizures; TYLENOL, the patient has history of hemochromatosis; IBUPROFEN, avoids due to concerns with kidneys; LISINOPRIL, cough. FAMILY HISTORY: Mother had hypertension. Father is and had liver disease, heart disease, and hypertension. The patient states that multiple grandparents had hypertension, diabetes, and heart disease. SOCIAL HISTORY: The patient states she does not and never has used tobacco. The patient stopped drinking at the age of 42. Currently, she lives with her daughter. In the event that she is unable to make her own decisions, she appoints her daughter, Norma Madrigal, phone number is [phone], as her decision maker. REVIEW OF SYSTEMS: A 10-point review of systems has been performed and all the pertinent positives and negatives are in the HPI. All other systems are negative. PHYSICAL EXAM: General: Ms. Smith is a well-developed, well-nourished, obese white woman who is sitting up in bed with her lower extremities elevated. She appears to be in pain, but is in no acute distress. Vital signs are temperature 98.8, heart rate 57, respiratory rate 20, oxygen saturation 100% on 2 L nasal cannula, blood pressure is 128/70. HEENT: Visual sweeney are grossly intact. Pupils equally round and reactive to light. Extraocular movements are intact. Sclerae without icterus. Oral mucous membranes appear dry. Pharynx is clear. Neck: Full range of motion. Trachea midline. Respiratory: Symmetrical chest expansion with no use of accessory muscles. Lungs are clear to auscultation. No rhonchi, wheezes, or rubs. Cardiovascular: Regular rate and rhythm. S1, S2 present. No murmurs, rubs, or gallops. No JVD. Abdomen: Bowel sounds in all quadrants. Abdomen is soft and nontender to palpation. No hepatosplenomegaly. Extremities: Skin is warm and smooth bilaterally. No edema in upper or lower extremities. No clubbing or cyanosis. Radial and pedal pulses are 2+ bilaterally. Surgical site to left lateral thigh is dressed. Dressing is clean, dry, and intact. Ice pack is in place. Neuro: The patient is awake, A and O x3. DIAGNOSTIC STUDIES: Hip x-ray on 08/10/18 at 0900, the left hip prosthesis is anatomically aligned in the AP projection, the right hip acetabular component and femoral shaft prosthesis is anatomically aligned in the AP projection. Left hip on 08/10/18 at 12:21, impression: Anatomic alignment of left hip prosthesis. ASSESSMENT AND PLAN: Ms. Smith is a 68-year-old female with a past medical history as described above who presents to [facility] today for an elective left total hip arthroplasty. The patient will be admitted for: 1. Left total hip arthroplasty. Management per Ortho Team. 2. Diabetes mellitus, type 2. The patient will be placed on home dose of Lantus 30 b.i.d. She can use her own Lantus. Sliding scale lispro per protocol. Consistent carbohydrate diet, low salt. 3. Hypertension. Continue amlodipine, spironolactone, Imdur, carvedilol. Hold Lasix. I's and O's and daily weights on the patient to monitor for need for Lasix. Hold losartan. 4. History of myocardial infarction. Continue nitro ordered p.r.n. 5. Hyperlipidemia. Continue Lipitor. Continue TriCor. Restart aspirin. Recommended restart clopidogrel tomorrow morning. 6. Hemochromatosis. Avoid Tylenol containing products. 7. Obstructive sleep apnea. The patient has CPAP. Continued use at night. 8. DVT prophylaxis. Per Ortho Team, the patient is placed on Lovenox. 9. Code status. Full code. TIME SPENT: Approximately 45 minutes were spent on this consultation, greater than half of that time was spent with the patient obtaining history and performing physical exam and reviewing the plan of care. The case has been reviewed with my attending Dr. Jean Baptiste, who is in agreement with the plan of care. ADAM AL, THERESE [id number]/[facility] #: [id number] MYRTLE
[2018-08-10] MEDS ORDERED: Ranolazine (NF) 500 MG TAB PO SCH (18:00)
[2018-08-10] MEDS: Insulin LISPRO* 1 UNITS UNIT SUBCUT SCH (18:04)
[2018-08-10] MEDS: ceFAZolin 1 GM ADVAN(*) 1 GM in NS 0.9% 50 ML* 50 ML IVPB SCH (18:10)
[2018-08-10] MEDS: Docusate CAP* 100 MG PO SCH (20:15)
[2018-08-10] MEDS: Atorvastatin* 40 MG TAB PO SCH (20:15)
[2018-08-10] MEDS: Carvedilol TAB* 6.25 MG PO SCH (20:16)
[2018-08-10] MEDS: Isosorbide Mononitrate ER TAB* 30 MG PO SCH (20:20)
[2018-08-10] MEDS: RANEXA 1000 MG PO SCH (20:29)
[2018-08-10] MEDS: Magnesium Hydroxide LIQ* 30 ML UDC PO SCH (21:38)
--- NOTE | 2018-08-10 22:10 | OP ---
DATE OF OPERATION: 08/10/18 - ROOM #343 DATE OF : 54 SURGEON: Cait Heller MD. MEAT BLENDER: THERESE Jesus. Mr. Prasad did help throughout the procedure with preparation of the leg, wound retraction, manipulation of the hip, and wound closure. ANESTHESIOLOGIST: Dr. Stephens. ANESTHESIA: General. PRE-OP DIAGNOSIS: Severe end-stage degenerative osteoarthritis of the left hip joint. POST-OP DIAGNOSIS: Severe end-stage degenerative osteoarthritis of the left hip joint. OPERATIVE PROCEDURE: Left total hip arthroplasty. COMPLICATIONS: None. ESTIMATED BLOOD LOSS: 200 cc. SPECIMENS: Femoral head and acetabular reaming sent to Pathology. HARDWARE USED: This is uncemented [place] total hip arthroplasty hardware. For the cup, a Trident 48D hemispherical acetabular shell. For the polyethylene , a Trident X3 0-degree polyethylene insert 32D. For the stem, an Accolade-2 size 2 with a 127-degree neck and for the head, a Biolox delta ceramic V40 femoral head 32 +0. BRIEF HISTORY/INDICATION: Ms. Smith is a 68-year-old female with years of increasingly severe left hip pain. Her radiographs showed [id number] arthritis. She failed conservative treatment with anti-inflammatories, pain medications, intra-articular injection and physical therapy. Due to continued pain and decreased quality of life, she elected to undergo left total hip arthroplasty. Informed consent was obtained from the patient. She understood the risks of surgery included but were not limited to bleeding, infection, damage to nearby structures, continued pain, need for further surgery, intraoperative fracture, nerve palsy, hardware failure or loosening, dislocation , leg length discrepancy, stroke, heart attack, blood clot, and . She wished to proceed. INTRAOPERATIVE FINDINGS: Intraoperatively, the patient was noted to have complete wear of the cartilage in the femoral head and acetabulum. She had extensive osteophyte formation around the entire acetabulum. DESCRIPTION OF PROCEDURE: Ms. Smith was identified in the preanesthesia unit. Her left lower extremity was marked as the correct operative side. Informed consent was signed and placed in the chart. Patient was taken to the operating room and placed under general anesthesia. A Pires catheter was placed. She was placed in the right lateral decubitus position on the pegboard. All bony prominences were well padded. Left lower extremity was prepped and draped in the usual sterile fashion. Preop time-out was made to correctly identify the patient's side and site. Appropriate perioperative antibiotics were given within 1 hour of incision. A standard posterior hip incision was made with a 10 blade and carried down to the extensor mechanism. A new 10 blade was used to make a standard incision in the lateral fascial layer in line with the skin incision. A Charnley retractor was placed. The piriformis and conjoint tendons were identified and elevated off the posterolateral femur using electrocautery. These were tagged with #5 Ethibond. Next, electrocautery was used to make a standard posterolateral capsular flap and this was also tagged with #5 Ethibond. The hip was carefully dislocated. Lesser troch to the center of the femoral head was measured at 50 mm. Oscillating saw was used to make the appropriate femoral neck cut. Femoral head was removed. The femur was retracted anteriorly. After appropriate placement of retractors, the acetabulum was well visualized. Long-handled knife was used to sharply remove any remaining labrum from the acetabular rim. The acetabulum was sequentially reamed up to a size 47. The 47 reamer obtained a bleeding subchondral bone bed. A 47 trial had excellent fit and stability. Final cup chosen was a Trident hemispherical acetabular cup 48D. This was impacted into the acetabulum without difficulty. The cup was extremely stable with excellent fit. There was appropriate anteversion. The polyethylene chosen was Trident X3 0-degree polyethylene liner, 48D. This was impacted into the acetabulum. The stability of the liner was checked and rechecked and noted to be stable. Next, attention was turned to preparation of the femoral canal. A canal finder was used to enter the proximal femur. The femur was sequentially broached up to a size 2. The size 2 broach had excellent fit and stability. A 127 neck trial with a 32 +0 head trial was chosen. Lesser troch to the center of the femoral head measured 51mm. The hip was reduced and taken through a range of motion. The hip was stable in all positions. There was good soft tissue tension and appropriate leg lengths. The hip was carefully dislocated. Final implant chosen was an Accolade-2 size 2 with a 127-degree neck angle. This stem was impacted into the femoral canal without difficulty. The stem was stable with appropriate anteversion. A 32 +0 Biolox delta ceramic V40 femoral head was chosen as the final head. This was impacted onto the femoral neck. Lesser troch to the center of the femoral head. Final measurement was 52 mm. The hip was reduced and taken through range of motion. The hip was stable in all positions. There was good leg length and soft tissue tension. The hip was copiously irrigated with sterile saline. The previously tagged capsule and tendons were reapproximated to the posterolateral femur through 2 trochanteric drill holes. The lateral fascial layer was closed using interrupted #1 Vicryls. The rest of the incision was closed in a layered fashion using 0 and 2-0 Vicryls. Skin was closed using running 3-0 Monocryl and Dermabond. Sterile Adaptic, 4x4s, and paper tape were used to cover the incision. The patient's anesthesia was reversed without difficulty. She was taken to the PACU in stable condition. Intended weightbearing will be weightbearing as tolerated. Intended DVT prophylaxis will be Eliquis. [id number]/[facility] #: [id number] MYRTLE
[2018-08-10] MEDS: Insulin GLARGINE(*) 1 UNITS UNIT SUBCUT SCH (22:40)
[2018-08-10] MEDS: Zolpidem TAB* 10 MG PO SCH (22:41)
[2018-08-11] MEDS: oxyCODONE TAB* 5 MG TAB PO PRN ×5 (01:14→20:43)
[2018-08-11] MEDS: Lactated Ringers 1000 ML Bag* 1,000 ML IV SCH ×2 (01:17→11:57)
[2018-08-11] MEDS: ceFAZolin 1 GM ADVAN(*) 1 GM in NS 0.9% 50 ML* 50 ML IVPB SCH ×2 (01:19→09:29)
[2018-08-11] MEDS: Morphine TAB Extended Release (*) 15 MG TAB.ER PO SCH ×2 (04:20→16:08)
[2018-08-11] MEDS: Gabapentin CAP(*) 300 MG PO SCH ×3 (05:39→18:17)
[2018-08-11] MEDS: RANEXA 1000 MG PO SCH ×2 (05:39→18:17)
[2018-08-11] MEDS: Cyclobenzaprine TAB* 10 MG PO PRN ×2 (06:55→21:35)
[2018-08-11] MEDS: traMADol TAB* 50 MG PO PRN (06:55)
[2018-08-11 07:32] LABS: ABS Basophils 0 10^3/ul (0-0.2); ABS Eosinophils 0 10^3/ul (0-0.6); ABS Lymphocytes 0.8 10^3/ul (1.0-4.8); ABS Monocytes 1.1 10^3/ul (0-0.8); ABS Neutrophils 10.1 10^3/ul (1.5-7.7); ABS Nucleated RBC 0 10^3/ul; Eosinophil % 0 %; Hematocrit 29 % (35-47); Lymphocyte % 6.5 %; Mean Corpuscular HGB Conc 34 g/dl (31-36); Mean Corpuscular Hemoglobin 32 pg (27-31); Mean Corpuscular Volume 94 fL (80-97); Mean Platelet Volume 10.2 fL (7.4-10.4); Nucleated Red Blood Cells % 0; Platelet Count 166 10^3/ul (150-450); Red Blood Count 3.09 10^6/ul (4.00-5.40); Red Cell Distribution Width 13 % (10.5-15)
[2018-08-11 07:35] LABS: INR 1.48 (0.77-1.02)
[2018-08-11 07:58] LABS: BUN/Creatinine Ratio 26.5 (8-20); Calcium 8.9 mg/dL (8.6-10.3); EGFR African American 47.1 (>60); EGFR Non-African American 38.9 (>60); Potassium 4.8 mmol/L (3.5-5.0)
[2018-08-11] MEDS ORDERED: Spironolactone TAB* 25 MG PO SCH (09:00)
[2018-08-11] MEDS ORDERED: Aspirin 81 mg CHEW TAB* 81 MG TAB.CHEW PO SCH ×2 (09:00→09:23)
[2018-08-11] MEDS ORDERED: amLODIPine TAB* 5 MG PO SCH (09:00)
[2018-08-11] MEDS: Enoxaparin(*) 40 MG/0.4 ML SYR SUBCUT SCH (09:32)
[2018-08-11] MEDS: Insulin LISPRO* 1 UNITS UNIT SUBCUT SCH ×3 (09:36→18:19)
[2018-08-11] MEDS: Insulin GLARGINE(*) 1 UNITS UNIT SUBCUT SCH ×2 (09:37→21:33)
[2018-08-11] MEDS: Isosorbide Mononitrate ER TAB* 60 MG PO SCH (09:39)
[2018-08-11] MEDS: Carvedilol TAB* 6.25 MG PO SCH ×2 (09:40→20:42)
[2018-08-11] MEDS: Vitamin THERAPEUTIC TAB PO SCH (09:40)
[2018-08-11] MEDS: Docusate CAP* 100 MG PO SCH ×2 (09:40→20:42)
[2018-08-11] MEDS: Magnesium Hydroxide LIQ* 30 ML UDC PO SCH ×2 (09:43→20:46)
--- NOTE | 2018-08-11 10:50 | PN ---
Progress Note - Progress Note Date of Service: 08/11/18 SOAP: Subjective: []Pt seen at bedside. She feels well without CP, SOB, dizziness or nausea. Left hip pain is well controlled. No history of DVT or PE herself though her father and grandfather both have PE history. Objective: [] General: Well appearing, NAD LLE: Left hip dressing CDI, thigh is soft, DF/PF intact, DP2+, sensation intact to light touch distally Calves supple and nontender without erythema, edema or palpable cords Assessment: [POD [address] Heller Hemochromatosis Plan: []WBAT PT/OT lovenox 40 mg sq qd x 30 days for dvt prophylaxis per pt preference she denies coumadin and eliquis. Pt has brought her own blood for transfusion if it is needed. She understands this will not be administered unless she becomes anemic and it is medically indicated Requests rehab, CM aware Vital Signs Temp 98.0 F 08/11/18 04:24 Pulse 68 08/11/18 09:32 Resp 16 08/11/18 09:44 BP 99/40 08/11/18 09:32 Pulse Ox 96 08/11/18 09:32 Intake & Output 08/10/18 08/11/18 08/11/18 18:59 06:59 18:59 Intake Total 1750 1740 Output Total 150 2550 Balance 1600 -810 Weight 190 lb 192 lb 8 oz Intake: IV Fluids 1750 1040 ABX - CEFAZOLIN 50 LR 1700 990 NS 50ML, Cefazolin 2G 50 Oral 700 Output: Pires 150 2550 Laboratory Last Values WBC 12.0 10^3/ul (3.5-10.8) H 08/11/18 07:22 RBC 3.09 10^6/ul (4.00-5.40) L 08/11/18 07:22 Hgb 10.0 g/dl (12.0-16.0) L 08/11/18 07:22 Hct 29 % (35-47) L 08/11/18 07:22 MCV 94 fL (80-97) 08/11/18 07:22 MCH 32 pg (27-31) H 08/11/18 07:22 MCHC 34 g/dl (31-36) 08/11/18 07:22 RDW 13 % (10.5-15) 08/11/18 07:22 Plt Count 166 10^3/ul (150-450) 08/11/18 07:22 MPV 10.2 fL (7.4-10.4) 08/11/18 07:22 Neut % (Auto) 84.1 % 08/11/18 07:22 Lymph % (Auto) 6.5 % 08/11/18 07:22 [place] % (Auto) 9.2 % 08/11/18 07:22 Eos % (Auto) 0 % 08/11/18 07:22 Baso % (Auto) 0.2 % 08/11/18 07:22 Absolute Neuts (auto) 10.1 10^3/ul (1.5-7.7) H 08/11/18 07:22 Absolute Lymphs (auto) 0.8 10^3/ul (1.0-4.8) L 08/11/18 07:22 Absolute Monos (auto) 1.1 10^3/ul (0-0.8) H 08/11/18 07:22 Absolute Eos (auto) 0 10^3/ul (0-0.6) 08/11/18 07:22 Absolute Basos (auto) 0 10^3/ul (0-0.2) 08/11/18 07:22 Absolute Nucleated RBC 0 10^3/ul 08/11/18 07:22 Nucleated RBC % 0 08/11/18 07:22 INR (Anticoag Therapy) 1.48 (0.77-1.02) H 08/11/18 07:22 Sodium 135 mmol/L (135-145) 08/11/18 07:22 Potassium 4.8 mmol/L (3.5-5.0) 08/11/18 07:22 Chloride 104 mmol/L (101-111) 08/11/18 07:22 Carbon Dioxide 26 mmol/L (22-32) 08/11/18 07:22 Anion Gap 5 mmol/L (2-11) 08/11/18 07:22 BUN 36 mg/dL (6-24) H 08/11/18 07:22 Creatinine 1.36 mg/dL (0.51-0.95) H 08/11/18 07:22 Est GFR ( Amer) 47.1 (>60) 08/11/18 07:22 Est GFR (Non-Af Amer) 38.9 (>60) 08/11/18 07:22 BUN/Creatinine Ratio 26.5 (8-20) H 08/11/18 07:22 Glucose 221 mg/dL (70-100) H 08/11/18 07:22 POC Glucose (mg/dL) 261 mg/dL (70-100) H 08/10/18 22:40 Calcium 8.9 mg/dL (8.6-10.3) 08/11/18 07:22
--- NOTE | 2018-08-11 14:44 | CONSULT ---
Consult Consult: WOUND CONSULT NOTE Date of Service: 08/11/18 History: Interval History: Ms. Smith is a 68 yo female with PMH significant for obesity, DM2, HTN, CAD , HLD, hemochromatosis, SHAKIR, and CKD-3 who presented to [facility] for an elective left total hip arthroplasty. Ms. Smith states that her pet chicken often scratches her skin while she is holding it. She states that she was last scratched about 2 weeks ago and the wounds are still present. She states that the wounds often take a few weeks to heal due to her diabetes. She washes the area with soap and water daily and applies antibiotic ointment. She denies fever or chills. Past Medical/Family/Social History: Family History: Unchanged from Admission Social History: Unchanged from Admission Past Medical History: Unchanged from Admission Objective: Active Medications: Diphenhydramine HCl (Benadryl Iv*) 25 mg IV Q6H PRN Reason: itching Atorvastatin Calcium (Lipitor*) 40 mg PO BEDTIME [facility] Bisacodyl (Dulcolax Supp*) 10 mg [place] DAILY PRN Reason: constipation Carvedilol (Coreg Tab*) 6.25 mg PO BID [facility] Cyclobenzaprine HCl (Flexeril Tab*) 5 mg PO TID PRN Reason: SPASMS Dextrose (D50w Syringe 50 Ml*) 12.5 gm IV PUSH .FOR FS < 60 - SS PRN Reason: FS < 60 Amlodipine Besylate (Norvasc Tab*) 10 mg PO QAM [facility] Aspirin (Aspirin Ec Tab*) 81 mg PO DAILY [facility] Docusate Sodium (Colace Cap*) 100 mg PO BID [facility] Enoxaparin Sodium (Lovenox(*)) 40 mg SUBCUT Q24H [facility] Fenofibrate (Tricor) 54 mg PO BEDTIME [facility] Gabapentin (Neurontin Cap(*)) 600 mg PO 0000,0600,1200,1800 [facility] Insulin Glargine (Lantus(*)) 30 units SUBCUT Q12HR [facility] Insulin Human Lispro (Humalog*) 0 units SUBCUT AC [facility]; Protocol Isosorbide Mononitrate (Imdur Er Tab*) 30 mg PO 2100 [facility] Isosorbide Mononitrate (Imdur Er Tab*) 60 mg PO DAILY [facility] Lactated Ringer's (Lactated Ringers 1000 Ml Bag*) 1,000 mls @ 100 mls/hr IV PER RATE [facility] Lactulose (Lactulose*) 30 ml PO Q6H PRN Reason: constipation Magnesium Hydroxide (Milk Of Magnesia Liq*) 30 ml PO Q6H PRN Reason: constipation Magnesium Hydroxide (Milk Of Magnesia Liq*) 30 ml PO BID [facility] Morphine Sulfate (Morphine Vial*) 2 mg IV Q2H PRN Reason: PAIN Morphine Sulfate (Ms Contin(*)) 15 mg PO Q12H [facility] Multivitamins (Theragran Tab*) 1 tab PO DAILY [facility] Nitroglycerin (Nitroglycerin Tab 0.4 Mg*) 0.4 mg SL Q5M PRN Reason: CHEST PAIN Non-Formulary Medication (Non Formulary Med(Nf)) 1 dose PO 0600,1800 [facility] Ondansetron HCl (Zofran Inj*) 4 mg IV Q6H PRN Reason: nausea Oxycodone HCl (Roxycodone Tab*) 10 mg PO Q4H PRN Reason: PAIN - SEVERE Oxycodone HCl (Roxycodone Tab*) 5 mg PO Q4H PRN Reason: PAIN - MILD TO MODERATE Pharmacy Profile Note (Coumadin Daily Reminder*) 1 note FOLLOW UP 1700 [facility] Spironolactone (Aldactone Tab*) 50 mg PO QAM [facility] Tizanidine HCl (Zanaflex Tab*) 10 mg PO Q4H PRN Reason: SPASM/PAIN Tramadol HCl (Ultram*) 50 mg PO Q6H PRN Reason: PAIN - MILD TO MODERATE Zolpidem Tartrate (Ambien Tab*) 10 mg PO BEDTIME [facility] Vital Signs: 08/11/18 11:22 Temperature 98.3 F Temperature Oral Source Pulse Rate 71 Respiratory 16 Rate Blood Pressure 120/42 (mmHg) Blood Pressure 61 Mean O2 Sat by Pulse 100 Oximetry Exam: General: NAD, sitting up in bed Neuro: Alert and Oriented X4 Skin: There are 4 superficial abrasions to the right breast with some scabbing. The largest ones is located at about 5 o'clock on the breast above the nipple. It measures 0.8 cm x 0.7 cm x 0.1 cm. Surrounding skin is without redness. Data: Labs: 08/11/18 08/11/18 07:22 07:22 WBC 12.0 H Hgb 10.0 L Hct 29 L Plt Count 166 Sodium 135 Potassium 4.8 Chloride 104 Anion Gap 5 BUN 36 H Creatinine 1.36 H Est GFR (Non-Af Amer) 38.9 Glucose 221 H Assessment/Plan: Ms. Smith is a 68 yo female with PMH significant for obesity, DM2, HTN, CAD , HLD, hemochromatosis, SHAKIR, and CKD-3 who presented to [facility] for an elective left total hip arthroplasty. Asked to evaluate the patient due to a skin injury from a chicken. 1. Abrasions to the right breast. There are 4 superficial open areas with scabbing, they appear to be healing and there is not warmth or erythema. NO signs of infection. Recommend washing with soap and water and applying antibiotic ointment to the areas daily. VTE PPX: Lovenox Diet: Consistent Carbohydrate diet Code Status: DNR Disposition: Inpatient. Disposition per Orthopedics. Time Spent: A total of 15 minutes was spend assessing and measuring the wounds and discussing the the patient proper wound care. Attending: Dr. Marla Frankel MD
--- NOTE | 2018-08-11 15:04 | PN ---
Subjective Date of Service: 08/11/18 Interval History: HOSPITALIST PROGRESS NOTE Patient seen and examined at bedside. Care reviewed and d/w Nimco Nieves RN. She offers no new complaints today. Hip pain is controlled. Denies CP, palpitations, or dyspnea. Family History: Unchanged from Admission Social History: Unchanged from Admission Past Medical History: Unchanged from Admission Objective Active Medications: Amlodipine Besylate (Norvasc Tab*) 10 mg PO QAM [facility] Aspirin (Aspirin Ec Tab*) 81 mg PO DAILY [facility] Atorvastatin Calcium (Lipitor*) 40 mg PO BEDTIME [facility] Last Admin: 08/10/18 20:15 Dose: 40 mg Bisacodyl (Dulcolax Supp*) 10 mg [place] DAILY PRN PRN Reason: constipation Carvedilol (Coreg Tab*) 6.25 mg PO BID [facility] Cyclobenzaprine HCl (Flexeril Tab*) 5 mg PO TID PRN PRN Reason: SPASMS Last Admin: 08/11/18 06:55 Dose: 5 mg Dextrose (D50w Syringe 50 Ml*) 12.5 gm IV PUSH .FOR FS < 60 - SS PRN PRN Reason: FS < 60 Diphenhydramine HCl (Benadryl Iv*) 25 mg IV Q6H PRN PRN Reason: itching Docusate Sodium (Colace Cap*) 100 mg PO BID [facility] Last Admin: 08/11/18 09:40 Dose: 100 mg Enoxaparin Sodium (Lovenox(*)) 40 mg SUBCUT Q24H [facility] Last Admin: 08/11/18 09:32 Dose: 40 mg Fenofibrate (Tricor) 54 mg PO BEDTIME [facility] Last Admin: 08/10/18 21:38 Dose: Not Given Gabapentin (Neurontin Cap(*)) 600 mg PO 0000,0600,1200,1800 [facility] Last Admin: 08/11/18 11:55 Dose: 600 mg Lactated Ringer's (Lactated Ringers 1000 Ml Bag*) 1,000 mls @ 100 mls/hr IV PER RATE [facility] Last Admin: 08/11/18 11:57 Dose: 100 mls/hr Insulin Glargine (Lantus(*)) 30 units SUBCUT Q12HR [facility] Last Admin: 08/11/18 09:37 Dose: 30 units Insulin Human Lispro (Humalog*) 0 units SUBCUT AC [facility]; Protocol Last Admin: 08/11/18 12:13 Dose: 3 unit Isosorbide Mononitrate (Imdur Er Tab*) 60 mg PO DAILY [facility] Last Admin: 08/11/18 09:39 Dose: 60 mg Isosorbide Mononitrate (Imdur Er Tab*) 30 mg PO 2100 [facility] Last Admin: 08/10/18 20:20 Dose: 30 mg Lactulose (Lactulose*) 30 ml PO Q6H PRN PRN Reason: constipation Magnesium Hydroxide (Milk Of Magnesia Liq*) 30 ml PO BID [facility] Last Admin: 08/11/18 09:43 Dose: Not Given Magnesium Hydroxide (Milk Of Magnesia Liq*) 30 ml PO Q6H PRN PRN Reason: constipation Morphine Sulfate (Morphine Vial*) 2 mg IV Q2H PRN PRN Reason: PAIN Last Admin: 08/10/18 17:18 Dose: 2 mg Morphine Sulfate (Ms Contin(*)) 15 mg PO Q12H [facility] Last Admin: 08/11/18 04:20 Dose: 15 mg Multivitamins (Theragran Tab*) 1 tab PO DAILY [facility] Last Admin: 08/11/18 09:40 Dose: 1 tab Nitroglycerin (Nitroglycerin Tab 0.4 Mg*) 0.4 mg SL Q5M PRN PRN Reason: CHEST PAIN Pto: Ranexa Er 1000 (Mg) 1 dose PO 0600,1800 [facility] Last Admin: 08/11/18 05:39 Dose: 1 dose Ondansetron HCl (Zofran Inj*) 4 mg IV Q6H PRN PRN Reason: nausea Oxycodone HCl (Roxycodone Tab*) 10 mg PO Q4H PRN PRN Reason: PAIN - SEVERE Last Admin: 08/11/18 11:54 Dose: 10 mg Oxycodone HCl (Roxycodone Tab*) 5 mg PO Q4H PRN PRN Reason: PAIN - MILD TO MODERATE Pharmacy Profile Note (Coumadin Daily Reminder*) 1 note FOLLOW UP 1700 [facility] Last Admin: 08/10/18 17:19 Dose: 1 note Spironolactone (Aldactone Tab*) 50 mg PO QAM [facility] Last Admin: 08/11/18 09:36 Dose: Not Given Tizanidine HCl (Zanaflex Tab*) 10 mg PO Q4H PRN PRN Reason: SPASM/PAIN Tramadol HCl (Ultram*) 50 mg PO Q6H PRN PRN Reason: PAIN - MILD TO MODERATE Last Admin: 08/11/18 06:55 Dose: 50 mg Zolpidem Tartrate (Ambien Tab*) 10 mg PO BEDTIME [facility] Last Admin: 08/10/18 22:41 Dose: 10 mg Vital Signs - 8 hr 08/11/18 08/11/18 08/11/18 07:57 08:00 09:32 Temperature Pulse Rate 68 68 Respiratory 16 16 Rate Blood Pressure 102/48 99/40 (mmHg) O2 Sat by Pulse 98 96 Oximetry 08/11/18 08/11/18 08/11/18 09:44 10:00 11:22 Temperature 98.3 F Pulse Rate 71 Respiratory 16 16 16 Rate Blood Pressure 120/42 (mmHg) O2 Sat by Pulse 100 Oximetry 08/11/18 08/11/18 11:54 11:55 Temperature Pulse Rate Respiratory 16 16 Rate Blood Pressure (mmHg) O2 Sat by Pulse Oximetry Oxygen Devices in Use Now: None Appearance: Pleasant lady sitting up in bed in NAD. Eyes: No Scleral Icterus Ears/Nose/Mouth/Throat: Mucous Membranes Moist Neck: Trachea Midline Respiratory: Symmetrical Chest Expansion and Respiratory Effort, Clear to Auscultation Cardiovascular: RRR - Normal S1 and S2 Extremities: - - Good capillary refill, good pulses, sensation intact, SCDs in place Neurological: Alert and Oriented x 3, NL Muscle Strength and Tone Result Diagrams: 08/11/18 07:22 08/11/18 07:22 Assess/Plan/Problems-Billing Assessment: Mrs Smith is a 68yo F with PMH of obesity with BMI 35.2, type 2 DM, HTN, CAD s/p 6 stents (last in 2012), HLD, hemochromatosis, SHAKIR, CKD stage 3, who presented for an elective left LUIS ARMANDO. Hospitalist service consulted to manage comorbidities. - Patient Problems (1) Status post total hip replacement, left Comment: - Management as per Ortho. (2) Diabetes Comment: - Glucose trending up - will increase Lantus to 35 BID and continue Lispro SS. Goal is FS <180. (3) CAD (coronary artery disease) Comment: - Stable. - Continue Aspirin, Atorvastatin, Carverdilol, Imdur, and Ranexa. (4) HTN (hypertension) Comment: - Controlled. - Continue Coreg, Imdur, Amlodipine with holding parameters. (5) HLD (hyperlipidemia) Comment: - Continue Atorvastatin and Tricor. (6) CKD stage 3 due to type 2 diabetes mellitus Comment: - Monitor renal function. - Will check Cr tomorrow and may resume Losartan by then. (7) SHAKIR (obstructive sleep apnea) Comment: - Continue CPAP. (8) DVT prophylaxis Comment: - Lovenox/Warfarin as per Ortho. Status and Disposition: Hospitalist service will continue to follow with you.
[2018-08-11] MEDS ORDERED: Insulin GLARGINE(*) 1 UNITS UNIT SUBCUT ONE (15:15)
[2018-08-11] MEDS: Spironolactone TAB* 25 MG PO SCH (15:42)
[2018-08-11] MEDS ORDERED: Warfarin TAB(*) 4 MG PO ONE (17:00)
[2018-08-11] MEDS: Isosorbide Mononitrate ER TAB* 30 MG PO SCH (20:43)
[2018-08-11] MEDS: Atorvastatin* 40 MG TAB PO SCH (20:43)
[2018-08-11] MEDS: Zolpidem TAB* 10 MG PO SCH (22:30)
[2018-08-12] MEDS: Gabapentin CAP(*) 300 MG PO SCH ×4 (00:16→19:12)
[2018-08-12] MEDS: oxyCODONE TAB* 5 MG TAB PO PRN ×5 (02:43→22:47)
[2018-08-12] MEDS: Morphine TAB Extended Release (*) 15 MG TAB.ER PO SCH ×2 (04:18→16:18)
[2018-08-12 06:03] LABS: Hematocrit 28 % (35-47); Hemoglobin 9.6 g/dl (12.0-16.0); Mean Platelet Volume 10.6 fL (7.4-10.4); Platelet Count 157 10^3/ul (150-450)
[2018-08-12 06:07] LABS: INR 1.61 (0.77-1.02)
[2018-08-12] MEDS: RANEXA 1000 MG PO SCH ×2 (06:09→19:12)
[2018-08-12 06:22] LABS: BUN/Creatinine Ratio 28.6 (8-20); Calcium 8.9 mg/dL (8.6-10.3); EGFR African American 51.4 (>60); EGFR Non-African American 42.5 (>60); Potassium 4.2 mmol/L (3.5-5.0)
[2018-08-12] MEDS: Insulin LISPRO* 1 UNITS UNIT SUBCUT SCH ×3 (07:44→19:02)
--- NOTE | 2018-08-12 10:12 | PN ---
Progress Note - Progress Note Date of Service: 08/12/18 SOAP: Subjective: []Pt seen and examined at bedside. She is feeling well without CP, SOB, dizziness, nausea. Left hip pain is well controlled. Objective: General: NAD LLE: Hip dressing changed, incision CDI no erythema or discharge. Thigh is soft. DF/PF intact. DP2+, sensation intact to light touch distally. Calves supple and nontender without erythema, edema or palpable cords Assessment: []POD [address] Heller Hemochromatosis Plan: []WBAT PT/OT Lovenox 40 mg sq qd x 30 days for dvt prophylaxis per pt preference she denies coumadin and eliquis. Pt has brought her own blood for transfusion if it is needed. She understands this will not be administered unless she becomes anemic and it is medically indicated [facility] tomorrow. Rx's not needed aside from narcotics, paper narcotic scripts needed Vital Signs Temp 99.3 F 08/12/18 07:26 Pulse 71 08/12/18 07:26 Resp 18 08/12/18 07:53 BP 103/46 08/12/18 07:26 Pulse Ox 95 08/12/18 07:53 Intake & Output 08/11/18 08/12/18 08/12/18 18:59 06:59 18:59 Intake Total 1967 250 Output Total 400 650 250 Balance 1567 -400 -250 Weight 197 lb 14.4 oz Intake: IV Fluids 1555 LR 1555 IVPB 52 ABX - CEFAZOLIN 52 Oral 360 250 Output: Urine 400 650 250 Laboratory Last Values WBC 12.0 10^3/ul (3.5-10.8) H 08/11/18 07:22 RBC 3.09 10^6/ul (4.00-5.40) L 08/11/18 07:22 Hgb 9.6 g/dl (12.0-16.0) L 08/12/18 05:21 Hct 28 % (35-47) L 08/12/18 05:21 MCV 94 fL (80-97) 08/11/18 07:22 MCH 32 pg (27-31) H 08/11/18 07:22 MCHC 34 g/dl (31-36) 08/11/18 07:22 RDW 13 % (10.5-15) 08/11/18 07:22 Plt Count 157 10^3/ul (150-450) 08/12/18 05:21 MPV 10.6 fL (7.4-10.4) H 08/12/18 05:21 Neut % (Auto) 84.1 % 08/11/18 07:22 Lymph % (Auto) 6.5 % 08/11/18 07:22 [place] % (Auto) 9.2 % 08/11/18 07:22 Eos % (Auto) 0 % 08/11/18 07:22 Baso % (Auto) 0.2 % 08/11/18 07:22 Absolute Neuts (auto) 10.1 10^3/ul (1.5-7.7) H 08/11/18 07:22 Absolute Lymphs (auto) 0.8 10^3/ul (1.0-4.8) L 08/11/18 07:22 Absolute Monos (auto) 1.1 10^3/ul (0-0.8) H 08/11/18 07:22 Absolute Eos (auto) 0 10^3/ul (0-0.6) 08/11/18 07:22 Absolute Basos (auto) 0 10^3/ul (0-0.2) 08/11/18 07:22 Absolute Nucleated RBC 0 10^3/ul 08/11/18 07:22 Nucleated RBC % 0 08/11/18 07:22 INR (Anticoag Therapy) 1.61 (0.77-1.02) H 08/12/18 05:21 Sodium 136 mmol/L (135-145) 08/12/18 05:21 Potassium 4.2 mmol/L (3.5-5.0) 08/12/18 05:21 Chloride 104 mmol/L (101-111) 08/12/18 05:21 Carbon Dioxide 26 mmol/L (22-32) 08/12/18 05:21 Anion Gap 6 mmol/L (2-11) 08/12/18 05:21 BUN 36 mg/dL (6-24) H 08/12/18 05:21 Creatinine 1.26 mg/dL (0.51-0.95) H 08/12/18 05:21 Est GFR ( Amer) 51.4 (>60) 08/12/18 05:21 Est GFR (Non-Af Amer) 42.5 (>60) 08/12/18 05:21 BUN/Creatinine Ratio 28.6 (8-20) H 08/12/18 05:21 Glucose 116 mg/dL (70-100) H 08/12/18 05:21 POC Glucose (mg/dL) 119 mg/dL (70-100) H 08/12/18 07:40 Calcium 8.9 mg/dL (8.6-10.3) 08/12/18 05:21
[2018-08-12] MEDS: Magnesium Hydroxide LIQ* 30 ML UDC PO SCH ×2 (10:26→21:13)
[2018-08-12] MEDS: Enoxaparin(*) 40 MG/0.4 ML SYR SUBCUT SCH (10:31)
[2018-08-12] MEDS: Insulin GLARGINE(*) 1 UNITS UNIT SUBCUT SCH ×2 (10:31→21:01)
[2018-08-12] MEDS: Docusate CAP* 100 MG PO SCH ×2 (10:32→21:00)
[2018-08-12] MEDS: Spironolactone TAB* 25 MG PO SCH (10:32)
[2018-08-12] MEDS: Isosorbide Mononitrate ER TAB* 60 MG PO SCH (10:33)
[2018-08-12] MEDS: Vitamin THERAPEUTIC TAB PO SCH (10:33)
[2018-08-12] MEDS: Carvedilol TAB* 6.25 MG PO SCH ×2 (10:33→21:00)
[2018-08-12] MEDS: amLODIPine TAB* 5 MG PO SCH (10:33)
[2018-08-12] MEDS: traMADol TAB* 50 MG PO PRN (10:34)
[2018-08-12] MEDS: Aspirin EC TAB* 81 MG TAB.EC PO SCH (10:35)
--- NOTE | 2018-08-12 16:51 | PN ---
Subjective Date of Service: 08/12/18 Interval History: HOSPITALIST PROGRESS NOTE Patient seen and examined at bedside. Care reviewed and d/w Dagoberto Alex RN. She offers no new complaints today. Family History: Unchanged from Admission Social History: Unchanged from Admission Past Medical History: Unchanged from Admission Objective Active Medications: Amlodipine Besylate (Norvasc Tab*) 10 mg PO QAM [facility] Last Admin: 08/12/18 10:33 Dose: 10 mg Aspirin (Aspirin Ec Tab*) 81 mg PO DAILY [facility] Last Admin: 08/12/18 10:35 Dose: 81 mg Atorvastatin Calcium (Lipitor*) 40 mg PO BEDTIME [facility] Last Admin: 08/11/18 20:43 Dose: 40 mg Bisacodyl (Dulcolax Supp*) 10 mg [place] DAILY PRN PRN Reason: constipation Carvedilol (Coreg Tab*) 6.25 mg PO BID [facility] Last Admin: 08/12/18 10:33 Dose: 6.25 mg Cyclobenzaprine HCl (Flexeril Tab*) 5 mg PO TID PRN PRN Reason: SPASMS Last Admin: 08/11/18 21:35 Dose: 5 mg Dextrose (D50w Syringe 50 Ml*) 12.5 gm IV PUSH .FOR FS < 60 - SS PRN PRN Reason: FS < 60 Diphenhydramine HCl (Benadryl Iv*) 25 mg IV Q6H PRN PRN Reason: itching Docusate Sodium (Colace Cap*) 100 mg PO BID [facility] Last Admin: 08/12/18 10:32 Dose: 100 mg Enoxaparin Sodium (Lovenox(*)) 40 mg SUBCUT Q24H [facility] Last Admin: 08/12/18 10:31 Dose: 40 mg Fenofibrate (Tricor) 54 mg PO BEDTIME [facility] Last Admin: 08/11/18 21:02 Dose: Not Given Gabapentin (Neurontin Cap(*)) 600 mg PO 0000,0600,1200,1800 [facility] Last Admin: 08/12/18 11:38 Dose: 600 mg Insulin Glargine (Lantus(*)) 35 units SUBCUT Q12HR [facility] Last Admin: 08/12/18 10:31 Dose: 35 units Insulin Human Lispro (Humalog*) 0 units SUBCUT AC [facility]; Protocol Last Admin: 08/12/18 13:23 Dose: 3 unit Isosorbide Mononitrate (Imdur Er Tab*) 60 mg PO DAILY [facility] Last Admin: 08/12/18 10:33 Dose: 60 mg Isosorbide Mononitrate (Imdur Er Tab*) 30 mg PO 2100 [facility] Last Admin: 08/11/18 20:43 Dose: 30 mg Lactulose (Lactulose*) 30 ml PO Q6H PRN PRN Reason: constipation Magnesium Hydroxide (Milk Of Magnesia Liq*) 30 ml PO BID [facility] Last Admin: 08/12/18 10:26 Dose: Not Given Magnesium Hydroxide (Milk Of Magnesia Liq*) 30 ml PO Q6H PRN PRN Reason: constipation Morphine Sulfate (Morphine Vial*) 2 mg IV Q2H PRN PRN Reason: PAIN Last Admin: 08/10/18 17:18 Dose: 2 mg Morphine Sulfate (Ms Contin(*)) 15 mg PO Q12H [facility] Last Admin: 08/12/18 16:18 Dose: 15 mg Multivitamins (Theragran Tab*) 1 tab PO DAILY [facility] Last Admin: 08/12/18 10:33 Dose: 1 tab Nitroglycerin (Nitroglycerin Tab 0.4 Mg*) 0.4 mg SL Q5M PRN PRN Reason: CHEST PAIN Pto: Ranexa Er 1000 (Mg) 1 dose PO 0600,1800 [facility] Last Admin: 08/12/18 06:09 Dose: 1 dose Ondansetron HCl (Zofran Inj*) 4 mg IV Q6H PRN PRN Reason: nausea Oxycodone HCl (Roxycodone Tab*) 10 mg PO Q4H PRN PRN Reason: PAIN - SEVERE Last Admin: 08/12/18 16:20 Dose: 10 mg Oxycodone HCl (Roxycodone Tab*) 5 mg PO Q4H PRN PRN Reason: PAIN - MILD TO MODERATE Pharmacy Profile Note (Coumadin Daily Reminder*) 1 note FOLLOW UP 1700 [facility] Last Admin: 08/11/18 15:45 Dose: Not Given Spironolactone (Aldactone Tab*) 50 mg PO QAM [facility] Last Admin: 08/12/18 10:32 Dose: 50 mg Tizanidine HCl (Zanaflex Tab*) 10 mg PO Q4H PRN PRN Reason: SPASM/PAIN Tramadol HCl (Ultram*) 50 mg PO Q6H PRN PRN Reason: PAIN - MILD TO MODERATE Last Admin: 08/12/18 10:34 Dose: 50 mg Zolpidem Tartrate (Ambien Tab*) 10 mg PO BEDTIME [facility] Last Admin: 08/11/18 22:30 Dose: 10 mg Vital Signs - 8 hr 08/12/18 08/12/18 08/12/18 09:09 10:34 11:19 Temperature 98.9 F Pulse Rate 82 69 Respiratory 16 16 16 Rate Blood Pressure 146/50 102/34 (mmHg) O2 Sat by Pulse 98 94 Oximetry 08/12/18 08/12/18 08/12/18 11:38 16:18 16:20 Temperature Pulse Rate Respiratory 18 18 18 Rate Blood Pressure (mmHg) O2 Sat by Pulse Oximetry Oxygen Devices in Use Now: None Appearance: Pleasant lady sitting up in bed in NAD. Eyes: No Scleral Icterus Ears/Nose/Mouth/Throat: Mucous Membranes Moist Neck: Trachea Midline Respiratory: Symmetrical Chest Expansion and Respiratory Effort, Clear to Auscultation Cardiovascular: RRR - Normal S1 and S2 Extremities: - - left leg sensation intact, good pulses and capillary refill Neurological: Alert and Oriented x 3, NL Muscle Strength and Tone Result Diagrams: 08/12/18 05:21 08/12/18 05:21 Assess/Plan/Problems-Billing Assessment: Mrs Smith is a 68yo F with PMH of obesity with BMI 35.2, type 2 DM, HTN, CAD s/p 6 stents (last in 2012), HLD, hemochromatosis, SHAKIR, CKD stage 3, who presented for an elective left LUIS ARMANDO. Hospitalist service consulted to manage comorbidities. - Patient Problems (1) Status post total hip replacement, left Comment: - Management as per Ortho. (2) Diabetes Comment: - Controlled - continue Lantus 35 BID and Lispro SS. (3) CAD (coronary artery disease) Comment: - Stable. - Continue Aspirin, Atorvastatin, Carverdilol, Imdur, and Ranexa. (4) HTN (hypertension) Comment: - Controlled. - Continue Coreg, Imdur, Amlodipine with holding parameters. - Would resume Losartan on discharge with holding parameters (hold for SBP<120) . (5) HLD (hyperlipidemia) Comment: - Continue Atorvastatin and Tricor. (6) CKD stage 3 due to type 2 diabetes mellitus Comment: - Monitor renal function. (7) SHAKIR (obstructive sleep apnea) Comment: - Continue CPAP. (8) DVT prophylaxis Comment: - Lovenox as per Ortho. (9) DNR (do not resuscitate) Status and Disposition: Hospitalist service will continue to follow with you.
[2018-08-12] MEDS: Isosorbide Mononitrate ER TAB* 30 MG PO SCH (21:00)
[2018-08-12] MEDS: Atorvastatin* 40 MG TAB PO SCH (21:00)
[2018-08-12] MEDS: Zolpidem TAB* 10 MG PO SCH (22:47)
[2018-08-13] MEDS: Gabapentin CAP(*) 300 MG PO SCH ×3 (00:20→12:15)
[2018-08-13] MEDS: Morphine TAB Extended Release (*) 15 MG TAB.ER PO SCH (03:53)
[2018-08-13] MEDS: RANEXA 1000 MG PO SCH (05:49)
[2018-08-13 06:31] LABS: Hematocrit 27 % (35-47); Hemoglobin 9.1 g/dl (12.0-16.0); Mean Platelet Volume 10.4 fL (7.4-10.4); Platelet Count 162 10^3/ul (150-450)
[2018-08-13 06:48] LABS: INR 1.33 (0.77-1.02)
[2018-08-13] MEDS: Insulin LISPRO* 1 UNITS UNIT SUBCUT SCH (08:53)
[2018-08-13] MEDS: amLODIPine TAB* 5 MG PO SCH (08:54)
[2018-08-13] MEDS: Aspirin EC TAB* 81 MG TAB.EC PO SCH (08:55)
[2018-08-13] MEDS: Carvedilol TAB* 6.25 MG PO SCH (08:55)
[2018-08-13] MEDS: Docusate CAP* 100 MG PO SCH (08:55)
[2018-08-13] MEDS: Spironolactone TAB* 25 MG PO SCH (08:56)
[2018-08-13] MEDS: Enoxaparin(*) 40 MG/0.4 ML SYR SUBCUT SCH (08:57)
[2018-08-13] MEDS: Vitamin THERAPEUTIC TAB PO SCH (08:58)
[2018-08-13] MEDS: Insulin GLARGINE(*) 1 UNITS UNIT SUBCUT SCH (08:58)
[2018-08-13] MEDS: Magnesium Hydroxide LIQ* 30 ML UDC PO SCH (08:58)
--- NOTE | 2018-08-13 10:05 | PN ---
Progress Note - Progress Note Date of Service: 08/13/18 SOAP: Subjective: []Patient seen at bedside, feeling well. Denies SOB, dizziness. She feels ready to go to [place] [facility] today. Awaiting final insurance authorization. Objective: [] Vital Signs Temp 99.8 F 08/13/18 07:52 Pulse 64 08/13/18 07:52 Resp 18 08/13/18 07:52 BP 110/44 08/13/18 07:52 Pulse Ox 96 08/13/18 07:52 Intake & Output 08/12/18 08/13/18 08/13/18 18:59 06:59 18:59 Intake Total 250 1000 550 Output Total 450 750 Balance -200 250 550 Weight 197 lb 11.2 oz Intake: Oral 250 1000 550 Output: Urine 450 750 Other: # Bowel Movements 0 Laboratory Results - last 24 hr 08/12/18 08/12/18 08/12/18 11:29 17:40 20:41 Hgb Hct Plt Count MPV INR (Anticoag Therapy) POC Glucose (mg/dL) 182 H 130 H 145 H 08/13/18 08/13/18 08/13/18 06:06 06:06 07:27 Hgb 9.1 L Hct 27 L Plt Count 162 MPV 10.4 INR (Anticoag Therapy) 1.33 H POC Glucose (mg/dL) 189 H Left hip wound benign calf NT and soft +DF left ankle sensation intact distally Assessment: []s/p left total hip arthroplasty POD #3 Plan: []Discharge to [facility] [facility] today if auth received Lovenox 40 mg sq q24 hrs for DVT prophylaxis follow up as scheduled with Dr. Heller
[2018-08-13] MEDS: Isosorbide Mononitrate ER TAB* 60 MG PO SCH (10:08)
[2018-08-13 12:03] VITALS: BP 110/48
[2018-08-13] MEDS: Cyclobenzaprine TAB* 10 MG PO PRN (12:07)
--- NOTE | 2018-08-13 12:29 | DS ---
AMENDED REPORT NOW INCLUDES COSIGNER DESIGNATION DATE OF ADMISSION: 08/10/2018. DATE OF DISCHARGE: 08/13/2018. ATTENDING PHYSICIAN: Dr. Cait Heller * (dictated by THERESE Lehman). ADMISSION DIAGNOSIS: Severe end-stage degenerative osteoarthritis left hip joint. DISCHARGE DIAGNOSIS: Severe end-stage degenerative osteoarthritis left hip joint. SURGERY PERFORMED: Left total hip arthroplasty. HOSPITAL COURSE: The patient is a 68-year-old female with increasing severe left hip pain. Her plan films revealed [id number] osteoarthritis. She failed conservative management with anti-inflammatories, pain medications, interarticular cortisone injection, and physical therapy. Due to her continued pain and decrease quality of life, she elected to proceed with total hip arthroplasty. She was taken to the operating room under the care of Dr. Cait Heller on the date of 08/10/2018. She tolerated the procedure well and left the operating room in stable condition. Postoperatively, she progressed satisfactorily with her physical therapy and occupational therapy goals. She was followed by the Hospitalist Service for her medical comorbidities. She had no medical complications. The patient elected to go to [facility] for additionally physical therapy and occupational therapy prior to returning home. She was found to be an acceptable candidate for discharge to their care on the day of 08/13/2018. CONDITION ON DISCHARGE: Temperature 99.4, pulse 71, respiratory rate 16, O2 saturations 94 percent on room air, blood pressure 135/42. PLAN: Discharge to [facility]. She will continue to be weightbearing as tolerated on the left lower extremity. She will use Lovenox 40 mg subcu daily for 30 days postoperatively for postop DVT prophylaxis. She has been on narcotic pain medications prior to her surgery. She has been prescribed MS Contin 15 mg p.o. b.i.d., Tramadol 50 mg p.o. q.6 hours prn mild pain, and Oxycodone 10 mg p.o. q.4 hours prn mild to moderate pain. She also will continue on her muscle relaxant Tizanidine. We recommend a follow-up as scheduled in roughly 10 to 14 days in the office with Dr. Heller. Paper prescriptions for her narcotic pain medications were also written today and placed on her chart for [facility] as requested. THERESE PISANO [id number]/[facility] #: [id number] [facility]
== END 2018-08-13 13:20 | DRG 470 ==
LOC: AA 06:39 → SSU 14:37
PROVIDERS: ADMIT Orthopaedic Surgery Adult Reconstructive Orthopaedic Surgery; ATTEND Orthopaedic Surgery Adult Reconstructive Orthopaedic Surgery
PROC: 0SRB04A Replacement of Left Hip Joint with Ceramic on Polyethylene Synthetic Substitute, Uncemented, Open Approach (ICD-10-PCS; principal; 2018-08-10 09:00)
DX: M16.12 Unilateral primary osteoarthritis, left hip (principal); I25.10 Atherosclerotic heart disease of native coronary artery without angina pectoris; Z96.641 Presence of right artificial hip joint; E66.9 Obesity, unspecified; G47.33 Obstructive sleep apnea (adult) (pediatric); E83.119 Hemochromatosis, unspecified; I12.9 Hypertensive chronic kidney disease with stage 1 through stage 4 chronic kidney disease, or unspecified chronic kidney disease; N18.3 Chronic kidney disease, stage 3 (moderate); E11.22 Type 2 diabetes mellitus with diabetic chronic kidney disease; N18.9 Chronic kidney disease, unspecified; E78.5 Hyperlipidemia, unspecified; Z66 Do not resuscitate; Z96.1 Presence of intraocular lens; F41.9 Anxiety disorder, unspecified; F32.9 Major depressive disorder, single episode, unspecified; M54.12 Radiculopathy, cervical region; M25.752 Osteophyte, left hip; Z90.710 Acquired absence of both cervix and uterus; Z88.8 Allergy status to other drugs, medicaments and biological substances; Z83.3 Family history of diabetes mellitus; Z68.35 Body mass index [BMI] 35.0-35.9, adult; Z98.42 Cataract extraction status, left eye; Z98.41 Cataract extraction status, right eye; Z83.79 Family history of other diseases of the digestive system; Z82.49 Family history of ischemic heart disease and other diseases of the circulatory system; I25.2 Old myocardial infarction; Z83.49 Family history of other endocrine, nutritional and metabolic diseases
CPT/HCPCS: 36415; 72170; 80048; 85014; 85018; 85025; 85049; 85610; 88304; 88311; A9270-GY; C1776; G8978-GP-CJ; G8979-GP-CI; G8987-GO-CJ; G8988-GO-CI; J0330; J0690; J1100; J1170; J1240; J1650; J1885; J2250; J2270; J2405; J2704; J2795; J3010